=== PATIENT | female | born 1955 | race Caucasian/White ===

== ENCOUNTER → 2016-10-29 | Outpatient (CLI) | payer MEDICARE, MEDICAID ==
[~2016-10-29] MED LIST: /CELE20CA PO; /DULO30CA OR; /MAGN64TA PO; /SUCR1TA OR; ADVIL PO; ALBU20IN INH; ALEV1TAB PO; ALEV220C2 PO; AMBI10TA OR; ARGININE PO; BISA5TAB7 PO; BUTR5DIS2 TD; CELE100C OR; CLON-412 PO; CO Q30CA4 PO; COLA100C3 PO; DEPA250T2 PO; DOCU10CA PO; DOCU10ELUD PO; EMLA2.5C EX; FISH500C PO; GABA-283 PO; GARC500T PO; IRON325T3 PO; LEVO25TA4 PO; LIDO1OIN2 TOP; MAGN250T PO; MORP-39 PO; MULTTAB4 PO; NATU400T PO; NEUR400C OR; PANT40TA2 PO; PENI50TA PO; PERC5TAB8 PO; PRED5TAB OR; PRED5TAB PO; PRIL40CA OR; PROBCAP4 PO; SKINNY FIBER PO; SUCR1SUS PO; TRAM50TA2 OR; TRAM50TA2 PO; TRAZ100T2 PO; VENTAER INH; VITA400C35 PO; VITA500T53 PO; VITAMIN D50000 UNT OR; [UNRECOGNIZED DRUG - CODE] PO; [UNRECOGNIZED DRUG - OTHER] PO; [UNRECOGNIZED DRUG - OTHER] PO
--- NOTE | 2016-11-12 01:14 | ECWPNPC ---
PATIENT NAME: DARLENE HICKEY : 1955 GENDER: FEMALE VISIT DATE: 10/29/2016 DISCHARGE DATE: 10/29/16 1212 VISIT LOCKED DATE TIME: PHYSICIAN: AMY SHAH RESOURCE: AMY SHAH REASON FOR APPOINTMENT 1. NECK HISTORY OF PRESENT ILLNESS HISTORY OF PRESENT ILLNESS: HERE FOR F/U AND MANAGEMENT OF CHRONIC NECK PAIN.PATIENT HAS RHEUMATOID ARTHRITIS ACCORDING TO NEUROLOGY BUT FOLLOWS WITH RHEUMATOLOGY AND SAYS THEY DONT FEEL IT IS BAD ENOUGH TO BE ON ANTIRHEUMATOID MEDICATION. RATING PAIN VAS 4/10.PAIN IS DESCRIBED INTERMITTENT SORENESS.CURRENTLY USING MS CONTIN 30MG BID,OXYCODONE 10/325 Q6H PRN AND TRAMADOL 50MG TID.C/O OF INCREASE IN MAINLY LEFT NECK AND RIGHT KNEE PAIN LATELY.DISCUSSED PLAN TO SLOWLY REDUCE AND DISCONTINUE HIGH DOSE DAILY NARCOTIC EXPOSURE AND PATIENT IS RECEPTIVE.SHE FORGOT HER MEDICATION TODAY. PAIN THE PATIENT DESCRIBES THE PAIN... THE PATIENT DESCRIBES THE PAIN... THE PATIENT DESCRIBES THE PAIN... THE PATIENT DESCRIBES THE PAIN... FALL RISK SCREENING: SCREENING :NO FALLS IN THE PAST YEAR CURRENT MEDICATIONS TAKING VENTOLIN HFA 108 (90 BASE) MCG/ACT AEROSOL SOLUTION 2 PUFFS INHALATION QID PRN TAKING CARAFATE 1 GM TABLET 1 TABLET ORALLY THREE X DAILY TAKING COLACE 100 MG CAPSULE 1 CAPSULE NEEDED ORALLY TWICE A DAY TAKING CYMBALTA 60 MG CAPSULE DELAYED RELEASE PARTICLES 1 CAPSULE ORALLY ONCE A DAY TAKING MULTIVITAMINS TABLET 1 TABLET ORALLY ONCE A DAY TAKING PROTONIX 40 MG TABLET DELAYED RELEASE 1 TABLET ORALLY ONCE A DAY TAKING AMBIEN 10 MG TABLET 1 TABLET AT BEDTIME NEEDED ORALLY ONCE A DAY- MDD=1 TAKING GARCINIA CAMBOGIA-CHROMIUM 500-200 MG-MCG TABLET ORALLY DAILY TAKING LIDOCAINE 5 % OINTMENT 1 APPLICATION TO AFFECTED AREA NEEDED EXTERNALLY DAILY NEEDED TO LOW BACK TAKING GABAPENTIN 400 MG TABLET 1 CAPSULE ORALLY TID TAKING ROPINIROLE HCL 0.25 MG TABLET DIRECTED ORALLY 1 TAB 2HR PRE HS TAKING LEVOTHYROXINE SODIUM 25 MCG TABLET 1 TABLET ON AN EMPTY STOMACH IN THE MORNING ORALLY ONCE A DAY TAKING TRAMADOL HCL 50 MG TABLET 1 TABLET NEEDED ORALLY EVERY 6 -8 PRN PAIN MDD3 TAKING MORPHINE SULFATE ER 30 MG TABLET EXTENDED RELEASE 1 TABLET ORALLY EVERY 12 HRS MDD2 TAKING OXYCODONE-ACETAMINOPHEN 10-325 MG TABLET 1 TABLET NEEDED ORALLY EVERY 6 HRS PRN MDD-4 TAKING VITAMIN D (ERGOCALCIFEROL) 96115 UNIT CAPSULE 1 CAPSULE ORALLY 2X/WEEK NOT-TAKING FISH OIL 1200 MG CAPSULE 1 CAPSULE ORALLY ONCE A DAY NOT-TAKING MILK THISTLE 500 MG CAPSULE ORALLY DAILY NOT-TAKING SLOW-MAG 71.5-119 MG TABLET DELAYED RELEASE 2 TABLETS ORALLY ONCE A DAY NOT-TAKING VITAMIN D3 14484 UNIT CAPSULE 1 TABLET ORALLY TWICE A WEEK NOT-TAKING VITAMIN E 100 UNIT CAPSULE 1 CAPSULE ORALLY ONCE A DAY DISCONTINUED VITAMIN D 2000 UNIT TABLET 1 TABLET ORALLY ONCE A DAY MEDICATION LIST REVIEWED AND RECONCILED WITH THE PATIENT PAST MEDICAL HISTORY HX NECK FUSION HX ULCERS FIBROMYALGIA GERD HYPOTHYROID KNEE PAIN - ARTHRITIS OSTEOARTHRITIS INSOMNIA LOW VITAMIN D DEGENERATIVE DISC DISEASE OBESITY HIGH - 310 DIVERTICULITIS SLEEP APNEA 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 POS COPD HISTORY OF PULMONARY EMBOLISM VERTIGO GASTRIC ULCER ANEURESYM BRAIN STEM ALLERGIES CIPRO: THROAT SWELLING: ALLERGY LYRICA: MEMORY LOSS: SIDE EFFECTS ROBAXIN: RASH: ALLERGY SURGICAL HISTORY EYE OPERATION - LEFT "LAZY EYE" 1964 C - SECTION 1979 C- SECTION 1988 BREAST REDUCTION 1998 GASTRIC BYPASS 2005 GALLBALDDER 2008 CYST REMOVAL (BENIGN) ARM AND BACK 2009 LEFT KNEE SURGERY 2009 RIGHT KNEE SURGERY 2010 HERNIA SURGERY 2009 APPENDECTOMY WITH COMPLICATIONS (COLOSTOMY BAG - REMOVED 10/07) 2010 REMOVED SEVERAL CYSTS FROM COLON AND BREASTS (ABSCESSES) 2010 HERNIAS REPAIRED X 2 09/2011 NECK FUSION C5-6-7-8 2010 UPPER ENDOSCOPY 10/2011 COLONOSCOPY 09/06 EPIDURAL 02/04/15 INCISIONAL HERNIA REPAIR 09/2016 HOSPITALIZATION/MAJOR DIAGNOSTIC PROCEDURE COPD FLARE UP X2 05/11 SURGERY SURGERY 10/12 REVIEW OF SYSTEMS CONSTITUTIONAL: ANY CHANGE IN YOUR MEDICAL CONDITION? YES, IN SEPTEMBER WAS IN HOSPITAL FOR ABD. PAIN. HAD INCISIONAL HERNIA REPAIR AND FOUND INFECTED MESH FROM CHOLECYSTECTOMY SURGERY. ALSO HAD EGD AND ULCER WAS DIAGNOSED . CHILLS NO . FEVER NO . INFECTION: DO YOU HAVE NEW INFECTIONS? NO . DO YOU HAVE HISTORY OF MRSA? NO . MUSCULOSKELETAL: ANY NEW PATTERNS OF PAIN OR NUMBNESS? NO . GASTROENTEROLOGY: ANY NEW CHANGE IN BOWEL CONTROL? NO . GENITOURINARY: ANY NEW CHANGE IN BLADDER CONTROL? NO . IS THERE A CHANCE YOU COULD BE ? NO . HEMATOLOGY/LYMPH: DO YOU TAKE ANY BLOOD THINNERS? (FOR EXAMPLE- COUMADIN, PLAVIX, AGGRENOX, PLATEL, PRADAXA, OR XARELTO) NO . WHEN WAS YOUR LAST DOSE? DATE: TIME: . NEUROLOGY: HAVE YOU FALLEN IN THE PAST 6 MONTHS? NO . ANY NEW EXTREMITY NUMBNESS OR WEAKNESS? NO . CARDIOLOGY: DO YOU HAVE A PACEMAKER OR DEFIBRILLATOR? NO . RESPIRATORY: HAVE YOU BEEN SICK IN THE PAST WEEK? NO . FEVER NO . FLU LIKE SYMPTOMS? NO . COUGH NO . INTEGUMENTARY: DO YOU HAVE ANY RASHES OR OPEN SORES? NO . ALLERGIC/IMMUNO: ARE YOU ALLERGIC TO SHELLFISH OR IV DYE? NO . ANY NEW ALLERGIES? NO . PSYCHIATRIC: DO YOU HAVE THOUGHTS OF HURTING YOURSELF OR SOMEONE ELSE? NO . ARE YOU ABUSED, NEGLECTED, OR IN AN UNSAFE ENVIRONMENT? NO . ENDOCRINOLOGY: ARE YOU DIABETIC? NO . OTHER: DO YOU NEED ANY PRESCRIPTIONS? NO . IF YES, PLEASE LIST: ____ . ANY NEW PROBLEMS WITH YOUR MEDICATIONS? NO . WHEN DID YOU LAST EAT? ____ . WHEN DID YOU LAST DRINK? ____ . WHAT DID YOU LAST DRINK? ____ . NAME OF PERSON DRIVING YOU HOME? ____ . DO YOU HAVE ANY OTHER QUESTIONS OR CONCERNS NO . REVIEWED BY: PROVIDER: AMY BENTON . VITAL SIGNS WT 193.4 LBS, HT 62.5 IN, BMI 34.81 INDEX, BP 146/67 MM HG, HR 74 /MIN, RR 18 /MIN, TEMP 97.6 F, OXYGEN SAT % 96%, NA INITIALS TL 1114, REVIEWED BY: AD. EXAMINATION GENERAL EXAMINATION: LUNGS:LUNG SOUNDS ARE CLEAR. HEART:HEART RATE REGULAR. MUSCULOSKELETAL:*, MUSCLE STRENGTH TESTING 5/5 BILATERAL UPPER EXTREMITIES , PALPATION: POSITIVE FOR PAIN OVER CERVICAL SPINE. POSITIVE FOR PAIN OVER CERVICAL PARASPINALS. DIAGNOSTIC: . ASSESSMENTS POST LAMINECTOMY SYNDROME - M96.1 (PRIMARY) CHRONIC PRESCRIPTION OPIATE USE - Z79.891 INFLAMMATORY ARTHROPATHY - M19.90 TREATMENT POST LAMINECTOMY SYNDROME CONTINUE COLACE CAPSULE, 100 MG, 1 CAPSULE NEEDED, ORALLY, TWICE A DAY CONTINUE CYMBALTA CAPSULE DELAYED RELEASE PARTICLES, 60 MG, 1 CAPSULE, ORALLY, ONCE A DAY CONTINUE ROPINIROLE HCL TABLET, 0.25 MG, DIRECTED, ORALLY, 1 TAB 2HR PRE HS REFILL TRAMADOL HCL TABLET, 50 MG, 1 TABLET NEEDED, ORALLY, EVERY 6 -8 PRN PAIN MDD3, 30 DAY(S), 90, REFILLS 1 DECREASE MORPHINE SULFATE ER TABLET EXTENDED RELEASE, 30 MG, 1 TABLET, ORALLY, DAILY MDD1, 30 DAY(S), 30, REFILLS 0 START MORPHINE SULFATE ER TABLET EXTENDED RELEASE, 15 MG, 1 TABLET, ORALLY, BEFORE BEDTIME, 30 DAY(S), 30, REFILLS 0 NOTES: ISTOP REGISTRY REVIEWED AND DEMNOSTRATES COMPLLIANCE. BRINGS IN MEDICATIONS WHICH IS APPROPRIATE FOR WHAT WAS DISPENSED. RECENT URINE TOXICOLOGY REVIEWED. NO UNAUTHORIZED MEDICATIONS. NO ILLICIT SUBSTANCES AND PRESCRIBED MEDICATIONS WERE PRESENT. , RISKS AND BENEFITS OF NARCOTIC/OPIOD MEDICATIONS WERE REVIEWED WITH PATIENT - THIS INCLUDES BUT IS NOT LIMITED TO RISK OF DEPENDANCE/DEVELOPMENT OF ADDICTION, MOOD DISTURBANCE AND DEPRESSION, OSTEOPOROSIS, HORMONAL AND LABIDAL CHANGES, RESPIRATORY DEPRESSION AND . PATIENT IS ADVISED NOT TO DRIVE WHILE ON THESE MEDICATIONS.URINE TOX TODAY. REFERRAL TO:PHYSICAL THERAPIST REASON:CERVICALGIA-MYOFASCIAL [id number] MYOFASCIAL RELEASE PROCEDURE CODES FA211 ESTABILISHED PATIENT [facility] CHARGE G8730 PAIN ASSESS POS TOOL F/U PLAN DOC G8427 DOC MEDS VERIFIED W/PT OR RE DISPOSITION & COMMUNICATION FOLLOW UP 6 WEEKS ELECTRONICALLY SIGNED BY CHETAN RENEE ON 11/11/2016 AT 04:53 PM EDT DISCLAIMER : THIS IS A VISIT SUMMARY EXTRACTED FROM THE [facility]. IT IS NOT A COPY OF THE [employer] PROGRESS NOTE. [facility]
== END ==
LOC: M PAIN 10:20
PROVIDERS: ATTEND Nurse Practitioner Family
DX: G89.29 Other chronic pain (principal); M54.2 Cervicalgia; M96.1 Postlaminectomy syndrome, not elsewhere classified; M79.7 Fibromyalgia; K21.9 Gastro-esophageal reflux disease without esophagitis; E03.9 Hypothyroidism, unspecified; M17.10 Unilateral primary osteoarthritis, unspecified knee; G47.30 Sleep apnea, unspecified; E55.9 Vitamin D deficiency, unspecified; J44.9 Chronic obstructive pulmonary disease, unspecified; E66.9 Obesity, unspecified; Z68.34 Body mass index [BMI] 34.0-34.9, adult; Z79.891 Long term (current) use of opiate analgesic; Z79.899 Other long term (current) drug therapy; Z88.8 Allergy status to other drugs, medicaments and biological substances

== ENCOUNTER → 2016-11-24 | Outpatient (CLI) | payer MEDICARE, MEDICAID ==
--- NOTE | 2016-11-24 16:21 | REP ---
BILATERAL KNEE, 11 VIEWS: HISTORY: Pain. RIGHT KNEE: COMPARISON: 01/18/2014 There is no acute fracture or dislocation. There is narrowing of the joint spaces with associated osteophyte formation. A small suprapatellar joint effusion is present. IMPRESSION: Degenerative change as described above. LEFT KNEE: There is no acute fracture or dislocation. There is narrowing of the joint spaces with associated osteophyte formation. A small suprapatellar joint effusion is present.
== END ==
LOC: M CLY 12:03
PROVIDERS: ATTEND Internal Medicine Rheumatology
DX: M25.462 Effusion, left knee (principal); M17.0 Bilateral primary osteoarthritis of knee; R73.01 Impaired fasting glucose; E78.5 Hyperlipidemia, unspecified; E03.9 Hypothyroidism, unspecified; Z98.890 Other specified postprocedural states

== ENCOUNTER → 2016-11-24 | Outpatient (REF) | payer MEDICARE, MEDICAID ==
[2016-11-24 17:32] LABS: VITAMIN B12 LEVEL 453 PG/ML (247-911)
[2016-11-24 17:33] LABS: FOLATE 17.4 NG/ML (>5.4)
[2016-11-24 18:15] LABS: BASO % 0.4 % (0.0-1.0); EOS # 0.2 K/mm3 (0.0-0.50); EOS % 1.9 % (0.0-3.0); LARGE UNSTAINED CELL # 0.1 K/mm3 (0.0-0.4); LARGE UNSTAINED CELL % 1.3 % (0.0-4.0); LYMPH # 2.7 K/mm3 (1.5-4.5); LYMPH % 29.3 % (24.0-44.0); MEAN CORPUSCULAR HEMOGLOBIN 27.2 pg (27.0-33.0); MEAN CORPUSCULAR HGB CONC 31.4 g/dl (32.0-36.5); MEAN CORPUSCULAR VOLUME 86.5 fl (80.0-96.0); MONO # 0.4 K/mm3 (0.0-0.8); MONO % 4.5 % (0.0-5.0); NEUTROPHILS # 5.7 K/mm3 (1.8-7.7); NEUTROPHILS % 62.6 % (36.0-66.0); PLATELET COUNT, AUTOMATED 310 k/mm3 (150-450); RED CELL DISTRIBUTION WIDTH 14.4 % (11.5-14.5); WHITE BLOOD COUNT 9.2 K/mm3 (4.0-10.0)
[2016-11-24 18:31] LABS: ALBUMIN 3.5 GM/DL (3.2-5.2); ALBUMIN/GLOBULIN RATIO 1.25 (1.00-1.93); ALKALINE PHOSPHATASE 114 U/L (45-117); ALT/SGPT 17 U/L (12-78); ANION GAP 7 MEQ/L (8-16); AST/SGOT 11 U/L (15-37); BILIRUBIN,TOTAL 0.4 MG/DL (0.2-1.0); BLOOD UREA NITROGEN 14 MG/DL (7-18); CALCIUM LEVEL 8.2 MG/DL (8.8-10.2); CARBON DIOXIDE LEVEL 29 MEQ/L (21-32); CHLORIDE LEVEL 105 MEQ/L (98-107); CHOLESTEROL LEVEL 176 MG/DL (<200); FERRITIN 27 NG/ML (8-252); GLOMERULAR FILTRATION RATE > 60.0 (>45); GLUCOSE, FASTING 81 MG/DL (80-110); MAGNESIUM LEVEL 1.8 MG/DL (1.8-2.4); PERCENT SATURATION 9.3 % (13.2-37.4); SODIUM LEVEL 141 MEQ/L (136-145); TOTAL IRON BINDING CAPACITY 375 UG/DL (250-450); TOTAL PROTEIN 6.3 GM/DL (6.4-8.2); TRIGLYCERIDES LEVEL 87 MG/DL (<150)
== END ==
LOC: M SFHCCLAY 11:46
PROVIDERS: ATTEND Nurse Practitioner Family
DX: R73.01 Impaired fasting glucose (principal); E78.5 Hyperlipidemia, unspecified; E03.9 Hypothyroidism, unspecified; Z98.890 Other specified postprocedural states

== ENCOUNTER → 2017-01-06 | Outpatient (CLI) | payer MEDICARE, MEDICAID ==
[~2017-01-06] MED LIST changes: -COLA100C3 PO; +COLA100C5 PO
--- NOTE | 2017-01-28 01:00 | ECWPNPC ---
PATIENT NAME: DARLENE HICKEY : 1955 GENDER: FEMALE VISIT DATE: 01/06/2017 DISCHARGE DATE: 01/06/17 1235 VISIT LOCKED DATE TIME: PHYSICIAN: AMY SHAH RESOURCE: AMY SHAH REASON FOR APPOINTMENT 1. NECK HISTORY OF PRESENT ILLNESS HISTORY OF PRESENT ILLNESS: HERE FOR F/U AND MANAGEMENT OF CHRONIC NECK PAIN.PATIENT HAS RHEUMATOID ARTHRITIS ACCORDING TO NEUROLOGY BUT FOLLOWS WITH RHEUMATOLOGY AND SAYS THEY DONT FEEL IT IS BAD ENOUGH TO BE ON ANTIRHEUMATOID MEDICATION. RATING PAIN VAS 4/10.PAIN IS DESCRIBED INTERMITTENT SORENESS.CURRENTLY USING MS CONTIN 15MG TWO IN AM AND ONE AT NIGHT,OXYCODONE 10/325 Q6H PRN AND TRAMADOL 50MG TID.C/O OF INCREASE IN MAINLY LEFT NECK AND RIGHT KNEE PAIN LATELY.DISCUSSED PLAN TO SLOWLY REDUCE AND DISCONTINUE HIGH DOSE DAILY NARCOTIC EXPOSURE AND PATIENT IS RECEPTIVE.SHE FORGOT HER MEDICATION TODAY. PAIN THE PATIENT DESCRIBES THE PAIN... THE PATIENT DESCRIBES THE PAIN... THE PATIENT DESCRIBES THE PAIN... THE PATIENT DESCRIBES THE PAIN... THE PATIENT DESCRIBES THE PAIN... FALL RISK SCREENING: SCREENING :NO FALLS IN THE PAST YEAR CURRENT MEDICATIONS TAKING VENTOLIN HFA 108 (90 BASE) MCG/ACT AEROSOL SOLUTION 2 PUFFS INHALATION QID PRN TAKING CARAFATE 1 GM TABLET 1 TABLET ORALLY THREE X DAILY TAKING MULTIVITAMINS TABLET 1 TABLET ORALLY ONCE A DAY TAKING GABAPENTIN 400 MG TABLET 1 CAPSULE ORALLY TID TAKING LEVOTHYROXINE SODIUM 25 MCG TABLET 1 TABLET ON AN EMPTY STOMACH IN THE MORNING ORALLY ONCE A DAY TAKING VITAMIN D (ERGOCALCIFEROL) 52016 UNIT CAPSULE 1 CAPSULE ORALLY 2X/WEEK TAKING COLACE 100 MG CAPSULE 1 CAPSULE NEEDED ORALLY TWICE A DAY TAKING TRAMADOL HCL 50 MG TABLET 1 TABLET NEEDED ORALLY EVERY 6 -8 PRN PAIN MDD3 TAKING MORPHINE SULFATE ER 30 MG TABLET EXTENDED RELEASE 1 TABLET ORALLY DAILY MDD1 TAKING FERROUS SULFATE 325 (65 FE) MG TABLET DELAYED RELEASE 1 TABLET ORALLY TWICE A DAY TAKING MORPHINE SULFATE ER 15 MG TABLET EXTENDED RELEASE 1 TABLET ORALLY Q8H TID MDD3 TAKING OXYCODONE-ACETAMINOPHEN 10-325 MG TABLET 1 TABLET NEEDED ORALLY EVERY 6 HRS PRN MDD-4 TAKING PROTONIX 40 MG TABLET DELAYED RELEASE 1 TABLET ORALLY ONCE A DAY TAKING AMBIEN 10 MG TABLET 1 TABLET AT BEDTIME NEEDED ORALLY ONCE A DAY- MDD=1 TAKING CYMBALTA 60 MG CAPSULE DELAYED RELEASE PARTICLES 1 CAPSULE ORALLY ONCE A DAY TAKING ROPINIROLE HCL 0.25 MG TABLET DIRECTED ORALLY 1 TAB 2HR PRE HS NOT-TAKING LIDOCAINE 5 % OINTMENT 1 APPLICATION TO AFFECTED AREA NEEDED EXTERNALLY DAILY NEEDED TO LOW BACK MEDICATION LIST REVIEWED AND RECONCILED WITH THE PATIENT PAST MEDICAL HISTORY HX NECK FUSION HX ULCERS FIBROMYALGIA GERD HYPOTHYROID KNEE PAIN - ARTHRITIS OSTEOARTHRITIS INSOMNIA LOW VITAMIN D DEGENERATIVE DISC DISEASE OBESITY HIGH - 310 DIVERTICULITIS SLEEP APNEA 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 POS COPD HISTORY OF PULMONARY EMBOLISM VERTIGO GASTRIC ULCER ANEURESYM BRAIN STEM ALLERGIES CIPRO: THROAT SWELLING: ALLERGY LYRICA: MEMORY LOSS: SIDE EFFECTS ROBAXIN: RASH: ALLERGY SURGICAL HISTORY EYE OPERATION - LEFT "LAZY EYE" 1964 C - SECTION 1979 C- SECTION 1988 BREAST REDUCTION 1998 GASTRIC BYPASS 2005 GALLBALDDER 2007 CYST REMOVAL (BENIGN) ARM AND BACK 2009 LEFT KNEE SURGERY 2008 RIGHT KNEE SURGERY 2009 HERNIA SURGERY 2009 APPENDECTOMY WITH COMPLICATIONS (COLOSTOMY BAG - REMOVED 10/07) 2010 REMOVED SEVERAL CYSTS FROM COLON AND BREASTS (ABSCESSES) 2010 HERNIAS REPAIRED X 2 09/2011 NECK FUSION C5-6-7-8 2010 UPPER ENDOSCOPY 10/2011 COLONOSCOPY 09/06 EPIDURAL 02/04/15 INCISIONAL HERNIA REPAIR 09/2016 HOSPITALIZATION/MAJOR DIAGNOSTIC PROCEDURE COPD FLARE UP X2 05/11 SURGERY SURGERY 10/12 REVIEW OF SYSTEMS REVIEWED BY: PROVIDER: AMY BENTON . CONSTITUTIONAL: ANY CHANGE IN YOUR MEDICAL CONDITION? NO . CHILLS NO . FEVER NO . INFECTION: DO YOU HAVE NEW INFECTIONS? NO . DO YOU HAVE HISTORY OF MRSA? NO . MUSCULOSKELETAL: ANY NEW PATTERNS OF PAIN OR NUMBNESS? NO . GASTROENTEROLOGY: ANY NEW CHANGE IN BOWEL CONTROL? NO . GENITOURINARY: ANY NEW CHANGE IN BLADDER CONTROL? NO . IS THERE A CHANCE YOU COULD BE ? NO . HEMATOLOGY/LYMPH: DO YOU TAKE ANY BLOOD THINNERS? (FOR EXAMPLE- COUMADIN, PLAVIX, AGGRENOX, PLATEL, PRADAXA, OR XARELTO) NO . WHEN WAS YOUR LAST DOSE? DATE: TIME: . NEUROLOGY: HAVE YOU FALLEN IN THE PAST 6 MONTHS? YES, PT STATES HER KNEES GIVE OUT AND SHE FALLS ON OCCASION. . ANY NEW EXTREMITY NUMBNESS OR WEAKNESS? NO . CARDIOLOGY: DO YOU HAVE A PACEMAKER OR DEFIBRILLATOR? NO . RESPIRATORY: HAVE YOU BEEN SICK IN THE PAST WEEK? NO . FEVER NO . FLU LIKE SYMPTOMS? NO . COUGH NO . INTEGUMENTARY: DO YOU HAVE ANY RASHES OR OPEN SORES? NO . ALLERGIC/IMMUNO: ARE YOU ALLERGIC TO SHELLFISH OR IV DYE? NO . ANY NEW ALLERGIES? NO . PSYCHIATRIC: DO YOU HAVE THOUGHTS OF HURTING YOURSELF OR SOMEONE ELSE? NO . ARE YOU ABUSED, NEGLECTED, OR IN AN UNSAFE ENVIRONMENT? NO . ENDOCRINOLOGY: ARE YOU DIABETIC? NO . OTHER: DO YOU NEED ANY PRESCRIPTIONS? YES, MORPHINE, OXYCODONE, TRAMADOL, GABAPENTIN . IF YES, PLEASE LIST: ____ . ANY NEW PROBLEMS WITH YOUR MEDICATIONS? NO . WHEN DID YOU LAST EAT? ____ . WHEN DID YOU LAST DRINK? ____ . WHAT DID YOU LAST DRINK? ____ . NAME OF PERSON DRIVING YOU HOME? ____ . DO YOU HAVE ANY OTHER QUESTIONS OR CONCERNS NO . VITAL SIGNS WT 196 LBS, HT 62.5 IN, BMI 35.27 INDEX, BP 144/83 MM HG, HR 72 /MIN, RR 16 /MIN, TEMP 97.3 F, OXYGEN SAT % 94, SAFE IN ENV? (Y/N) Y, REVIEWED BY: EM. EXAMINATION GENERAL EXAMINATION: LUNGS:LUNG SOUNDS ARE CLEAR. HEART:HEART RATE REGULAR. MUSCULOSKELETAL:*, MUSCLE STRENGTH TESTING 5/5 BILATERAL UPPER EXTREMITIES , PALPATION: POSITIVE FOR PAIN OVER CERVICAL SPINE. POSITIVE FOR PAIN OVER CERVICAL PARASPINALS. DIAGNOSTIC: . ASSESSMENTS POST LAMINECTOMY SYNDROME - M96.1 (PRIMARY) CHRONIC PRESCRIPTION OPIATE USE - Z79.891 INFLAMMATORY ARTHROPATHY - M19.90 TREATMENT POST LAMINECTOMY SYNDROME REFILL GABAPENTIN TABLET, 400 MG, 1 CAPSULE, ORALLY, TID, 30 DAY(S), 90 CAPSULE, REFILLS 5 DECREASE TRAMADOL HCL TABLET, 50 MG, 1 TABLET NEEDED, ORALLY, Q6-8H MDD2, 30 DAY(S), 60, REFILLS 1 DECREASE MORPHINE SULFATE ER TABLET EXTENDED RELEASE, 15 MG, 1 TABLET, ORALLY, BID MDD2, 30 DAY(S), 60, REFILLS 0 REFILL OXYCODONE-ACETAMINOPHEN TABLET, 10-325 MG, 1 TABLET NEEDED, ORALLY, EVERY 6 HRS PRN MDD-4, 30 DAY(S), 120, REFILLS 0 NOTES: REDUCE MS CONTIN 15MG TO ONE AM AND ONE PM REDUCE TRAMADOL TO 50MG TWICE A DAY IF NEEDED, ISTOP REGISTRY REVIEWED AND DEMNOSTRATES COMPLLIANCE. BRINGS IN MEDICATIONS WHICH IS APPROPRIATE FOR WHAT WAS DISPENSED. RECENT URINE TOXICOLOGY REVIEWED. NO UNAUTHORIZED MEDICATIONS. NO ILLICIT SUBSTANCES AND PRESCRIBED MEDICATIONS WERE PRESENT. , RISKS AND BENEFITS OF NARCOTIC/OPIOD MEDICATIONS WERE REVIEWED WITH PATIENT - THIS INCLUDES BUT IS NOT LIMITED TO RISK OF DEPENDANCE/DEVELOPMENT OF ADDICTION, MOOD DISTURBANCE AND DEPRESSION, OSTEOPOROSIS, HORMONAL AND LABIDAL CHANGES, RESPIRATORY DEPRESSION AND . PATIENT IS ADVISED NOT TO DRIVE WHILE ON THESE MEDICATIONS. PROCEDURE CODES FA211 ESTABILISHED PATIENT [facility] CHARGE G8730 PAIN ASSESS POS TOOL F/U PLAN DOC G8427 DOC MEDS VERIFIED W/PT OR RE DISPOSITION & COMMUNICATION FOLLOW UP 2 MONTHS ELECTRONICALLY SIGNED BY CHETAN RENEE ON 01/27/2017 AT 07:38 PM EDT DISCLAIMER : THIS IS A VISIT SUMMARY EXTRACTED FROM THE [employer] CHART. IT IS NOT A COPY OF THE [employer] PROGRESS NOTE. YURIY
== END ==
LOC: M PAIN 11:00
PROVIDERS: ATTEND Nurse Practitioner Family
DX: M96.1 Postlaminectomy syndrome, not elsewhere classified (principal); M54.2 Cervicalgia; M19.90 Unspecified osteoarthritis, unspecified site; K21.9 Gastro-esophageal reflux disease without esophagitis; E03.9 Hypothyroidism, unspecified; G47.30 Sleep apnea, unspecified; E55.9 Vitamin D deficiency, unspecified; E66.9 Obesity, unspecified; J44.9 Chronic obstructive pulmonary disease, unspecified; Z88.8 Allergy status to other drugs, medicaments and biological substances; Z79.891 Long term (current) use of opiate analgesic; Z79.899 Other long term (current) drug therapy

== ENCOUNTER → 2017-01-27 | Outpatient (REF) | payer MEDICARE, MEDICAID ==
[2017-01-27 17:51] LABS: CALCIUM LEVEL 8.8 MG/DL (8.8-10.2)
== END ==
LOC: M SFHCCLAY 12:29
PROVIDERS: ATTEND Nurse Practitioner Family
DX: Z98.890 Other specified postprocedural states (principal)

== ENCOUNTER → 2017-03-31 | Outpatient (CLI) | payer MEDICARE, MEDICAID ==
--- NOTE | 2017-04-20 01:03 | ECWPNPC ---
PATIENT NAME: DARLENE HICKEY : 1955 GENDER: FEMALE VISIT DATE: 03/31/2017 DISCHARGE DATE: 03/31/172 VISIT LOCKED DATE TIME: PHYSICIAN: AMY SHAH RESOURCE: AMY SHAH REASON FOR APPOINTMENT 1. MEDS HISTORY OF PRESENT ILLNESS HISTORY OF PRESENT ILLNESS: PAIN THE PATIENT DESCRIBES THE PAIN... FALL RISK SCREENING: SCREENING :NO FALLS IN THE PAST YEAR CURRENT MEDICATIONS TAKING VENTOLIN HFA 108 (90 BASE) MCG/ACT AEROSOL SOLUTION 2 PUFFS INHALATION QID PRN TAKING CARAFATE 1 GM TABLET 1 TABLET ORALLY THREE X DAILY TAKING MULTIVITAMINS TABLET 1 TABLET ORALLY ONCE A DAY TAKING VITAMIN D (ERGOCALCIFEROL) 02403 UNIT CAPSULE 1 CAPSULE ORALLY 2X/WEEK TAKING COLACE 100 MG CAPSULE 1 CAPSULE NEEDED ORALLY TWICE A DAY TAKING PROTONIX 40 MG TABLET DELAYED RELEASE 1 TABLET ORALLY ONCE A DAY TAKING CYMBALTA 60 MG CAPSULE DELAYED RELEASE PARTICLES 1 CAPSULE ORALLY ONCE A DAY TAKING ROPINIROLE HCL 0.25 MG TABLET DIRECTED ORALLY 1 TAB 2HR PRE HS TAKING GABAPENTIN 400 MG TABLET 1 CAPSULE ORALLY TID TAKING LEVOTHYROXINE SODIUM 25 MCG TABLET 1 TABLET ON AN EMPTY STOMACH IN THE MORNING ORALLY ONCE A DAY TAKING SLOW-MAG 71.5-119 MG TABLET DELAYED RELEASE 2 TABLETS ORALLY ONCE A DAY TAKING TRAMADOL HCL 50 MG TABLET 1 TABLET NEEDED ORALLY Q6-8H PRN PAIN MDD2 TAKING MORPHINE SULFATE ER 15 MG TABLET EXTENDED RELEASE 1 TABLET ORALLY BID MDD2 TAKING OXYCODONE-ACETAMINOPHEN 10-325 MG TABLET 1 TABLET NEEDED ORALLY EVERY 6 HRS PRN MDD-4 TAKING AMBIEN 10 MG TABLET 1 TABLET AT BEDTIME NEEDED ORALLY ONCE A DAY- MDD=1 NOT-TAKING MORPHINE SULFATE ER 30 MG TABLET EXTENDED RELEASE 1 TABLET ORALLY DAILY MDD1 NOT-TAKING LIDOCAINE 5 % OINTMENT 1 APPLICATION TO AFFECTED AREA NEEDED EXTERNALLY DAILY NEEDED TO LOW BACK MEDICATION LIST REVIEWED AND RECONCILED WITH THE PATIENT PAST MEDICAL HISTORY HX NECK FUSION HX ULCERS FIBROMYALGIA GERD HYPOTHYROID KNEE PAIN - ARTHRITIS OSTEOARTHRITIS INSOMNIA LOW VITAMIN D DEGENERATIVE DISC DISEASE OBESITY HIGH - 310 DIVERTICULITIS SLEEP APNEA 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 POS COPD HISTORY OF PULMONARY EMBOLISM VERTIGO GASTRIC ULCER ANEURESYM BRAIN STEM ALLERGIES CIPRO: THROAT SWELLING: ALLERGY LYRICA: MEMORY LOSS: SIDE EFFECTS ROBAXIN: RASH: ALLERGY SOCIAL HISTORY GENERAL: TOBACCO USE ARE YOU A:NONSMOKER ALCOHOL SCREENING DID YOU HAVE A DRINK CONTAINING ALCOHOL IN THE PAST YEAR?NO POINTS0 INTERPRETATIONNEGATIVE RECREATIONAL DRUG USE DRUG USE?NO HIV / HEP-C SCREENING HIV TEST OFFERED TO PATIENT:YES DATE OFFERED:11/25/2016 TEST ACCEPTED:NO REASON:PATIENT DECLINED HEP-C TEST OFFERED TO PATIENT:YES DATE OFFERED:11/25/2016 TEST ACCEPTED:NO REASON:PATIENT DECLINED ORTHODOXY ORTHODOXY NO CONFUCIANISM BELIEFS THAT WOULD IMPACT HEALTH CARE. LANGUAGE LANGUAGES SPOKEN:NIUEAN LEARNING BARRIERS / SPECIAL NEEDS BARRIERS TO LEARNING?NO HEARING IMPAIRED?NO VISION IMPAIRED?YES :CORRECTIVE LENSES COGNITIVELY IMPAIRED?NO READINESS TO LEARN?YES LEARNING PREFERENCES?NO LEARNING CAPABILITIES PRESENT?YES EMOTIONAL BARRIERS?NO SPECIAL DEVICES?NO DIRECTOR OF PUBLIC WORKS NEEDED?NO NEW PATIENT PAIN DIARY TODAY'S VISITNOTES FROM 0-10, WHAT LEVEL IS YOUR PAIN TODAY?0 PAIN CLINIC PFS, CLERGY, PUBLIC HEALTH REFERRALS PFS REFERRAL NEEDED?NO CLERGY REFERRAL NEEDED?NO PUBLIC HEALTH REFERRAL NEEDED?NO WAS THE PROVIDER NOTIFIED OF ANY PERTINENT INFO?NO HAS THE PATIENT BEEN EDUCATED REGARDING HIS/HER PLAN OF CARE?YES HAS THE PATIENT BEEN EDUCATED REGARDING PAIN, THE RISK FOR PAIN, THE IMPORTANCE OF EFFECTIVE PAIN MANAGEMENT, AND THE PAIN ASSESSMENT PROCESS?YES DOMESTIC VIOLENCE DO YOU FEEL SAFE IN YOUR ENVIRONMENT?YES REVIEW OF SYSTEMS REVIEWED BY: PROVIDER: AMY BENTON . CONSTITUTIONAL: ANY CHANGE IN YOUR MEDICAL CONDITION? NO . CHILLS NO . FEVER NO . INFECTION: DO YOU HAVE NEW INFECTIONS? NO . DO YOU HAVE HISTORY OF MRSA? NO . MUSCULOSKELETAL: ANY NEW PATTERNS OF PAIN OR NUMBNESS? NO . GASTROENTEROLOGY: ANY NEW CHANGE IN BOWEL CONTROL? NO . GENITOURINARY: ANY NEW CHANGE IN BLADDER CONTROL? NO . IS THERE A CHANCE YOU COULD BE ? NO . HEMATOLOGY/LYMPH: DO YOU TAKE ANY BLOOD THINNERS? (FOR EXAMPLE- COUMADIN, PLAVIX, AGGRENOX, PLATEL, PRADAXA, OR XARELTO) NO . WHEN WAS YOUR LAST DOSE? DATE: TIME: . NEUROLOGY: HAVE YOU FALLEN IN THE PAST 6 MONTHS? NO . ANY NEW EXTREMITY NUMBNESS OR WEAKNESS? NO . CARDIOLOGY: DO YOU HAVE A PACEMAKER OR DEFIBRILLATOR? NO . RESPIRATORY: HAVE YOU BEEN SICK IN THE PAST WEEK? NO . FEVER NO . FLU LIKE SYMPTOMS? NO . COUGH NO . INTEGUMENTARY: DO YOU HAVE ANY RASHES OR OPEN SORES? NO . ALLERGIC/IMMUNO: ARE YOU ALLERGIC TO SHELLFISH OR IV DYE? NO . ANY NEW ALLERGIES? NO . PSYCHIATRIC: DO YOU HAVE THOUGHTS OF HURTING YOURSELF OR SOMEONE ELSE? NO . ARE YOU ABUSED, NEGLECTED, OR IN AN UNSAFE ENVIRONMENT? NO . ENDOCRINOLOGY: ARE YOU DIABETIC? NO . OTHER: DO YOU NEED ANY PRESCRIPTIONS? NO . IF YES, PLEASE LIST: ____ . ANY NEW PROBLEMS WITH YOUR MEDICATIONS? NO . WHEN DID YOU LAST EAT? ____ . WHEN DID YOU LAST DRINK? ____ . WHAT DID YOU LAST DRINK? ____ . NAME OF PERSON DRIVING YOU HOME? ____ . DO YOU HAVE ANY OTHER QUESTIONS OR CONCERNS NO . VITAL SIGNS WT 198 LBS, HT 62.5 IN, BMI 35.63 INDEX, BP 142/79 MM HG, HR 75 /MIN, RR 18 /MIN, TEMP 97.5 F, OXYGEN SAT % 98%, NA INITIALS SC 15:32, REVIEWED BY: CS. ASSESSMENTS POST LAMINECTOMY SYNDROME - M96.1 (PRIMARY) CHRONIC PRESCRIPTION OPIATE USE - Z79.891 INFLAMMATORY ARTHROPATHY - M19.90 TREATMENT POST LAMINECTOMY SYNDROME CONTINUE ROPINIROLE HCL TABLET, 0.25 MG, DIRECTED, ORALLY, 1 TAB 2HR PRE HS, 30 DAY(S), 30, REFILLS 2 CONTINUE GABAPENTIN TABLET, 400 MG, 1 CAPSULE, ORALLY, TID, 30 DAY(S), 90 CAPSULE, REFILLS 2 CONTINUE TRAMADOL HCL TABLET, 50 MG, 1 TABLET NEEDED, ORALLY, Q6-8H PRN PAIN MDD2, 30 DAY(S), 60, REFILLS 2 STOP MORPHINE SULFATE ER TABLET EXTENDED RELEASE, 15 MG, 1 TABLET, ORALLY, DAILY X 15 DAYS THEN STOP MDD1, 30 DAYS, 15 CONTINUE OXYCODONE-ACETAMINOPHEN TABLET, 10-325 MG, 1 TABLET NEEDED, ORALLY, EVERY 6 HRS PRN MDD-4, 30 DAY(S), 120, REFILLS 0 NOTES: [employer] REGISTRY REVIEWED [id number] RISKS AND BENEFITS OF NARCOTIC/OPIOD MEDICATIONS WERE REVIEWED WITH PATIENT - THIS INCLUDES BUT IS NOT LIMITED TO RISK OF DEPENDANCE/DEVELOPMENT OF ADDICTION, MOOD DISTURBANCE AND DEPRESSION, OSTEOPOROSIS, HORMONAL AND LABIDAL CHANGES, RESPIRATORY DEPRESSION AND . PATIENT IS ADVISED NOT TO DRIVE WHILE ON THESE MEDICATIONS, AND DEMNOSTRATES COMPLLIANCE. BRINGS IN MEDICATIONS WHICH IS APPROPRIATE FOR WHAT WAS DISPENSED. RECENT URINE TOXICOLOGY REVIEWED. NO UNAUTHORIZED MEDICATIONS. NO ILLICIT SUBSTANCES AND PRESCRIBED MEDICATIONS WERE PRESENT. PROCEDURE CODES FA211 ESTABILISHED PATIENT [facility] FACILITY CHARGE [id number] PAIN ASSESS POS TOOL F/U PLAN DOC G8427 DOC MEDS VERIFIED W/PT OR RE DISPOSITION & COMMUNICATION FOLLOW UP 3 MONTHS ELECTRONICALLY SIGNED BY CHETAN RENEE ON 04/19/2017 AT 07:59 AM EDT DISCLAIMER : THIS IS A VISIT SUMMARY EXTRACTED FROM THE [employer] CHART. IT IS NOT A COPY OF THE [employer] PROGRESS NOTE. YURIY
== END ==
LOC: M PAIN 14:45
PROVIDERS: ATTEND Nurse Practitioner Family
DX: M96.1 Postlaminectomy syndrome, not elsewhere classified (principal); M19.90 Unspecified osteoarthritis, unspecified site; E03.9 Hypothyroidism, unspecified; K21.9 Gastro-esophageal reflux disease without esophagitis; G47.00 Insomnia, unspecified; E55.9 Vitamin D deficiency, unspecified; E78.5 Hyperlipidemia, unspecified; Z88.8 Allergy status to other drugs, medicaments and biological substances; Z79.891 Long term (current) use of opiate analgesic; Z79.899 Other long term (current) drug therapy

== ENCOUNTER → 2017-10-29 | Outpatient (CLI) | payer MEDICARE, MEDICAID | LOC: M PAIN 10:00 | DX: M96.1 Postlaminectomy syndrome, not elsewhere classified (principal); M54.2 Cervicalgia; G89.29 Other chronic pain; M79.7 Fibromyalgia; K21.9 Gastro-esophageal reflux disease without esophagitis; E03.9 Hypothyroidism, unspecified; M17.10 Unilateral primary osteoarthritis, unspecified knee; G47.00 Insomnia, unspecified; E55.9 Vitamin D deficiency, unspecified; G47.30 Sleep apnea, unspecified; J44.9 Chronic obstructive pulmonary disease, unspecified; E66.01 Morbid (severe) obesity due to excess calories; Z68.38 Body mass index [BMI] 38.0-38.9, adult; Z79.899 Other long term (current) drug therapy; Z88.2 Allergy status to sulfonamides; Z88.8 Allergy status to other drugs, medicaments and biological substances; Z98.84 Bariatric surgery status; Z86.711 Personal history of pulmonary embolism; Z86.69 Personal history of other diseases of the nervous system and sense organs; Z86.79 Personal history of other diseases of the circulatory system | CPT/HCPCS: G0463 ==

== ENCOUNTER → 2017-11-10 | Outpatient (CLI) | payer MEDICARE, MEDICAID | LOC: M RAD 10:24 | DX: M96.1 Postlaminectomy syndrome, not elsewhere classified (principal) | CPT/HCPCS: 72141 ==

== ENCOUNTER → 2017-11-12 | Outpatient (REF) | payer MEDICARE, MEDICAID ==
[2017-11-12 17:22] LABS: ESTIMATED AVERAGE GLUCOSE 123 MG/DL (60-110); HEMOGLOBIN A1c 5.9 %
[2017-11-12 17:24] LABS: ALBUMIN 4.1 GM/DL (3.2-5.2); ALBUMIN/GLOBULIN RATIO 1.28 (1.00-1.93); ALKALINE PHOSPHATASE 114 U/L (45-117); ALT/SGPT 26 U/L (12-78); ANION GAP 9 MEQ/L (8-16); AST/SGOT 19 U/L (7-37); BILIRUBIN,TOTAL 0.7 MG/DL (0.2-1.0); BLOOD UREA NITROGEN 18 MG/DL (7-18); CALCIUM LEVEL 9.4 MG/DL (8.8-10.2); CARBON DIOXIDE LEVEL 26 MEQ/L (21-32); CHLORIDE LEVEL 105 MEQ/L (98-107); CHOLESTEROL LEVEL 207 MG/DL (<200); CHOLESTEROL RISK RATIO 3.184 (<5); CREATININE FOR GFR 1.24 MG/DL (0.55-1.30); FERRITIN 43 NG/ML (8-252); GLOMERULAR FILTRATION RATE 46.7 (>45); GLUCOSE, FASTING 107 MG/DL (70-100); HDL CHOLESTEROL 65 MG/DL (>40); IRON (FE) 56 UG/DL (50-170); LDL CHOLESTEROL 111.8 MG/DL (<100); MAGNESIUM LEVEL 1.6 MG/DL (1.8-2.4); NON-HDL-C 142 MG/DL; PERCENT SATURATION 13.5 % (13.2-45.0); POTASSIUM SERUM 4.3 MEQ/L (3.5-5.1); SODIUM LEVEL 140 MEQ/L (136-145); TOTAL IRON BINDING CAPACITY 416 UG/DL (250-450); TOTAL PROTEIN 7.3 GM/DL (6.4-8.2); TRIGLYCERIDES LEVEL 151 MG/DL (<150)
[2017-11-12 17:28] LABS: TOTAL 25(OH) VITAMIN D 31.5 NG/ML (30.0-100.0); VITAMIN B12 LEVEL 380 PG/ML (247-911)
[2017-11-12 17:29] LABS: FOLATE > 24.0 NG/ML (>5.4)
[2017-11-12 17:39] LABS: BASO # 0.1 10^3/uL (0.0-0.2); BASO % 0.8 % (0.0-1.0); EOS # 0.2 10^3/uL (0.0-0.50); EOS % 1.8 % (0.0-3.0); HEMATOCRIT 36.6 % (36.0-47.0); HEMOGLOBIN 11.8 g/dl (12.0-15.5); IMMATURE GRANULOCYTE % 0.5 % (0-3.0); LYMPH # 2.2 10^3/uL (1.5-4.5); LYMPH % 25.7 % (24.0-44.0); MEAN CORPUSCULAR HEMOGLOBIN 28.2 pg (27.0-33.0); MEAN CORPUSCULAR HGB CONC 32.2 g/dl (32.0-36.5); MEAN CORPUSCULAR VOLUME 87.4 fl (80.0-96.0); MONO # 0.5 10^3/uL (0.0-0.8); MONO % 5.2 % (0.0-5.0); NEUTROPHILS # 5.8 10^3/uL (1.8-7.7); PLATELET COUNT, AUTOMATED 324 10^3/uL (150-450); RED BLOOD COUNT 4.19 10^6/uL (4.00-5.40); RED CELL DISTRIBUTION WIDTH 15.1 % (11.5-14.5); WHITE BLOOD COUNT 8.7 10^3/uL (4.0-10.0)
== END ==
LOC: M SFHCCLAY 11:15
DX: R73.01 Impaired fasting glucose (principal); E78.5 Hyperlipidemia, unspecified; E03.9 Hypothyroidism, unspecified; B39.0 Acute pulmonary histoplasmosis capsulati; N39.0 Urinary tract infection, site not specified; Z98.890 Other specified postprocedural states
CPT/HCPCS: 82746

== ENCOUNTER → 2017-11-30 | Outpatient (CLI) | payer MEDICARE, MEDICAID | LOC: M PAIN 10:00 | DX: M96.1 Postlaminectomy syndrome, not elsewhere classified (principal); M54.2 Cervicalgia; M47.22 Other spondylosis with radiculopathy, cervical region; G89.29 Other chronic pain; M79.7 Fibromyalgia; K21.9 Gastro-esophageal reflux disease without esophagitis; E03.9 Hypothyroidism, unspecified; M19.90 Unspecified osteoarthritis, unspecified site; G47.00 Insomnia, unspecified; E55.9 Vitamin D deficiency, unspecified; E66.01 Morbid (severe) obesity due to excess calories; Z68.39 Body mass index [BMI] 39.0-39.9, adult; G47.33 Obstructive sleep apnea (adult) (pediatric); J44.9 Chronic obstructive pulmonary disease, unspecified; Z79.899 Other long term (current) drug therapy; Z88.2 Allergy status to sulfonamides; Z88.8 Allergy status to other drugs, medicaments and biological substances; Z86.711 Personal history of pulmonary embolism; Z86.69 Personal history of other diseases of the nervous system and sense organs | CPT/HCPCS: G0463 ==

== ENCOUNTER → 2018-01-06 | Outpatient (CLI) | payer MEDICARE, MEDICAID ==
[~2018-01-06] MED LIST changes: -/CELE20CA PO; -/DULO30CA OR; -/MAGN64TA PO; -/SUCR1TA OR; -ADVIL PO; -ALBU20IN INH; -ALEV1TAB PO; -ALEV220C2 PO; -AMBI10TA OR; -ARGININE PO; -BISA5TAB7 PO; +BUPIVACAINE HCL 0.25% 30 ML VIAL As Ordered; -BUTR5DIS2 TD; -CELE100C OR; -CLON-412 PO; -CO Q30CA4 PO; -COLA100C5 PO; -DEPA250T2 PO; -DOCU10CA PO; -DOCU10ELUD PO; -EMLA2.5C EX; -FISH500C PO; -GABA-283 PO; -GARC500T PO; -IRON325T3 PO; +ISOVUE-M 300 61% 15ML VIAL (Q9967) As Ordered; -LEVO25TA4 PO; -LIDO1OIN2 TOP; +LIDOCAINE 1% SDV INJ 30 ML VIAL As Ordered; -MAGN250T PO; +MIDAZOLAM INJ 2 MG/2 ML VIAL (J2250) As Ordered; -MORP-39 PO; -MULTTAB4 PO; -NATU400T PO; -NEUR400C OR; -PANT40TA2 PO; -PENI50TA PO; -PERC5TAB8 PO; -PRED5TAB OR; -PRED5TAB PO; -PRIL40CA OR; -PROBCAP4 PO; -SKINNY FIBER PO; -SUCR1SUS PO; -TRAM50TA2 OR; -TRAM50TA2 PO; -TRAZ100T2 PO; -VENTAER INH; -VITA400C35 PO; -VITA500T53 PO; -VITAMIN D50000 UNT OR; -[UNRECOGNIZED DRUG - CODE] PO; -[UNRECOGNIZED DRUG - OTHER] PO; -[UNRECOGNIZED DRUG - OTHER] PO; +fentaNYL 100 MCG/2 ML INJECTION (J3010) As Ordered; +methylPREDNISolone SUSP 40 MG/ML (DEPO-medrol) VIAL (J1030) As Ordered
== END ==
LOC: M PAIN 14:00
DX: G89.29 Other chronic pain (principal); M47.812 Spondylosis without myelopathy or radiculopathy, cervical region; M79.7 Fibromyalgia; G47.30 Sleep apnea, unspecified; E55.9 Vitamin D deficiency, unspecified; E66.9 Obesity, unspecified; J44.9 Chronic obstructive pulmonary disease, unspecified; R42 Dizziness and giddiness; K25.9 Gastric ulcer, unspecified as acute or chronic, without hemorrhage or perforation; Z98.84 Bariatric surgery status; Z88.2 Allergy status to sulfonamides; Z88.1 Allergy status to other antibiotic agents; Z88.8 Allergy status to other drugs, medicaments and biological substances; Z79.891 Long term (current) use of opiate analgesic; Z79.899 Other long term (current) drug therapy; Z98.1 Arthrodesis status
CPT/HCPCS: J1030

== ENCOUNTER → 2018-01-11 | Outpatient (REF) | payer MEDICARE, MEDICAID ==
[2018-01-11 11:36] LABS: BASO # 0.1 10^3/uL (0.0-0.2); BASO % 0.7 % (0.0-1.0); EOS # 0.1 10^3/uL (0.0-0.50); EOS % 0.9 % (0.0-3.0); HEMATOCRIT 38.1 % (36.0-47.0); HEMOGLOBIN 12.4 g/dl (12.0-15.5); IMMATURE GRANULOCYTE % 0.5 % (0-3.0); LYMPH # 2.1 10^3/uL (1.5-4.5); LYMPH % 24.9 % (24.0-44.0); MEAN CORPUSCULAR HEMOGLOBIN 29.7 pg (27.0-33.0); MEAN CORPUSCULAR HGB CONC 32.5 g/dl (32.0-36.5); MEAN CORPUSCULAR VOLUME 91.4 fl (80.0-96.0); MONO # 0.6 10^3/uL (0.0-0.8); MONO % 7.1 % (0.0-5.0); NEUTROPHILS # 5.7 10^3/uL (1.8-7.7); NEUTROPHILS % 65.9 % (36.0-66.0); PLATELET COUNT, AUTOMATED 282 10^3/uL (150-450); RED BLOOD COUNT 4.17 10^6/uL (4.00-5.40); RED CELL DISTRIBUTION WIDTH 14.5 % (11.5-14.5); WHITE BLOOD COUNT 8.6 10^3/uL (4.0-10.0)
[2018-01-11 11:59] LABS: AST/SGOT 14 U/L (7-37)
[2018-01-11 11:59] LABS: ALT/SGPT 22 U/L (12-78)
== END ==
LOC: M LABDRAWC 11:23
DX: Z79.899 Other long term (current) drug therapy (principal)
CPT/HCPCS: 84460

== ENCOUNTER → 2018-02-09 | Outpatient (REF) | payer MEDICARE, MEDICAID | LOC: M SFHCCLAY 15:45 | DX: L30.9 Dermatitis, unspecified (principal); Z53.8 Procedure and treatment not carried out for other reasons ==

== ENCOUNTER → 2018-02-09 | Outpatient (REF) | payer MEDICARE, MEDICAID | LOC: M SFHCCLAY 02-10 11:53 | DX: L30.9 Dermatitis, unspecified (principal) | CPT/HCPCS: 87186 ==

== ENCOUNTER → 2018-03-07 | Outpatient (CLI) | payer MEDICARE, MEDICAID | LOC: M PAIN 13:30 | DX: M96.1 Postlaminectomy syndrome, not elsewhere classified (principal); M54.2 Cervicalgia; M47.22 Other spondylosis with radiculopathy, cervical region; M79.7 Fibromyalgia; K21.9 Gastro-esophageal reflux disease without esophagitis; E03.9 Hypothyroidism, unspecified; G47.00 Insomnia, unspecified; E55.9 Vitamin D deficiency, unspecified; E66.9 Obesity, unspecified; G47.30 Sleep apnea, unspecified; J44.9 Chronic obstructive pulmonary disease, unspecified; R42 Dizziness and giddiness; K25.9 Gastric ulcer, unspecified as acute or chronic, without hemorrhage or perforation; Z86.711 Personal history of pulmonary embolism; Z68.36 Body mass index [BMI] 36.0-36.9, adult; Z88.2 Allergy status to sulfonamides; Z88.1 Allergy status to other antibiotic agents; Z88.8 Allergy status to other drugs, medicaments and biological substances; Z79.891 Long term (current) use of opiate analgesic; Z79.899 Other long term (current) drug therapy | CPT/HCPCS: G0463 ==

== ENCOUNTER → 2018-04-05 | Outpatient (CLI) | payer MEDICARE, MEDICAID | LOC: M PAIN 15:00 | DX: M96.1 Postlaminectomy syndrome, not elsewhere classified (principal); M54.2 Cervicalgia; M47.22 Other spondylosis with radiculopathy, cervical region; G89.29 Other chronic pain; M06.9 Rheumatoid arthritis, unspecified; M79.7 Fibromyalgia; K21.9 Gastro-esophageal reflux disease without esophagitis; E03.9 Hypothyroidism, unspecified; M17.10 Unilateral primary osteoarthritis, unspecified knee; E55.9 Vitamin D deficiency, unspecified; G47.30 Sleep apnea, unspecified; J44.9 Chronic obstructive pulmonary disease, unspecified; E66.01 Morbid (severe) obesity due to excess calories; Z68.37 Body mass index [BMI] 37.0-37.9, adult; Z79.899 Other long term (current) drug therapy; Z88.2 Allergy status to sulfonamides; Z88.8 Allergy status to other drugs, medicaments and biological substances; Z98.84 Bariatric surgery status; Z86.79 Personal history of other diseases of the circulatory system; Z87.11 Personal history of peptic ulcer disease; Z86.711 Personal history of pulmonary embolism; Z86.69 Personal history of other diseases of the nervous system and sense organs | CPT/HCPCS: G0463 ==

== ENCOUNTER → 2018-11-09 | Outpatient (REF) | payer MEDICARE, MEDICAID ==
[~2018-11-09] MED LIST changes: +ADVIL PO; +ALBU20IN INH; +ALEV1TAB PO; +ALEV220C2 PO; +AMBI10TA OR; +ARGININE PO; +BISA5TAB7 PO; -BUPIVACAINE HCL 0.25% 30 ML VIAL As Ordered; +BUTR5DIS2 TD; +CELE100C OR; +CELE1CAP4 PO; +CLON-412 PO; +CO Q30CA4 PO; +COLA100C5 PO; +CYMB1CAP5 OR; +DEPA250T2 PO; +DOCU10CA PO; +DOCU5LIQ PO; +EMLA2.5C EX; +FISH500C PO; +GABA-845 PO; +GARC500T PO; +IRON325T3 PO; -ISOVUE-M 300 61% 15ML VIAL (Q9967) As Ordered; +LEVO25TA4 PO; +LIDO1OIN2 TOP; -LIDOCAINE 1% SDV INJ 30 ML VIAL As Ordered; +MAG-TAB PO; +MAGN250T PO; -MIDAZOLAM INJ 2 MG/2 ML VIAL (J2250) As Ordered; +MORP-39 PO; +MULTTAB4 PO; +NATU400T PO; +NEUR400C OR; +PANT40TA3 PO; +PENI500T PO; +PERC5TAB8 PO; +PRED5TAB OR; +PRED5TAB PO; +PRIL40CA OR; +PROBCAP4 PO; +SKINNY FIBER PO; +SUCR1SUS PO; +SUCR1TAB56 OR; +TRAM50TA2 OR; +TRAM50TA2 PO; +TRAZ100T2 PO; +VENTAER INH; +VITA400C35 PO; +VITA500T53 PO; +VITAMIN D50000 UNT OR; +[UNRECOGNIZED DRUG - CODE] PO; +[UNRECOGNIZED DRUG - OTHER] PO; +[UNRECOGNIZED DRUG - OTHER] PO; -fentaNYL 100 MCG/2 ML INJECTION (J3010) As Ordered; -methylPREDNISolone SUSP 40 MG/ML (DEPO-medrol) VIAL (J1030) As Ordered
[2018-11-09 16:43] LABS: BASO # 0.1 10^3/uL (0.0-0.2); BASO % 0.9 % (0.0-1.0); EOS # 0.1 10^3/uL (0.0-0.50); EOS % 1.3 % (0.0-3.0); HEMATOCRIT 39.5 % (36.0-47.0); HEMOGLOBIN 12.6 g/dl (12.0-15.5); LYMPH # 2.1 10^3/uL (1.5-4.5); LYMPH % 23.9 % (24.0-44.0); MEAN CORPUSCULAR HEMOGLOBIN 28.8 pg (27.0-33.0); MEAN CORPUSCULAR HGB CONC 31.9 g/dl (32.0-36.5); MEAN CORPUSCULAR VOLUME 90.2 fl (80.0-96.0); MONO # 0.8 10^3/uL (0.0-0.8); MONO % 9.4 % (0.0-5.0); NEUTROPHILS # 5.6 10^3/uL (1.8-7.7); NEUTROPHILS % 64.3 % (36.0-66.0); PLATELET COUNT, AUTOMATED 289 10^3/uL (150-450); RED BLOOD COUNT 4.38 10^6/uL (4.00-5.40); WHITE BLOOD COUNT 8.7 10^3/uL (4.0-10.0)
[2018-11-09 17:10] LABS: ALT/SGPT 22 U/L (12-78); BILIRUBIN,TOTAL 0.8 MG/DL (0.2-1.0); BLOOD UREA NITROGEN 30 MG/DL (7-18); CALCIUM LEVEL 9.1 MG/DL (8.8-10.2); CARBON DIOXIDE LEVEL 28 MEQ/L (21-32); CHLORIDE LEVEL 102 MEQ/L (98-107); CHOLESTEROL LEVEL 236 MG/DL (<200); CHOLESTEROL RISK RATIO 3.371 (<5); CREATININE FOR GFR 1.17 MG/DL (0.55-1.30); FERRITIN 69 NG/ML (8-252); FOLATE > 24.0 NG/ML (>5.4); GLOMERULAR FILTRATION RATE 49.7 (>45); GLUCOSE, FASTING 103 MG/DL (70-100); HDL CHOLESTEROL 70 MG/DL (>40); IRON (FE) 46 UG/DL (50-170); LDL CHOLESTEROL 143 MG/DL (<100); NON-HDL-C 166 MG/DL; PERCENT SATURATION 11.1 % (13.2-45.0); POTASSIUM SERUM 4.7 MEQ/L (3.5-5.1); SODIUM LEVEL 138 MEQ/L (136-145); TOTAL 25(OH) VITAMIN D 27.2 NG/ML (30.0-100.0); TOTAL IRON BINDING CAPACITY 414 UG/DL (250-450); TOTAL PROTEIN 7.5 GM/DL (6.4-8.2); TRIGLYCERIDES LEVEL 114 MG/DL (<150); VITAMIN B12 LEVEL 343 PG/ML (247-911)
== END ==
LOC: M SFHCCLAY 11:02
PROVIDERS: ATTEND Nurse Practitioner Family
DX: Z98.890 Other specified postprocedural states (principal); E78.5 Hyperlipidemia, unspecified; E03.9 Hypothyroidism, unspecified; Z79.51 Long term (current) use of inhaled steroids

== ENCOUNTER → 2018-12-15 | Outpatient (CLI) | payer MEDICARE, MEDICAID ==
--- NOTE | 2019-01-03 02:10 | ECWPNPC ---
PATIENT NAME: DARLENE HICKEY : 1955 GENDER: FEMALE VISIT DATE: 12/15/2018 DISCHARGE DATE: 12/15/18 1151 VISIT LOCKED DATE TIME: PHYSICIAN: AMY SHAH RESOURCE: AMY SHAH REASON FOR APPOINTMENT 1. NECK PAIN HISTORY OF PRESENT ILLNESS HISTORY OF PRESENT ILLNESS: HERE FOR F/U AND MANAGEMENT OF CHRONIC NECK PAIN.PATIENT HAS RHEUMATOID ARTHRITIS.FOLLOWS [facility] NEUROLOGY FOR HEADACHES.FINDS CURRENT MEDICATION HELPFUL AT REDUCING PAIN AND KEEPING HER FUNCTIONAL.DENIES ADVERS EFFECTS WITH MEDICATION.REPORTING PAIN VAS 6/10.HAS HAD 37# WEIGHT LOSS OVER THE PAST 6 MONTHS.SHE HAS BEEN ACTIVELY BEEN DIETING AND COOL SCULPTING.RECENTLY STARTED ON NEW ANTI RHEUMATOID MEDICATION.FEELS SHE IS HAVING LESS KNEE PAIN. PAIN THE PATIENT DESCRIBES THE PAIN... THE PATIENT DESCRIBES THE PAIN... THE PATIENT DESCRIBES THE PAIN... THE PATIENT DESCRIBES THE PAIN... THE PATIENT DESCRIBES THE PAIN... THE PATIENT DESCRIBES THE PAIN... THE PATIENT DESCRIBES THE PAIN... THE PATIENT DESCRIBES THE PAIN... THE PATIENT DESCRIBES THE PAIN... FALL RISK SCREENING: SCREENING :NO FALLS REPORTED IN THE LAST YEAR CURRENT MEDICATIONS TAKING ZOLPIDEM TARTRATE 10 MG TABLET 1 TABLET AT BEDTIME NEEDED ORALLY ONCE A DAY TAKING GABAPENTIN 600 MG TABLET 1 CAPSULE ORALLY TID TAKING OXYCODONE-ACETAMINOPHEN 10-325 MG TABLET 1 TABLET NEEDED ORALLY FOR PAIN Q4-6H PRN MDD5 TAKING DICLO GEL 1 % KIT DIRECTED TRANSDERMAL TAKING LEVOTHYROXINE SODIUM 25 MCG TABLET 1 TABLET ON AN EMPTY STOMACH IN THE MORNING ORALLY ONCE A DAY TAKING SLOW-MAG 71.5-119 MG TABLET DELAYED RELEASE TAKE 3 TABLETS BY MOUTH ONCE DAILY. TAKING PROTONIX 40 MG TABLET DELAYED RELEASE 1 TABLET ORALLY ONCE A DAY TAKING HYDROCHLOROTHIAZIDE 25 MG TABLET 1 TABLET IN THE MORNING ORALLY ONCE A DAY, NOTES: NEEDED TAKING HYDROXYCHLOROQUINE SULFATE 200 MG TABLET 1 TABLET WITH FOOD OR MILK ORALLY ONCE A DAY TAKING DERMOPLAST 20-0.5 % AEROSOL 1 APPLICATION TO AFFECTED AREA NEEDED EXTERNALLY THREE TIMES A DAY TAKING NYSTATIN [id number] UNIT/GM POWDER 1 APPLICATION TO AFFECTED AREA EXTERNALLY TWICE A DAY TAKING VENTOLIN HFA 108 (90 BASE) MCG/ACT AEROSOL SOLUTION 2 PUFFS INHALATION QID PRN TAKING CARAFATE 1 GM TABLET 1 TABLET ORALLY THREE X DAILY TAKING MULTIVITAMINS TABLET 1 TABLET ORALLY ONCE A DAY TAKING FOLIC ACID 1 MG TABLET 1 TABLET ORALLY ONCE A DAY TAKING ROPINIROLE HCL 0.25 MG TABLET DIRECTED ORALLY 1 TAB 2HR PRE HS TAKING CYMBALTA 60 MG CAPSULE DELAYED RELEASE PARTICLES 1 CAPSULE ORALLY ONCE A DAY TAKING COLACE 100 MG CAPSULE 1 CAPSULE NEEDED ORALLY TWICE A DAY TAKING DRISDOL 95605 UNIT CAPSULE 1 CAPSULE ORALLY TWICE A WEEK TAKING DICLOFENAC SODIUM 75 MG TABLET DELAYED RELEASE 1 TABLET WITH FOOD OR MILK ORALLY TWICE A DAY TAKING TRAMADOL HCL 50 MG TABLET 1 TABLET NEEDED ORALLY Q6-8H PRN PAIN MDD2 TAKING LEFLUNOMIDE 20 MG TABLET 1 TABLET ORALLY ONCE A DAY, NOTES: DR. 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 POS COPD HISTORY OF PULMONARY EMBOLISM VERTIGO GASTRIC ULCER ANEURESYM BRAIN STEM RHEUMATOID ARTHRITIS ALLERGIES CIPRO: THROAT SWELLING - ALLERGY LYRICA: MEMORY LOSS - SIDE EFFECTS ROBAXIN: RASH - ALLERGY SULFASALAZINE: HIVES - ALLERGY SULFA (FOR ALLERGY USE ONLY): HIVES - SIDE EFFECTS SURGICAL HISTORY EYE OPERATION - LEFT "LAZY EYE" 1964 C - SECTION 1979 C- SECTION 1988 BREAST REDUCTION 1998 GASTRIC BYPASS 2005 GALLBALDDER 2008 CYST REMOVAL (BENIGN) ARM AND BACK 2009 LEFT KNEE SURGERY 2009 RIGHT KNEE SURGERY 2010 HERNIA SURGERY 2009 APPENDECTOMY WITH COMPLICATIONS (COLOSTOMY BAG - REMOVED 10/07) 2010 REMOVED SEVERAL CYSTS FROM COLON AND BREASTS (ABSCESSES) 2010 HERNIAS REPAIRED X 2 09/2011 NECK FUSION C5-6-7-8 2010 UPPER ENDOSCOPY 10/2011 COLONOSCOPY 09/06 EPIDURAL 02/04/15 INCISIONAL HERNIA REPAIR 09/2016 CHANDU BLOCK AT [facility] 2018 FAMILY HISTORY FATHER: , DIAGNOSED WITH DIABETES, CANCER MOTHER: , DIABETES, OTHER 3 BROTHER(S) . 1 SON(S) , 2 DAUGHTER(S) - HEALTHY. DAUGHTER (HAYDE) WITH RA OR MS. SOCIAL HISTORY GENERAL: TOBACCO USE ARE YOU A:NONSMOKER NEVER A SMOKER HIV / HEP-C SCREENING HIV TEST OFFERED TO PATIENT:YES DATE OFFERED:02/02/2018 TEST ACCEPTED:NO HEP-C TEST OFFERED TO PATIENT:YES DATE OFFERED:02/02/2018 REASON:PATIENT DECLINED TEST ACCEPTED:NO REASON:PATIENT DECLINED BROCHURE PROVIDED TO PATIENTNO LANGUAGE LANGUAGES SPOKEN:HUNGARIAN DOMESTIC VIOLENCE DO YOU FEEL SAFE IN YOUR ENVIRONMENT?YES NEW PATIENT PAIN DIARY TODAY'S VISIT NOTES, FROM 0-10, WHAT LEVEL IS YOUR PAIN TODAY? 0. RECREATIONAL DRUG USE DRUG USE?NO LEARNING BARRIERS / SPECIAL NEEDS BARRIERS TO LEARNING?NO HEARING IMPAIRED?NO VISION IMPAIRED?YES COGNITIVELY IMPAIRED?NO :CORRECTIVE LENSES READINESS TO LEARN?YES LEARNING PREFERENCES?NO LEARNING CAPABILITIES PRESENT?YES EMOTIONAL BARRIERS?NO SPECIAL DEVICES?NO CERTIFIED RESPIRATORY THERAPIST NEEDED?NO PAIN CLINIC PFS, CLERGY, PUBLIC HEALTH REFERRALS PFS REFERRAL NEEDED?NO CLERGY REFERRAL NEEDED?NO PUBLIC HEALTH REFERRAL NEEDED?NO WAS THE PROVIDER NOTIFIED OF ANY PERTINENT INFO?NO HAS THE PATIENT BEEN EDUCATED REGARDING HIS/HER PLAN OF CARE?YES HAS THE PATIENT BEEN EDUCATED REGARDING PAIN, THE RISK FOR PAIN, THE IMPORTANCE OF EFFECTIVE PAIN MANAGEMENT, AND THE PAIN ASSESSMENT PROCESS?YES LATEX QUESTIONNAIRE LATEX ALLERGY : HAVE YOU EVER DEVELOPED ANY TYPE OF REACTION AFTER HANDLING LATEX PRODUCTS SUCH RUBBER GLOVES, CONDOMS, DIAPHRAGMS, BALLOONS, SOCKS, OR UNDERWEAR?NO LATEX ALLERGY : HAVE YOU EVER DEVELOPED ANY TYPE OF REACTION DURING OR AFTER DENTAL APPOINTMENT, VAGINAL/RECTAL EXAMINATION, SURGICAL PROCEDURE, OR ANY OTHER EXPOSURE?NO DATE ASKED : 11/17/2018 LATEX RISK : HAVE YOU EVER HAD ANY DIFFICULTY BREATHING OR HIVES AFTER EATING OR HANDLING ANY FRUITS, OR VEGETABLES; SUCH KIWI, BANANAS, STONE FRUITS, OR CHESTNUTSNO LATEX RISK : DO YOU HAVE A PREVIOUS PERSONAL HISTORY OF MORE THAN NINE SURGERIES, SPINA BIFIDA, OR REPEATED CATHERTIZATIONS? NO LATEX RISK : ARE YOU FREQUENTLY EXPOSED TO LATEX PRODUCTS IN YOUR OCCUPATION?NO CAFFEINE CAFFEINE USE?YES HOW OFTEN AND HOW MUCH? DAILY ADVANCE DIRECTIVE ADVANCE DIRECTIVE DISCUSSED WITH PATIENT:YES HCP - HAYDE HICKEY (DAUGHTER) [place] TEM[place] NO CHURCH BELIEFS THAT WOULD IMPACT HEALTH CARE. ALCOHOL SCREENING DID YOU HAVE A DRINK CONTAINING ALCOHOL IN THE PAST YEAR?NO POINTS0 INTERPRETATIONNEGATIVE SEXUAL HX HAD SEX IN THE LAST 12 MONTHS (VAGINAL, ORAL, OR ANAL)?NO HAVE YOU EVER HAD AN STD?NO REVIEWED WITH PATIENT 04/05/18 1525 JSREVIEWED WITH PATIENT 12/15/18 1125 LAS. HOSPITALIZATION/MAJOR DIAGNOSTIC PROCEDURE COPD FLARE UP X2 05/11 SURGERY SURGERY 10/12 PNEUMONIA/BRONCHITIS CHEST PAIN ([facility]) SEPTEMBER 2017 PNEUMONIA APRIL 2018 DOUBLE PNEUMONIA MAY 2018 REVIEW OF SYSTEMS REVIEWED BY: PROVIDER: AMY BENTON . CONSTITUTIONAL: ANY CHANGE IN YOUR MEDICAL CONDITION? NO . CHILLS NO . FEVER NO . INFECTION: DO YOU HAVE NEW INFECTIONS? YES- BRONCHOTIS NOVEMBER 2018- NO MEDS . DO YOU HAVE HISTORY OF MRSA? NO . MUSCULOSKELETAL: ANY NEW PATTERNS OF PAIN OR NUMBNESS? NO . GASTROENTEROLOGY: ANY NEW CHANGE IN BOWEL CONTROL? NO . GENITOURINARY: ANY NEW CHANGE IN BLADDER CONTROL? NO . IS THERE A CHANCE YOU COULD BE ? NO . HEMATOLOGY/LYMPH: DO YOU TAKE ANY BLOOD THINNERS? (FOR EXAMPLE- COUMADIN, PLAVIX, AGGRENOX, PLATEL, PRADAXA, OR XARELTO) NO . WHEN WAS YOUR LAST DOSE? DATE: TIME: . NEUROLOGY: HAVE YOU FALLEN IN THE PAST 12 MONTHS? NO . ANY NEW EXTREMITY NUMBNESS OR WEAKNESS? NO . CARDIOLOGY: DO YOU HAVE A PACEMAKER OR DEFIBRILLATOR? NO . RESPIRATORY: HAVE YOU BEEN SICK IN THE PAST WEEK? NO . FEVER NO . FLU LIKE SYMPTOMS? NO . COUGH NO . INTEGUMENTARY: DO YOU HAVE ANY RASHES OR OPEN SORES? NO . ALLERGIC/IMMUNO: ARE YOU ALLERGIC TO IV DYE? NO . ANY NEW ALLERGIES? NO . PSYCHIATRIC: DO YOU HAVE THOUGHTS OF HURTING YOURSELF OR SOMEONE ELSE? NO . ARE YOU ABUSED, NEGLECTED, OR IN AN UNSAFE ENVIRONMENT? NO . ENDOCRINOLOGY: ARE YOU DIABETIC? NO . OTHER: DO YOU NEED ANY PRESCRIPTIONS? NO . IF YES, PLEASE LIST: ____ . ANY NEW PROBLEMS WITH YOUR MEDICATIONS? NO . WHEN DID YOU LAST EAT? ____ . WHEN DID YOU LAST DRINK? ____ . WHAT DID YOU LAST DRINK? ____ . NAME OF PERSON DRIVING YOU HOME? ____ . DO YOU HAVE ANY OTHER QUESTIONS OR CONCERNS NO . VITAL SIGNS WT 187.8 LBS, HT 62.5 IN, BMI 33.80 INDEX, BP 143/75 MM HG, HR 78 /MIN, RR 18 /MIN, TEMP 97.3 F, OXYGEN SAT % 96%, NA INITIALS AW 1054, REVIEWED BY: SIRENA. EXAMINATION GENERAL EXAMINATION: LUNGS: LUNG SOUNDS ARE CLEAR. HEART: HEART RATE REGULAR. MUSCULOSKELETAL:*, MUSCLE STRENGTH TESTING 5/5 BILATERAL UPPER EXTREMITIES , PALPATION: POSITIVE FOR PAIN OVER CERVICAL SPINE. POSITIVE FOR PAIN OVER CERVICAL PARASPINALS.SPECIFIC TRIGGER POINTS ELICITED L>R.PAIN IN THIS AREA AGGREVATED BY ROJM NECK.. EXTREMITIES: 1 " LEG LENGTH DISCREPANCY W RIGHT LEG SHORTER THAN LEFT. DIAGNOSTIC: . ASSESSMENTS POST LAMINECTOMY SYNDROME - M96.1 (PRIMARY) LEG LENGTH DISCREPANCY - M21.70 TREATMENT POST LAMINECTOMY SYNDROME REFILL OXYCODONE-ACETAMINOPHEN TABLET, 10-325 MG, 1 TABLET NEEDED, ORALLY FOR PAIN, Q4-6H PRN MDD5, 30 DAYS, 150, REFILLS 0 NOTES: ISTOP REGISTRY REVIEWED AND DEMONSTRATES COMPLLIANCE. BRINGS IN MEDICATIONS WHICH IS APPROPRIATE FOR WHAT WAS DISPENSED. RECENT URINE TOXICOLOGY REVIEWED. NO UNAUTHORIZED MEDICATIONS. NO ILLICIT SUBSTANCES AND PRESCRIBED MEDICATIONS WERE PRESENT. URINE TOX TODAY URINE TOX TODAY, RISKS AND BENEFITS OF NARCOTIC/OPIOD MEDICATIONS WERE REVIEWED WITH PATIENT - THIS INCLUDES BUT IS NOT LIMITED TO RISK OF DEPENDANCE/DEVELOPMENT OF ADDICTION, MOOD DISTURBANCE AND DEPRESSION, OSTEOPOROSIS, HORMONAL AND LABIDAL CHANGES, RESPIRATORY DEPRESSION AND . PATIENT IS ADVISED NOT TO DRIVE OR DRINK ALCOHOL WHILE ON THESE MEDICATIONS. PROCEDURE CODES FA211 ESTABILISHED PATIENT [facility] CHARGE DISPOSITION & COMMUNICATION FOLLOW UP 2 MONTHS ELECTRONICALLY SIGNED BY CHETAN HOWELL ON 01/02/2019 AT 03:12 PM EDT DISCLAIMER : THIS IS A VISIT SUMMARY EXTRACTED FROM THE [employer] CHART. IT IS NOT A COPY OF THE [employer] PROGRESS NOTE. MTDD
== END ==
LOC: M PAIN 10:30
PROVIDERS: ATTEND Nurse Practitioner Family
DX: M96.1 Postlaminectomy syndrome, not elsewhere classified (principal); M21.70 Unequal limb length (acquired), unspecified site; M54.2 Cervicalgia; M06.9 Rheumatoid arthritis, unspecified; M79.7 Fibromyalgia; K21.9 Gastro-esophageal reflux disease without esophagitis; E03.9 Hypothyroidism, unspecified; G47.00 Insomnia, unspecified; E55.9 Vitamin D deficiency, unspecified; E66.9 Obesity, unspecified; G47.30 Sleep apnea, unspecified; J44.9 Chronic obstructive pulmonary disease, unspecified; Z86.711 Personal history of pulmonary embolism; R42 Dizziness and giddiness; Z98.84 Bariatric surgery status; Z98.1 Arthrodesis status; Z79.891 Long term (current) use of opiate analgesic; Z90.49 Acquired absence of other specified parts of digestive tract; Z88.1 Allergy status to other antibiotic agents; Z88.2 Allergy status to sulfonamides; Z88.8 Allergy status to other drugs, medicaments and biological substances

== ENCOUNTER → 2019-01-03 | Outpatient (REF) | payer MEDICARE, MEDICAID ==
[2019-01-03 19:03] LABS: ALT/SGPT 19 U/L (12-78); CREATININE FOR GFR 0.89 MG/DL (0.55-1.30); GLOMERULAR FILTRATION RATE > 60.0 (>45)
[2019-01-03 19:22] LABS: BASO % 0.7 % (0.0-1.0); EOS # 0.2 10^3/uL (0.0-0.50); EOS % 2.5 % (0.0-3.0); HEMATOCRIT 36.8 % (36.0-47.0); HEMOGLOBIN 11.2 g/dl (12.0-15.5); LYMPH # 1.7 10^3/uL (1.5-4.5); LYMPH % 27.9 % (24.0-44.0); MEAN CORPUSCULAR HEMOGLOBIN 28.9 pg (27.0-33.0); MEAN CORPUSCULAR HGB CONC 30.4 g/dl (32.0-36.5); MEAN CORPUSCULAR VOLUME 94.8 fl (80.0-96.0); MONO # 0.5 10^3/uL (0.0-0.8); MONO % 8.1 % (0.0-5.0); NEUTROPHILS # 3.7 10^3/uL (1.8-7.7); NEUTROPHILS % 60.5 % (36.0-66.0); PLATELET COUNT, AUTOMATED 236 10^3/uL (150-450); RED BLOOD COUNT 3.88 10^6/uL (4.00-5.40)
== END ==
LOC: M LABDRAWC 17:32
PROVIDERS: ATTEND Internal Medicine Rheumatology
DX: Z79.1 Long term (current) use of non-steroidal anti-inflammatories (NSAID) (principal); Z79.899 Other long term (current) drug therapy

== ENCOUNTER → 2019-02-01 | Outpatient (REF) | payer MEDICARE, MEDICAID ==
[2019-02-02 13:33] LABS: BASO # 0.1 10^3/uL (0.0-0.2); BASO % 0.9 % (0.0-1.0); EOS # 0.1 10^3/uL (0.0-0.50); EOS % 1.7 % (0.0-3.0); HEMATOCRIT 36.5 % (36.0-47.0); HEMOGLOBIN 11.4 g/dl (12.0-15.5); LYMPH # 1.6 10^3/uL (1.5-4.5); LYMPH % 28.9 % (24.0-44.0); MEAN CORPUSCULAR HEMOGLOBIN 28.1 pg (27.0-33.0); MEAN CORPUSCULAR HGB CONC 31.2 g/dl (32.0-36.5); MEAN CORPUSCULAR VOLUME 89.9 fl (80.0-96.0); MONO # 0.4 10^3/uL (0.0-0.8); MONO % 7.6 % (0.0-5.0); NEUTROPHILS # 3.2 10^3/uL (1.8-7.7); NEUTROPHILS % 60.5 % (36.0-66.0); PLATELET COUNT, AUTOMATED 208 10^3/uL (150-450); RED BLOOD COUNT 4.06 10^6/uL (4.00-5.40); WHITE BLOOD COUNT 5.4 10^3/uL (4.0-10.0)
[2019-02-02 13:38] LABS: ALT/SGPT 21 U/L (12-78); CREATININE FOR GFR 0.88 MG/DL (0.55-1.30); GLOMERULAR FILTRATION RATE > 60.0 (>45)
== END ==
LOC: M LABDRAWC 11:51
PROVIDERS: ATTEND Internal Medicine Rheumatology
DX: Z79.899 Other long term (current) drug therapy (principal)

== ENCOUNTER → 2019-03-06 | Outpatient (CLI) | payer MEDICARE, MEDICAID ==
--- NOTE | 2019-03-21 02:12 | ECWPNPC ---
PATIENT NAME: DARLENE HICKEY : 1955 GENDER: FEMALE VISIT DATE: 03/06/2019 DISCHARGE DATE: 03/06/19 1413 VISIT LOCKED DATE TIME: PHYSICIAN: AMY SHAH RESOURCE: AMY SHAH REASON FOR APPOINTMENT 1. NECK PAIN HISTORY OF PRESENT ILLNESS HISTORY OF PRESENT ILLNESS: HERE FOR F/U AND MANAGEMENT OF CHRONIC NECK PAIN.PATIENT HAS RHEUMATOID ARTHRITIS.FOLLOWS [facility] NEUROLOGY FOR HEADACHES.FINDS CURRENT MEDICATION HELPFUL AT REDUCING PAIN AND KEEPING HER FUNCTIONAL.DENIES ADVERS EFFECTS WITH MEDICATION.REPORTING PAIN VAS 2-8/10.CHIEF AREA OF PAIN IS LEFT NECK.PAIN IS AGGREVATED IN THIS AREA WITH LIFTING OR CERTAIN POSITIONS. PAIN THE PATIENT DESCRIBES THE PAIN... THE PATIENT DESCRIBES THE PAIN... THE PATIENT DESCRIBES THE PAIN... THE PATIENT DESCRIBES THE PAIN... THE PATIENT DESCRIBES THE PAIN... THE PATIENT DESCRIBES THE PAIN... THE PATIENT DESCRIBES THE PAIN... THE PATIENT DESCRIBES THE PAIN... THE PATIENT DESCRIBES THE PAIN... THE PATIENT DESCRIBES THE PAIN... THE PATIENT DESCRIBES THE PAIN... FALL RISK SCREENING: SCREENING :NO FALLS REPORTED IN THE LAST YEAR :NO FALLS REPORTED IN THE LAST YEAR SCREENING :NO FALLS REPORTED IN THE LAST YEAR :NO FALLS REPORTED IN THE LAST YEAR CURRENT MEDICATIONS TAKING TRAMADOL HCL 50 MG TABLET 1 TABLET NEEDED ORALLY Q6-8H PRN PAIN MDD2 TAKING OXYCODONE-ACETAMINOPHEN 10-325 MG TABLET 1 TABLET NEEDED ORALLY FOR PAIN Q4-6H PRN MDD5 TAKING LEVOTHYROXINE SODIUM 25 MCG TABLET 1 TABLET ON AN EMPTY STOMACH IN THE MORNING ORALLY ONCE A DAY TAKING DRISDOL 37309 UNIT CAPSULE 1 CAPSULE ORALLY TWICE A WEEK TAKING DICLO GEL 1 % KIT DIRECTED TRANSDERMAL TAKING PROTONIX 40 MG TABLET DELAYED RELEASE 1 TABLET ORALLY ONCE A DAY TAKING HYDROCHLOROTHIAZIDE 25 MG TABLET 1 TABLET IN THE MORNING ORALLY ONCE A DAY, NOTES: NEEDED TAKING HYDROXYCHLOROQUINE SULFATE 200 MG TABLET 1 TABLET WITH FOOD OR MILK ORALLY ONCE A DAY TAKING DERMOPLAST 20-0.5 % AEROSOL 1 APPLICATION TO AFFECTED AREA NEEDED EXTERNALLY THREE TIMES A DAY TAKING NYSTATIN [id number] UNIT/GM POWDER 1 APPLICATION TO AFFECTED AREA EXTERNALLY TWICE A DAY TAKING VENTOLIN HFA 108 (90 BASE) MCG/ACT AEROSOL SOLUTION 2 PUFFS INHALATION QID PRN TAKING CARAFATE 1 GM TABLET 1 TABLET ORALLY THREE X DAILY TAKING MULTIVITAMINS TABLET 1 TABLET ORALLY ONCE A DAY TAKING FOLIC ACID 1 MG TABLET 1 TABLET ORALLY ONCE A DAY TAKING CYMBALTA 60 MG CAPSULE DELAYED RELEASE PARTICLES 1 CAPSULE ORALLY ONCE A DAY TAKING COLACE 100 MG CAPSULE 1 CAPSULE NEEDED ORALLY TWICE A DAY TAKING DRISDOL 22389 UNIT CAPSULE 1 CAPSULE ORALLY TWICE A WEEK TAKING DICLOFENAC SODIUM 75 MG TABLET DELAYED RELEASE 1 TABLET WITH FOOD OR MILK ORALLY TWICE A DAY TAKING LEFLUNOMIDE 20 MG TABLET 1 TABLET ORALLY ONCE A DAY, NOTES: DR. RIVERO/RHEUMATOLOGY TAKING GABAPENTIN 600 MG TABLET 1 CAPSULE ORALLY TID TAKING ROPINIROLE HCL 0.5 MG TABLET 1 TABLET 1 TO 3 HOURS BEFORE BEDTIME ORALLY ONCE A DAY TAKING TRAZODONE HCL 100 MG TABLET 2 TABLET AT BEDTIME ORALLY ONCE A DAY TAKING SLOW-MAG 71.5-119 MG TABLET DELAYED RELEASE TAKE 3 TABLETS BY MOUTH ONCE DAILY. 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 POS COPD HISTORY OF PULMONARY EMBOLISM VERTIGO GASTRIC ULCER ANEURESYM BRAIN STEM RHEUMATOID ARTHRITIS ALLERGIES CIPRO: THROAT SWELLING - ALLERGY LYRICA: MEMORY LOSS - SIDE EFFECTS ROBAXIN: RASH - ALLERGY SULFASALAZINE: HIVES - ALLERGY SULFA (FOR ALLERGY USE ONLY): HIVES - SIDE EFFECTS SURGICAL HISTORY EYE OPERATION - LEFT "LAZY EYE" 1964 C - SECTION 1979 C- SECTION 1988 BREAST REDUCTION 1999 GASTRIC BYPASS 2005 GALLBALDDER 2007 CYST REMOVAL (BENIGN) ARM AND BACK 2008 LEFT KNEE SURGERY 2008 RIGHT KNEE SURGERY 2010 HERNIA SURGERY 2009 APPENDECTOMY WITH COMPLICATIONS (COLOSTOMY BAG - REMOVED 10/07) 2010 REMOVED SEVERAL CYSTS FROM COLON AND BREASTS (ABSCESSES) 2010 HERNIAS REPAIRED X 2 09/2011 NECK FUSION C5-6-7-8 2010 UPPER ENDOSCOPY 10/2011 COLONOSCOPY 09/06 EPIDURAL 02/04/15 INCISIONAL HERNIA REPAIR 09/2016 CHANDU BLOCK AT [facility] 2018 FAMILY HISTORY FATHER: , DIAGNOSED WITH DIABETES, OTHER MALIGNANT NEOPLASM OF UNSPECIFIED SITE MOTHER: , DIABETES, OTHER SPECIFIED CONDITIONS INFLUENCING HEALTH STATUS 3 BROTHER(S) . 1 SON(S) , 2 DAUGHTER(S) - HEALTHY. DAUGHTER (HAYDE) WITH RA OR MS. SOCIAL HISTORY GENERAL: TOBACCO USE ARE YOU A:NONSMOKER NEVER A SMOKER HIV / HEP-C SCREENING HIV TEST OFFERED TO PATIENT:YES DATE OFFERED:02/02/2018 TEST ACCEPTED:NO HEP-C TEST OFFERED TO PATIENT:YES DATE OFFERED:02/02/2018 REASON:PATIENT DECLINED TEST ACCEPTED:NO REASON:PATIENT DECLINED BROCHURE PROVIDED TO PATIENTNO LANGUAGE LANGUAGES SPOKEN:[place]ONG [place]ER DOMESTIC VIOLENCE DO YOU FEEL SAFE IN YOUR ENVIRONMENT?YES NEW PATIENT PAIN DIARY TODAY'S VISIT NOTES, FROM 0-10, WHAT LEVEL IS YOUR PAIN TODAY? 0. RECREATIONAL DRUG USE DRUG USE?NO LEARNING BARRIERS / SPECIAL NEEDS BARRIERS TO LEARNING?NO HEARING IMPAIRED?NO VISION IMPAIRED?YES COGNITIVELY IMPAIRED?NO :CORRECTIVE LENSES READINESS TO LEARN?YES LEARNING PREFERENCES?NO LEARNING CAPABILITIES PRESENT?YES EMOTIONAL BARRIERS?NO SPECIAL DEVICES?NO ASSISTANT CHILD CARE TEACHER NEEDED?NO PAIN CLINIC PFS, CLERGY, PUBLIC HEALTH REFERRALS PFS REFERRAL NEEDED?NO CLERGY REFERRAL NEEDED?NO PUBLIC HEALTH REFERRAL NEEDED?NO WAS THE PROVIDER NOTIFIED OF ANY PERTINENT INFO?NO HAS THE PATIENT BEEN EDUCATED REGARDING HIS/HER PLAN OF CARE?YES HAS THE PATIENT BEEN EDUCATED REGARDING PAIN, THE RISK FOR PAIN, THE IMPORTANCE OF EFFECTIVE PAIN MANAGEMENT, AND THE PAIN ASSESSMENT PROCESS?YES LATEX QUESTIONNAIRE LATEX ALLERGY : HAVE YOU EVER DEVELOPED ANY TYPE OF REACTION AFTER HANDLING LATEX PRODUCTS SUCH RUBBER GLOVES, CONDOMS, DIAPHRAGMS, BALLOONS, SOCKS, OR UNDERWEAR?NO LATEX ALLERGY : HAVE YOU EVER DEVELOPED ANY TYPE OF REACTION DURING OR AFTER DENTAL APPOINTMENT, VAGINAL/RECTAL EXAMINATION, SURGICAL PROCEDURE, OR ANY OTHER EXPOSURE?NO DATE ASKED : 11/17/2018 LATEX RISK : HAVE YOU EVER HAD ANY DIFFICULTY BREATHING OR HIVES AFTER EATING OR HANDLING ANY FRUITS, OR VEGETABLES; SUCH KIWI, BANANAS, STONE FRUITS, OR CHESTNUTSNO LATEX RISK : DO YOU HAVE A PREVIOUS PERSONAL HISTORY OF MORE THAN NINE SURGERIES, SPINA BIFIDA, OR REPEATED CATHERIZATIONS? NO LATEX RISK : ARE YOU FREQUENTLY EXPOSED TO LATEX PRODUCTS IN YOUR OCCUPATION?NO CAFFEINE CAFFEINE USE?YES HOW OFTEN AND HOW MUCH? DAILY ADVANCE DIRECTIVE ADVANCE DIRECTIVE DISCUSSED WITH PATIENT:YES HCP - HAYDE HICKEY (DAUGHTER) JAIN JAIN NO EVANGELICAL BELIEFS THAT WOULD IMPACT HEALTH CARE. ALCOHOL SCREENING DID YOU HAVE A DRINK CONTAINING ALCOHOL IN THE PAST YEAR?NO POINTS0 INTERPRETATIONNEGATIVE SEXUAL HX HAD SEX IN THE LAST 12 MONTHS (VAGINAL, ORAL, OR ANAL)?NO HAVE YOU EVER HAD AN STD?NO REVIEWED WITH PATIENT 04/05/18 1525 JSREVIEWED WITH PATIENT 12/15/18 1125 LAS. HOSPITALIZATION/MAJOR DIAGNOSTIC PROCEDURE COPD FLARE UP X2 05/11 SURGERY SURGERY 10/12 PNEUMONIA/BRONCHITIS CHEST PAIN ([facility]) SEPTEMBER 2017 PNEUMONIA APRIL 2018 DOUBLE PNEUMONIA MAY 2018 REVIEW OF SYSTEMS REVIEWED BY: PROVIDER: , AMY BENTON . CONSTITUTIONAL: ANY CHANGE IN YOUR MEDICAL CONDITION? NO, NO . CHILLS NO, NO . FEVER NO, NO . INFECTION: DO YOU HAVE NEW INFECTIONS? NO, NO . DO YOU HAVE HISTORY OF MRSA? YES FROM PAST HOSPITALIZATIONS . MUSCULOSKELETAL: ANY NEW PATTERNS OF PAIN OR NUMBNESS? YES EXPERIENCING ARM NUMBNESS AND INVOLUTARY ARM MOVEMENT PT STATES SHE NEEDS TO SEE NEUROLOGIST . GASTROENTEROLOGY: ANY NEW CHANGE IN BOWEL CONTROL? NO, NO . GENITOURINARY: ANY NEW CHANGE IN BLADDER CONTROL? NO, NO . IS THERE A CHANCE YOU COULD BE ? NO, NO . HEMATOLOGY/LYMPH: DO YOU TAKE ANY BLOOD THINNERS? (FOR EXAMPLE- COUMADIN, PLAVIX, AGGRENOX, PLATEL, PRADAXA, OR XARELTO) NO, NO . WHEN WAS YOUR LAST DOSE? DATE: TIME: , DATE: TIME: . NEUROLOGY: HAVE YOU FALLEN IN THE PAST 12 MONTHS? NO, NO . ANY NEW EXTREMITY NUMBNESS OR WEAKNESS? NO, NO . CARDIOLOGY: DO YOU HAVE A PACEMAKER OR DEFIBRILLATOR? NO, NO . RESPIRATORY: HAVE YOU BEEN SICK IN THE PAST WEEK? NO, NO . FEVER NO, NO . FLU LIKE SYMPTOMS? NO, NO . COUGH NO, NO . INTEGUMENTARY: DO YOU HAVE ANY RASHES OR OPEN SORES? NO, NO . ALLERGIC/IMMUNO: ARE YOU ALLERGIC TO IV DYE? NO, NO . ANY NEW ALLERGIES? NO, NO . PSYCHIATRIC: DO YOU HAVE THOUGHTS OF HURTING YOURSELF OR SOMEONE ELSE? NO, NO . ARE YOU ABUSED, NEGLECTED, OR IN AN UNSAFE ENVIRONMENT? NO, NO . ENDOCRINOLOGY: ARE YOU DIABETIC? NO, NO . OTHER: DO YOU NEED ANY PRESCRIPTIONS? YES NEED OXYCODONE AND TRAMADOL . IF YES, PLEASE LIST: ____, ____ . ANY NEW PROBLEMS WITH YOUR MEDICATIONS? NO, NO . WHEN DID YOU LAST EAT? ____, ____ . WHEN DID YOU LAST DRINK? ____, ____ . WHAT DID YOU LAST DRINK? ____, ____ . NAME OF PERSON DRIVING YOU HOME? ____, ____ . DO YOU HAVE ANY OTHER QUESTIONS OR CONCERNS NO, NO . VITAL SIGNS WT 177.6 LBS, HT 62.5 IN, BMI 31.96 INDEX, BP 156/70 MM HG, HR 79 /MIN, RR 18 /MIN, TEMP 97.6 F, OXYGEN SAT % 95%, SAFE IN ENV? (Y/N) YES, NA INITIALS AW 1334, REVIEWED BY: KG. EXAMINATION GENERAL EXAMINATION: LUNGS: LUNG SOUNDS ARE CLEAR. HEART: HEART RATE REGULAR. MUSCULOSKELETAL:*, MUSCLE STRENGTH TESTING 5/5 BILATERAL UPPER EXTREMITIES , PALPATION: POSITIVE FOR PAIN OVER CERVICAL SPINE. POSITIVE FOR PAIN OVER CERVICAL PARASPINALS.SPECIFIC TRIGGER POINTS ELICITED L>R.PAIN IN THIS AREA AGGREVATED BY ROJM NECK.. DIAGNOSTIC: . ASSESSMENTS MYALGIA OF MUSCLE OF NECK - M79.18 (PRIMARY) TREATMENT MYALGIA OF MUSCLE OF NECK CONTINUE TRAMADOL HCL TABLET, 50 MG, 1 TABLET NEEDED, ORALLY, Q6-8H PRN PAIN MDD2, 30 DAYS, 60, REFILLS 2 CONTINUE OXYCODONE-ACETAMINOPHEN TABLET, 10-325 MG, 1 TABLET NEEDED, ORALLY FOR PAIN, Q4-6H PRN MDD5, 30 DAYS, 150, REFILLS 0 NOTES: TPI LEFT NECK, ISTOP REGISTRY REVIEWED AND DEMONSTRATES COMPLLIANCE. (REF # ) BRINGS IN MEDICATIONS WHICH IS APPROPRIATE FOR WHAT WAS DISPENSED. RECENT URINE TOXICOLOGY REVIEWED. NO UNAUTHORIZED MEDICATIONS. NO ILLICIT SUBSTANCES AND PRESCRIBED MEDICATIONS WERE PRESENT. , RISKS AND BENEFITS OF NARCOTIC/OPIOD MEDICATIONS WERE REVIEWED WITH PATIENT - THIS INCLUDES BUT IS NOT LIMITED TO RISK OF DEPENDANCE/DEVELOPMENT OF ADDICTION, MOOD DISTURBANCE AND DEPRESSION, OSTEOPOROSIS, HORMONAL AND LABIDAL CHANGES, RESPIRATORY DEPRESSION AND . PATIENT IS ADVISED NOT TO DRIVE OR DRINK ALCOHOL WHILE ON THESE MEDICATIONS. PROCEDURE CODES FA211 ESTABILISHED PATIENT [facility] FACILITY CHARGE DISPOSITION & COMMUNICATION FOLLOW UP POST (REASON: TPI LEFT NECK) ELECTRONICALLY SIGNED BY CHETAN HOWELL ON 03/20/2019 AT 02:11 PM EDT DISCLAIMER : THIS IS A VISIT SUMMARY EXTRACTED FROM THE [employer] CHART. IT IS NOT A COPY OF THE [employer] PROGRESS NOTE. YURIY
== END ==
LOC: M PAIN 13:15
PROVIDERS: ATTEND Nurse Practitioner Family
DX: M79.18 Myalgia, other site (principal); K21.9 Gastro-esophageal reflux disease without esophagitis; E03.9 Hypothyroidism, unspecified; M19.90 Unspecified osteoarthritis, unspecified site; G47.00 Insomnia, unspecified; G47.30 Sleep apnea, unspecified; J44.9 Chronic obstructive pulmonary disease, unspecified; Z98.84 Bariatric surgery status; Z88.1 Allergy status to other antibiotic agents; Z88.2 Allergy status to sulfonamides; Z88.8 Allergy status to other drugs, medicaments and biological substances; Z79.899 Other long term (current) drug therapy

== ENCOUNTER → 2019-03-10 | Outpatient (CLI) | payer MEDICARE, MEDICAID ==
[~2019-03-10] MED LIST changes: +BUPIVACAINE HCL 0.25% 10 ML VIAL As Ordered ONE; +BUPIVACAINE HCL 0.25% 30 ML VIAL As Ordered ONE; +TRIAMCINOLONE ACETONIDE SUSP 40 MG/ML VIAL (J3301) As Ordered ONE
--- NOTE | 2019-03-24 00:03 | ECWPNPC ---
PATIENT NAME: DARLENE HICKEY : 1955 GENDER: FEMALE VISIT DATE: 03/10/2019 DISCHARGE DATE: 03/10/19 1055 VISIT LOCKED DATE TIME: PHYSICIAN: KOURTNEY EATON MD RESOURCE: KOURTNEY EATON MD REASON FOR APPOINTMENT 1. TPI BILAT SHOULDER HISTORY OF PRESENT ILLNESS HISTORY OF PRESENT ILLNESS: PAIN THE PATIENT DESCRIBES THE PAIN... FALL RISK SCREENING: SCREENING :NO FALLS REPORTED IN THE LAST YEAR CURRENT MEDICATIONS TAKING LEVOTHYROXINE SODIUM 25 MCG TABLET 1 TABLET ON AN EMPTY STOMACH IN THE MORNING ORALLY ONCE A DAY TAKING DRISDOL 97779 UNIT CAPSULE 1 CAPSULE ORALLY TWICE A WEEK TAKING DICLO GEL 1 % KIT DIRECTED TRANSDERMAL TAKING PROTONIX 40 MG TABLET DELAYED RELEASE 1 TABLET ORALLY ONCE A DAY TAKING HYDROCHLOROTHIAZIDE 25 MG TABLET 1 TABLET IN THE MORNING ORALLY ONCE A DAY, NOTES: NEEDED TAKING HYDROXYCHLOROQUINE SULFATE 200 MG TABLET 1 TABLET WITH FOOD OR MILK ORALLY ONCE A DAY TAKING DERMOPLAST 20-0.5 % AEROSOL 1 APPLICATION TO AFFECTED AREA NEEDED EXTERNALLY THREE TIMES A DAY TAKING NYSTATIN 188031 UNIT/GM POWDER 1 APPLICATION TO AFFECTED AREA EXTERNALLY TWICE A DAY TAKING VENTOLIN HFA 108 (90 BASE) MCG/ACT AEROSOL SOLUTION 2 PUFFS INHALATION QID PRN TAKING CARAFATE 1 GM TABLET 1 TABLET ORALLY THREE X DAILY TAKING MULTIVITAMINS TABLET 1 TABLET ORALLY ONCE A DAY TAKING FOLIC ACID 1 MG TABLET 1 TABLET ORALLY ONCE A DAY TAKING CYMBALTA 60 MG CAPSULE DELAYED RELEASE PARTICLES 1 CAPSULE ORALLY ONCE A DAY TAKING COLACE 100 MG CAPSULE 1 CAPSULE NEEDED ORALLY TWICE A DAY TAKING DICLOFENAC SODIUM 75 MG TABLET DELAYED RELEASE 1 TABLET WITH FOOD OR MILK ORALLY TWICE A DAY TAKING LEFLUNOMIDE 20 MG TABLET 1 TABLET ORALLY ONCE A DAY, NOTES: DR. RIVERO/RHEUMATOLOGY TAKING GABAPENTIN 600 MG TABLET 1 CAPSULE ORALLY TID TAKING ROPINIROLE HCL 0.5 MG TABLET 1 TABLET 1 TO 3 HOURS BEFORE BEDTIME ORALLY ONCE A DAY TAKING SLOW-MAG 71.5-119 MG TABLET DELAYED RELEASE TAKE 3 TABLETS BY MOUTH ONCE DAILY. ORALLY DAILY TAKING TRAMADOL HCL 50 MG TABLET 1 TABLET NEEDED ORALLY Q6-8H PRN PAIN MDD2 TAKING OXYCODONE-ACETAMINOPHEN 10-325 MG TABLET 1 TABLET NEEDED ORALLY FOR PAIN Q4-6H PRN MDD5 TAKING AMBIEN 10 MG TABLET 1 TABLET AT BEDTIME NEEDED ORALLY ONCE A DAY TAKING TRAZODONE HCL 100 MG TABLET 1/2 TABLET AT BEDTIME ORALLY ONCE A DAY DISCONTINUED DRISDOL 88123 UNIT CAPSULE 1 CAPSULE ORALLY TWICE A WEEK, NOTES: DUPLICATE MEDICATION LIST REVIEWED AND RECONCILED WITH THE PATIENT PAST MEDICAL HISTORY HX NECK FUSION HX ULCERS FIBROMYALGIA GERD HYPOTHYROID KNEE PAIN - ARTHRITIS OSTEOARTHRITIS INSOMNIA LOW VITAMIN D DEGENERATIVE DISC DISEASE OBESITY HIGH - 310 DIVERTICULITIS SLEEP APNEA 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 POS COPD HISTORY OF PULMONARY EMBOLISM VERTIGO GASTRIC ULCER ANEURESYM BRAIN STEM RHEUMATOID ARTHRITIS ALLERGIES CIPRO: THROAT SWELLING - ALLERGY LYRICA: MEMORY LOSS - SIDE EFFECTS ROBAXIN: RASH - ALLERGY SULFASALAZINE: HIVES - ALLERGY SULFA (FOR ALLERGY USE ONLY): HIVES - SIDE EFFECTS SURGICAL HISTORY EYE OPERATION - LEFT "LAZY EYE" 1964 C - SECTION 1979 C- SECTION 1988 BREAST REDUCTION 1998 GASTRIC BYPASS 2004 GALLBALDDER 2007 CYST REMOVAL (BENIGN) ARM AND BACK 2009 LEFT KNEE SURGERY 2008 RIGHT KNEE SURGERY 2009 HERNIA SURGERY 2009 APPENDECTOMY WITH COMPLICATIONS (COLOSTOMY BAG - REMOVED 10/07) 2010 REMOVED SEVERAL CYSTS FROM COLON AND BREASTS (ABSCESSES) 2010 HERNIAS REPAIRED X 2 09/2011 NECK FUSION C5-6-7-8 2010 UPPER ENDOSCOPY 10/2011 COLONOSCOPY 09/06 EPIDURAL 02/04/15 INCISIONAL HERNIA REPAIR 09/2016 CHANDU BLOCK AT [facility] 2017 FAMILY HISTORY FATHER: , DIAGNOSED WITH DIABETES, OTHER MALIGNANT NEOPLASM OF UNSPECIFIED SITE MOTHER: , DIABETES, OTHER SPECIFIED CONDITIONS INFLUENCING HEALTH STATUS 3 BROTHER(S) . 1 SON(S) , 2 DAUGHTER(S) - HEALTHY. DAUGHTER (HAYDE) WITH RA OR MS. SOCIAL HISTORY GENERAL: TOBACCO USE ARE YOU A:NONSMOKER NEVER A SMOKER HIV / HEP-C SCREENING HIV TEST OFFERED TO PATIENT:YES DATE OFFERED:02/02/2018 TEST ACCEPTED:NO HEP-C TEST OFFERED TO PATIENT:YES DATE OFFERED:02/02/2018 REASON:PATIENT DECLINED TEST ACCEPTED:NO REASON:PATIENT DECLINED BROCHURE PROVIDED TO PATIENTNO LANGUAGE LANGUAGES SPOKEN:FRENCH DOMESTIC VIOLENCE DO YOU FEEL SAFE IN YOUR ENVIRONMENT?YES NEW PATIENT PAIN DIARY TODAY'S VISIT NOTES, FROM 0-10, WHAT LEVEL IS YOUR PAIN TODAY? 0. RECREATIONAL DRUG USE DRUG USE?NO LEARNING BARRIERS / SPECIAL NEEDS BARRIERS TO LEARNING?NO HEARING IMPAIRED?NO VISION IMPAIRED?YES COGNITIVELY IMPAIRED?NO :CORRECTIVE LENSES READINESS TO LEARN?YES LEARNING PREFERENCES?NO LEARNING CAPABILITIES PRESENT?YES EMOTIONAL BARRIERS?NO SPECIAL DEVICES?NO CELL ATTENDANT HELPER NEEDED?NO PAIN CLINIC PFS, CLERGY, PUBLIC HEALTH REFERRALS PFS REFERRAL NEEDED?NO CLERGY REFERRAL NEEDED?NO PUBLIC HEALTH REFERRAL NEEDED?NO WAS THE PROVIDER NOTIFIED OF ANY PERTINENT INFO?NO HAS THE PATIENT BEEN EDUCATED REGARDING HIS/HER PLAN OF CARE?YES HAS THE PATIENT BEEN EDUCATED REGARDING PAIN, THE RISK FOR PAIN, THE IMPORTANCE OF EFFECTIVE PAIN MANAGEMENT, AND THE PAIN ASSESSMENT PROCESS?YES LATEX QUESTIONNAIRE LATEX ALLERGY : HAVE YOU EVER DEVELOPED ANY TYPE OF REACTION AFTER HANDLING LATEX PRODUCTS SUCH RUBBER GLOVES, CONDOMS, DIAPHRAGMS, BALLOONS, SOCKS, OR UNDERWEAR?NO LATEX ALLERGY : HAVE YOU EVER DEVELOPED ANY TYPE OF REACTION DURING OR AFTER DENTAL APPOINTMENT, VAGINAL/RECTAL EXAMINATION, SURGICAL PROCEDURE, OR ANY OTHER EXPOSURE?NO DATE ASKED : 11/17/2018 LATEX RISK : HAVE YOU EVER HAD ANY DIFFICULTY BREATHING OR HIVES AFTER EATING OR HANDLING ANY FRUITS, OR VEGETABLES; SUCH KIWI, BANANAS, STONE FRUITS, OR CHESTNUTSNO LATEX RISK : DO YOU HAVE A PREVIOUS PERSONAL HISTORY OF MORE THAN NINE SURGERIES, SPINA BIFIDA, OR REPEATED CATHERIZATIONS? NO LATEX RISK : ARE YOU FREQUENTLY EXPOSED TO LATEX PRODUCTS IN YOUR OCCUPATION?NO CAFFEINE CAFFEINE USE?YES HOW OFTEN AND HOW MUCH? DAILY ADVANCE DIRECTIVE ADVANCE DIRECTIVE DISCUSSED WITH PATIENT:YES HCP - HAYDE HICKEY (DAUGHTER) EPISCOPAL EPISCOPAL NO MORMONISM BELIEFS THAT WOULD IMPACT HEALTH CARE. ALCOHOL SCREENING DID YOU HAVE A DRINK CONTAINING ALCOHOL IN THE PAST YEAR?NO POINTS0 INTERPRETATIONNEGATIVE SEXUAL HX HAD SEX IN THE LAST 12 MONTHS (VAGINAL, ORAL, OR ANAL)?NO HAVE YOU EVER HAD AN STD?NO REVIEWED WITH PATIENT 04/05/18 1525 JSREVIEWED WITH PATIENT 12/15/18 1125 LASREVIEWED WITH PATIENT 03/10/19 0931 BV. HOSPITALIZATION/MAJOR DIAGNOSTIC PROCEDURE COPD FLARE UP X2 05/11 SURGERY SURGERY 10/12 PNEUMONIA/BRONCHITIS -2017 CHEST PAIN ([facility] SEPTEMBER 2017 PNEUMONIA APRIL 2018 DOUBLE PNEUMONIA MAY 2018 REVIEW OF SYSTEMS REVIEWED BY: PROVIDER: . CONSTITUTIONAL: ANY CHANGE IN YOUR MEDICAL CONDITION? NO . CHILLS NO . FEVER NO . INFECTION: DO YOU HAVE NEW INFECTIONS? NO . DO YOU HAVE HISTORY OF MRSA? NO . MUSCULOSKELETAL: ANY NEW PATTERNS OF PAIN OR NUMBNESS? YES, PT REPORTS INCREASING SEVERE "BURNING SENSATION" ON RIGHT LATERAL THIGH FOR THE PAST 3 WEEKS . GASTROENTEROLOGY: ANY NEW CHANGE IN BOWEL CONTROL? NO . GENITOURINARY: ANY NEW CHANGE IN BLADDER CONTROL? NO . IS THERE A CHANCE YOU COULD BE ? NO . HEMATOLOGY/LYMPH: DO YOU TAKE ANY BLOOD THINNERS? (FOR EXAMPLE- COUMADIN, PLAVIX, AGGRENOX, PLATEL, PRADAXA, OR XARELTO) NO . WHEN WAS YOUR LAST DOSE? DATE: TIME: . NEUROLOGY: HAVE YOU FALLEN IN THE PAST 12 MONTHS? NO . ANY NEW EXTREMITY NUMBNESS OR WEAKNESS? YES, PT COMPLAINS OF INCREASING NUMBNESS IN BILATERAL HANDS OVER THE PAST 2 WEEKS . CARDIOLOGY: DO YOU HAVE A PACEMAKER OR DEFIBRILLATOR? NO . RESPIRATORY: HAVE YOU BEEN SICK IN THE PAST WEEK? NO . FEVER NO . FLU LIKE SYMPTOMS? NO . COUGH NO . INTEGUMENTARY: DO YOU HAVE ANY RASHES OR OPEN SORES? NO . ALLERGIC/IMMUNO: ARE YOU ALLERGIC TO IV DYE? NO . ANY NEW ALLERGIES? NO . PSYCHIATRIC: DO YOU HAVE THOUGHTS OF HURTING YOURSELF OR SOMEONE ELSE? NO . ARE YOU ABUSED, NEGLECTED, OR IN AN UNSAFE ENVIRONMENT? NO . ENDOCRINOLOGY: ARE YOU DIABETIC? NO . OTHER: DO YOU NEED ANY PRESCRIPTIONS? NO . IF YES, PLEASE LIST: ____ . ANY NEW PROBLEMS WITH YOUR MEDICATIONS? NO . WHEN DID YOU LAST EAT? 03/09/19 1900 . WHEN DID YOU LAST DRINK? 03/10/19 0730 . WHAT DID YOU LAST DRINK? WATER . NAME OF PERSON DRIVING YOU HOME? ANNIE HICKEY . DO YOU HAVE ANY OTHER QUESTIONS OR CONCERNS NO . VITAL SIGNS WT 178.6 LBS, HT 62.5 IN, BMI 32.14 INDEX, BP 130/64 MM HG, HR 70 /MIN, RR 18 /MIN, TEMP 96.6 F, OXYGEN SAT % 97%, NA INITIALS AW 0922, REVIEWED BY: BV. ASSESSMENTS MYALGIA, OTHER SITE - M79.18 (PRIMARY) PROCEDURES PN TRIGGER POINT INJECTION WITH STEROIDS PRE PROCEDURE DIAGNOSIS 1. MYALGIA 2. PAIN AT BILATERAL SHOULDER AREA POST PROCEDURE DIAGNOSIS 1. MYALGIA 2. PAIN AT BILATERAL SHOULDER AREA PROCEDURE TRIGGER POINT INJECTION AT RIGHT AND LEFT SHOULDER AREA SURGEON DR. KOURTNEY EATON MANUFACTURING ANALYST NONE ANESTHESIA LOCAL PRE PROCEDURE NOTE THE PATIENT HAS A HISTORY OF CHRONIC PAIN AT THE RIGHT AND LEFT SHOULDER AREA. I EVALUATED THE PATIENT AND REVIEWED THE CHART. THERE IS EVIDENCE OF BANDS OF TISSUE WITH RESTRICTION OF MOVEMENT AND PRESENCE OF TRIGGER POINT AT THE AFFECTED AREA. I WENT OVER THE RISKS, ALTERNATIVES, AND BENEFITS ASSOCIATED WITH THIS PROCEDURE. THE PATIENT WOULD LIKE TO PROCEED AND GIVES CONSENT TO PERFORM THE PROCEDURE. THE PATIENT DENIES UNEXPLAINABLE WEIGHT LOSS, FEVER, CHILLS, OR NEW CHANGES IN URINARY OR BOWEL CONTROL DESCRIPTION OF PROCEDURE THE PATIENT WAS BROUGHT TO THE PROCEDURE ROOM AND PLACED IN THE SITTING POSITION. THE AREA WAS CLEANED WITH ALCOHOL. THE PROCEDURE WAS DONE USING ASEPTIC STERILE TECHNIQUE. I CHECKED LATERALITY AND THE LEVEL WHERE THE PROCEDURE WAS GOING TO BE PERFORMED WITH THE PATIENT AND THE SUPPORTING STAFF AT THE MOMENT OF THE TIME OUT IN THE PROCEDURE ROOM. USING A 25-GAUGE NEEDLE, TRIGGER POINTS WERE INJECTED AT THE RIGHT AND LEFT SHOULDER AREA WITH A TOTAL OF 40 ML OF BUPIVACAINE 0.25% AND KENALOG 40 MG. THERE WAS NO EVIDENCE OF BLOOD, PARESTHESIA OR CEREBROSPINAL FLUID DURING THE PROCEDURE. THE PATIENT WAS SENT TO THE RECOVERY ROOM. THE PATIENT WAS MOVING THE EXTREMITIES AND DOING WELL. THERE WAS NO COMPLICATION DURING THE PROCEDURE POST PROCEDURE NOTE THE PATIENT WILL BE SEEN IN A FOLLOW UP IN THE NEXT FEW WEEKS. INSTRUCTIONS WERE GIVEN, QUESTIONS WERE ANSWERED, AND THE PATIENT EXPRESSED UNDERSTANDING AND AGREES WITH THE PLAN. I, VALERIE ORTEGA, DOCUMENTED THE ABOVE INFORMATION ACTING A SCRIBE FOR DR. EATON. I HAVE REVIEWED THE ABOVE DOCUMENT, WRITTEN BY VALERIE ALCARAZ AND I VERIFY THAT IT IS ACCURATE. PROCEDURE CODES 84197 INJ TRIGGER POINT / [facility] DISPOSITION & COMMUNICATION FOLLOW UP 3 WEEKS ELECTRONICALLY SIGNED BY KOURTNEY EATON MD, MD ON 03/23/2019 AT 05:45 PM EDT DISCLAIMER : THIS IS A VISIT SUMMARY EXTRACTED FROM THE [employer] CHART. IT IS NOT A COPY OF THE [employer] PROGRESS NOTE. MTDRebekah
== END ==
LOC: M PAIN 09:30
PROVIDERS: ATTEND Anesthesiology
DX: M79.18 Myalgia, other site (principal); M79.7 Fibromyalgia; K21.9 Gastro-esophageal reflux disease without esophagitis; E03.9 Hypothyroidism, unspecified; G47.00 Insomnia, unspecified; E55.9 Vitamin D deficiency, unspecified; E66.9 Obesity, unspecified; Z68.32 Body mass index [BMI] 32.0-32.9, adult; G47.30 Sleep apnea, unspecified; J44.9 Chronic obstructive pulmonary disease, unspecified; R42 Dizziness and giddiness; M06.9 Rheumatoid arthritis, unspecified; Z86.711 Personal history of pulmonary embolism; Z98.1 Arthrodesis status; Z98.84 Bariatric surgery status; Z90.49 Acquired absence of other specified parts of digestive tract; M15.9 Polyosteoarthritis, unspecified; Z79.891 Long term (current) use of opiate analgesic; Z79.899 Other long term (current) drug therapy; Z88.1 Allergy status to other antibiotic agents; Z88.2 Allergy status to sulfonamides; Z88.8 Allergy status to other drugs, medicaments and biological substances
CPT/HCPCS: 20552; J3301

== ENCOUNTER → 2019-03-23 | Outpatient (REF) | payer OTHER ==
[~2019-03-23] MED LIST changes: -BUPIVACAINE HCL 0.25% 10 ML VIAL As Ordered ONE; -BUPIVACAINE HCL 0.25% 30 ML VIAL As Ordered ONE; -TRIAMCINOLONE ACETONIDE SUSP 40 MG/ML VIAL (J3301) As Ordered ONE
[2019-03-23 18:11] LABS: ALT/SGPT 19 U/L (12-78); CREATININE FOR GFR 0.98 MG/DL (0.55-1.30); GLOMERULAR FILTRATION RATE > 60.0 (>45)
[2019-03-23 18:13] LABS: BASO # 0.1 10^3/uL (0.0-0.2); BASO % 0.4 % (0.0-1.0); EOS # 0.1 10^3/uL (0.0-0.5); EOS % 0.7 % (0.0-3.0); HEMATOCRIT 36.3 % (36.0-47.0); HEMOGLOBIN 11.3 g/dl (12.0-15.5); LYMPH # 1.7 10^3/uL (1.5-5.0); LYMPH % 12.8 % (24.0-44.0); MEAN CORPUSCULAR HEMOGLOBIN 28.5 pg (27.0-33.0); MEAN CORPUSCULAR HGB CONC 31.1 g/dl (32.0-36.5); MEAN CORPUSCULAR VOLUME 91.7 fl (80.0-96.0); MONO # 1.2 10^3/uL (0.0-0.8); NEUTROPHILS # 9.9 10^3/uL (1.5-8.5); NEUTROPHILS % 76.7 % (36.0-66.0); PLATELET COUNT, AUTOMATED 280 10^3/uL (150-450); RED BLOOD COUNT 3.96 10^6/uL (4.00-5.40); WHITE BLOOD COUNT 12.9 10^3/uL (4.0-10.0)
== END ==
LOC: M LABDRAWC 17:33
PROVIDERS: ATTEND Internal Medicine Rheumatology
DX: Z79.1 Long term (current) use of non-steroidal anti-inflammatories (NSAID) (principal); Z79.899 Other long term (current) drug therapy

== ENCOUNTER → 2019-03-23 | Outpatient (REF) | payer MEDICARE, MEDICAID ==
[2019-03-23 18:17] LABS: ALBUMIN 3.4 GM/DL (3.2-5.2); ALT/SGPT 17 U/L (12-78); BILIRUBIN,TOTAL 0.4 MG/DL (0.2-1.0); BLOOD UREA NITROGEN 23 MG/DL (7-18); CALCIUM LEVEL 9.1 MG/DL (8.8-10.2); CARBON DIOXIDE LEVEL 30 MEQ/L (21-32); CHLORIDE LEVEL 104 MEQ/L (98-107); CHOLESTEROL LEVEL 179 MG/DL (<200); CHOLESTEROL RISK RATIO 3.033 (<5); CREATININE FOR GFR 0.99 MG/DL (0.55-1.30); GLOMERULAR FILTRATION RATE > 60.0 (>45); GLUCOSE, FASTING 94 MG/DL (70-100); HDL CHOLESTEROL 59 MG/DL (>40); IRON (FE) 21 UG/DL (50-170); LDL CHOLESTEROL 99 MG/DL (<100); NON-HDL-C 120 MG/DL; PERCENT SATURATION 6.6 % (13.2-45.0); POTASSIUM SERUM 4.5 MEQ/L (3.5-5.1); SODIUM LEVEL 141 MEQ/L (136-145); TOTAL IRON BINDING CAPACITY 320 UG/DL (250-450); TOTAL PROTEIN 6.5 GM/DL (6.4-8.2); TRIGLYCERIDES LEVEL 104 MG/DL (<150)
[2019-03-23 18:25] LABS: TOTAL 25(OH) VITAMIN D 115.9 NG/ML (30.0-100.0)
== END ==
LOC: M SFHCCLAY 10:12
PROVIDERS: ATTEND Nurse Practitioner Family
DX: G47.00 Insomnia, unspecified (principal); E78.5 Hyperlipidemia, unspecified; Z98.890 Other specified postprocedural states; E55.9 Vitamin D deficiency, unspecified; Z79.1 Long term (current) use of non-steroidal anti-inflammatories (NSAID); Z79.899 Other long term (current) drug therapy

== ENCOUNTER → 2019-03-27 | Outpatient (CLI) | payer MEDICARE, MEDICAID | LOC: M PAIN 13:00 | PROVIDERS: ATTEND Nurse Practitioner Family | DX: M79.18 Myalgia, other site (principal); M96.1 Postlaminectomy syndrome, not elsewhere classified; Z79.891 Long term (current) use of opiate analgesic; Z79.899 Other long term (current) drug therapy; Z88.1 Allergy status to other antibiotic agents; Z88.2 Allergy status to sulfonamides; Z88.8 Allergy status to other drugs, medicaments and biological substances; Z86.14 Personal history of Methicillin resistant Staphylococcus aureus infection ==

== ENCOUNTER → 2019-07-13 | Outpatient (CLI) | payer MEDICARE, MEDICAID ==
--- NOTE | 2019-08-01 02:48 | ECWPNPC ---
PATIENT NAME: DARLENE HICKEY : 1955 GENDER: FEMALE VISIT DATE: 07/13/2019 DISCHARGE DATE: 07/13/19 1410 VISIT LOCKED DATE TIME: PHYSICIAN: AMY SHAH RESOURCE: AMY SHAH REASON FOR APPOINTMENT 1. BACK/NECK HISTORY OF PRESENT ILLNESS HISTORY OF PRESENT ILLNESS: HERE FOR F/U AND MANAGEMENT OF CHRONIC NECK PAIN.PATIENT HAS RHEUMATOID ARTHRITIS.FOLLOWS [facility] FOR HEADACHES.FINDS CURRENT MEDICATION HELPFUL AT REDUCING PAIN AND KEEPING HER FUNCTIONAL.DENIES ADVERS EFFECTS WITH MEDICATION.REPORTING PAIN VAS 4-8/10.CHIEF AREA OF PAIN IS LEFT NECK.PAIN IS AGGREVATED IN THIS AREA WITH LIFTING OR CERTAIN POSITIONS. PAIN THE PATIENT DESCRIBES THE PAIN... FALL RISK SCREENING: SCREENING :NO FALLS REPORTED IN THE LAST YEAR CURRENT MEDICATIONS TAKING DICLO GEL 1 % KIT DIRECTED TRANSDERMAL TAKING PROTONIX 40 MG TABLET DELAYED RELEASE 1 TABLET ORALLY ONCE A DAY TAKING HYDROXYCHLOROQUINE SULFATE 200 MG TABLET 1 TABLET WITH FOOD OR MILK ORALLY ONCE A DAY TAKING DERMOPLAST 20-0.5 % AEROSOL 1 APPLICATION TO AFFECTED AREA NEEDED EXTERNALLY THREE TIMES A DAY TAKING NYSTATIN [id number] UNIT/GM POWDER 1 APPLICATION TO AFFECTED AREA EXTERNALLY TWICE A DAY TAKING VENTOLIN HFA 108 (90 BASE) MCG/ACT AEROSOL SOLUTION 2 PUFFS INHALATION QID PRN TAKING CARAFATE 1 GM TABLET 1 TABLET ORALLY THREE X DAILY TAKING MULTIVITAMINS TABLET 1 TABLET ORALLY ONCE A DAY TAKING FOLIC ACID 1 MG TABLET 1 TABLET ORALLY ONCE A DAY TAKING CYMBALTA 60 MG CAPSULE DELAYED RELEASE PARTICLES 1 CAPSULE ORALLY ONCE A DAY TAKING COLACE 100 MG CAPSULE 1 CAPSULE NEEDED ORALLY TWICE A DAY TAKING DICLOFENAC SODIUM 75 MG TABLET DELAYED RELEASE 1 TABLET WITH FOOD OR MILK ORALLY TWICE A DAY TAKING LEFLUNOMIDE 20 MG TABLET 1 TABLET ORALLY ONCE A DAY, NOTES: DR. RIVERO/RHEUMATOLOGY TAKING SLOW-MAG 71.5-119 MG TABLET DELAYED RELEASE TAKE 3 TABLETS BY MOUTH ONCE DAILY. ORALLY DAILY TAKING HYDROCHLOROTHIAZIDE 25 MG TABLET 1 TABLET IN THE MORNING ORALLY ONCE A DAY, NOTES: NEEDED TAKING AMBIEN 10 MG TABLET 1 TABLET AT BEDTIME NEEDED ORALLY ONCE A DAY TAKING LEVOTHYROXINE SODIUM 25 MCG TABLET TAKE 1 TABLET BY MOUTH EVERY MORNING ON AN EMPTY STOMACH TAKING GABAPENTIN 600 MG TABLET 1 CAPSULE ORALLY TID TAKING ROPINIROLE HCL 0.5 MG TABLET TAKE 1 TABLET BY MOUTH 1 TO 3 HOURS BEFORE BEDTIME TAKING TRAMADOL HCL 50 MG TABLET 1 TABLET NEEDED ORALLY Q6-8H PRN PAIN MDD2 TAKING OXYCODONE-ACETAMINOPHEN 10-325 MG TABLET 1 TABLET NEEDED ORALLY FOR PAIN Q4-6H PRN MDD5 TAKING TRAZODONE HCL 100 MG TABLET 1-2 TABLET AT BEDTIME ORALLY ONCE A DAY MEDICATION LIST REVIEWED AND RECONCILED WITH THE PATIENT PAST MEDICAL HISTORY HX NECK FUSION HX ULCERS FIBROMYALGIA GERD HYPOTHYROID KNEE PAIN - ARTHRITIS OSTEOARTHRITIS INSOMNIA LOW VITAMIN D DEGENERATIVE DISC DISEASE OBESITY HIGH - 310 DIVERTICULITIS SLEEP APNEA 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 POS COPD HISTORY OF PULMONARY EMBOLISM VERTIGO GASTRIC ULCER ANEURESYM BRAIN STEM RHEUMATOID ARTHRITIS ALLERGIES CIPRO: THROAT SWELLING - ALLERGY LYRICA: MEMORY LOSS - SIDE EFFECTS ROBAXIN: RASH - ALLERGY SULFASALAZINE: HIVES - ALLERGY SULFA (FOR ALLERGY USE ONLY): HIVES - SIDE EFFECTS SURGICAL HISTORY EYE OPERATION - LEFT "LAZY EYE" 1964 C - SECTION 1979 C- SECTION 1988 BREAST REDUCTION 1998 GASTRIC BYPASS 2004 GALLBALDDER 2007 CYST REMOVAL (BENIGN) ARM AND BACK 2008 LEFT KNEE SURGERY 2008 RIGHT KNEE SURGERY 2010 HERNIA SURGERY 2009 APPENDECTOMY WITH COMPLICATIONS (COLOSTOMY BAG - REMOVED 10/07) 2010 REMOVED SEVERAL CYSTS FROM COLON AND BREASTS (ABSCESSES) 2010 HERNIAS REPAIRED X 2 09/2011 NECK FUSION C5-6-7-8 2010 UPPER ENDOSCOPY 10/2011 COLONOSCOPY 09/06 EPIDURAL 02/04/15 INCISIONAL HERNIA REPAIR 09/2016 CHANDU BLOCK AT [facility] 2018 FAMILY HISTORY FATHER: , DIAGNOSED WITH DIABETES, OTHER MALIGNANT NEOPLASM OF UNSPECIFIED SITE MOTHER: , OTHER SPECIFIED CONDITIONS INFLUENCING HEALTH STATUS, DIABETES 3 BROTHER(S) . 1 SON(S) , 2 DAUGHTER(S) - HEALTHY. DAUGHTER (HAYDE) WITH RA OR MS. SOCIAL HISTORY GENERAL: TOBACCO USE ARE YOU A:NONSMOKER NEVER A SMOKER HIV / HEP-C SCREENING HIV TEST OFFERED TO PATIENT:YES DATE OFFERED:03/28/2019 TEST ACCEPTED:NO HEP-C TEST OFFERED TO PATIENT:YES DATE OFFERED:03/28/2019 REASON:PATIENT DECLINED TEST ACCEPTED:NO REASON:PATIENT DECLINED BROCHURE PROVIDED TO PATIENTNO LANGUAGE LANGUAGES SPOKEN:[place] DOMESTIC VIOLENCE DO YOU FEEL SAFE IN YOUR ENVIRONMENT?YES NEW PATIENT PAIN DIARY FROM 0-10, WHAT LEVEL IS YOUR PAIN TODAY?4 RECREATIONAL DRUG USE DRUG USE?NO LEARNING BARRIERS / SPECIAL NEEDS BARRIERS TO LEARNING?NO HEARING IMPAIRED?NO VISION IMPAIRED?YES COGNITIVELY IMPAIRED?NO :CORRECTIVE LENSES READINESS TO LEARN?YES LEARNING PREFERENCES?NO LEARNING CAPABILITIES PRESENT?YES EMOTIONAL BARRIERS?NO SPECIAL DEVICES?NO CLINICAL EDUCATION ACADEMIC COORDINATOR NEEDED?NO PAIN CLINIC PFS, CLERGY, PUBLIC HEALTH REFERRALS PFS REFERRAL NEEDED?NO CLERGY REFERRAL NEEDED?NO PUBLIC HEALTH REFERRAL NEEDED?NO WAS THE PROVIDER NOTIFIED OF ANY PERTINENT INFO?NO HAS THE PATIENT BEEN EDUCATED REGARDING HIS/HER PLAN OF CARE?YES HAS THE PATIENT BEEN EDUCATED REGARDING PAIN, THE RISK FOR PAIN, THE IMPORTANCE OF EFFECTIVE PAIN MANAGEMENT, AND THE PAIN ASSESSMENT PROCESS?YES LATEX QUESTIONNAIRE LATEX ALLERGY : HAVE YOU EVER DEVELOPED ANY TYPE OF REACTION AFTER HANDLING LATEX PRODUCTS SUCH RUBBER GLOVES, CONDOMS, DIAPHRAGMS, BALLOONS, SOCKS, OR UNDERWEAR?NO LATEX ALLERGY : HAVE YOU EVER DEVELOPED ANY TYPE OF REACTION DURING OR AFTER DENTAL APPOINTMENT, VAGINAL/RECTAL EXAMINATION, SURGICAL PROCEDURE, OR ANY OTHER EXPOSURE?NO DATE ASKED : 11/17/2018 LATEX RISK : HAVE YOU EVER HAD ANY DIFFICULTY BREATHING OR HIVES AFTER EATING OR HANDLING ANY FRUITS, OR VEGETABLES; SUCH KIWI, BANANAS, STONE FRUITS, OR CHESTNUTSNO LATEX RISK : DO YOU HAVE A PREVIOUS PERSONAL HISTORY OF MORE THAN NINE SURGERIES, SPINA BIFIDA, OR REPEATED CATHERIZATIONS? NO LATEX RISK : ARE YOU FREQUENTLY EXPOSED TO LATEX PRODUCTS IN YOUR OCCUPATION?NO CAFFEINE CAFFEINE USE?YES HOW OFTEN AND HOW MUCH? DAILY ADVANCE DIRECTIVE ADVANCE DIRECTIVE DISCUSSED WITH PATIENT:YES HCP - HAYDE HICKEY (DAUGHTER) ADVENTISM ADVENTISM NO TENRIISM BELIEFS THAT WOULD IMPACT HEALTH CARE. ALCOHOL SCREENING DID YOU HAVE A DRINK CONTAINING ALCOHOL IN THE PAST YEAR?NO POINTS0 INTERPRETATIONNEGATIVE SEXUAL HX HAD SEX IN THE LAST 12 MONTHS (VAGINAL, ORAL, OR ANAL)?NO HAVE YOU EVER HAD AN STD?NO REVIEWED WITH PATIENT 04/05/18 1525 JSREVIEWED WITH PATIENT 12/15/18 1125 LASREVIEWED WITH PATIENT 03/10/19 0931 BVREVIEWED WITH PATIENT 07/13/19 1335 BV. HOSPITALIZATION/MAJOR DIAGNOSTIC PROCEDURE COPD FLARE UP X2 05/11 SURGERY SURGERY 10/12 PNEUMONIA/BRONCHITIS -2017 CHEST PAIN ([facility]) SEPTEMBER 2017 PNEUMONIA APRIL 2018 DOUBLE PNEUMONIA MAY 2018 REVIEW OF SYSTEMS REVIEWED BY: PROVIDER: AMY BENTON . CONSTITUTIONAL: ANY CHANGE IN YOUR MEDICAL CONDITION? NO . CHILLS NO . FEVER NO . INFECTION: DO YOU HAVE NEW INFECTIONS? NO . DO YOU HAVE HISTORY OF MRSA? NO . MUSCULOSKELETAL: ANY NEW PATTERNS OF PAIN OR NUMBNESS? NO . GASTROENTEROLOGY: ANY NEW CHANGE IN BOWEL CONTROL? PT STATES SHE HAS HAD SOME BOWEL INCONTINANCE, ESPECIALLY AT NIGHT. STATES SHE HAS ADDRESSED THIS WITH PRIMARY DOCTOR . GENITOURINARY: ANY NEW CHANGE IN BLADDER CONTROL? PT STATES SHE IS SEEING UROLOGY REGARDING BLADDER CHANGES, STATES SHE HAS HAD INCREASED URGENCY AND URINARY INCONTINENCE. . IS THERE A CHANCE YOU COULD BE ? NO . HEMATOLOGY/LYMPH: DO YOU TAKE ANY BLOOD THINNERS? (FOR EXAMPLE- COUMADIN, PLAVIX, AGGRENOX, PLATEL, PRADAXA, OR XARELTO) NO . WHEN WAS YOUR LAST DOSE? DATE: TIME: . NEUROLOGY: HAVE YOU FALLEN IN THE PAST 12 MONTHS? NO . ANY NEW EXTREMITY NUMBNESS OR WEAKNESS? PT HAS NOTICED IN INCREASE IN OVERALL PAIN, ESPECIALLY HER NECK PAIN. . CARDIOLOGY: DO YOU HAVE A PACEMAKER OR DEFIBRILLATOR? NO . RESPIRATORY: HAVE YOU BEEN SICK IN THE PAST WEEK? NO . FEVER NO . FLU LIKE SYMPTOMS? NO . COUGH NO . INTEGUMENTARY: DO YOU HAVE ANY RASHES OR OPEN SORES? NO . ALLERGIC/IMMUNO: ARE YOU ALLERGIC TO IV DYE? NO . ANY NEW ALLERGIES? NO . PSYCHIATRIC: DO YOU HAVE THOUGHTS OF HURTING YOURSELF OR SOMEONE ELSE? NO . ARE YOU ABUSED, NEGLECTED, OR IN AN UNSAFE ENVIRONMENT? NO . ENDOCRINOLOGY: ARE YOU DIABETIC? NO . OTHER: DO YOU NEED ANY PRESCRIPTIONS? NO . IF YES, PLEASE LIST: ____ . ANY NEW PROBLEMS WITH YOUR MEDICATIONS? NO . WHEN DID YOU LAST EAT? ____ . WHEN DID YOU LAST DRINK? ____ . WHAT DID YOU LAST DRINK? ____ . NAME OF PERSON DRIVING YOU HOME? ____ . DO YOU HAVE ANY OTHER QUESTIONS OR CONCERNS NO . VITAL SIGNS WT 180.6 LBS, HT 62.5 IN, BMI 32.50 INDEX, BP 131/62 MM HG, HR 72 /MIN, RR 18 /MIN, TEMP 98.7 F, OXYGEN SAT % 100%, NA INITIALS 1345, REVIEWED BY: BV. EXAMINATION GENERAL EXAMINATION: GENERALWELL DEVELOPED AND WELL NOURISHED, WELL GROOMED. PSYCHAPPROPRIATE MOOD AND AFFECT , NORMAL SPEECH, GOOD EYE CONTACT. CHEST:NORMAL, SYMMETRICAL. LUNGS:CLEAR TO AUSCULTATION, NO WHEEZES, NO RHONCHI. HEART:NORMAL SINUS RHYTHM. ASSESSMENTS MYALGIA OF MUSCLE OF NECK - M79.18 (PRIMARY) POST LAMINECTOMY SYNDROME - M96.1 TREATMENT MYALGIA OF MUSCLE OF NECK REFILL TRAMADOL HCL TABLET, 50 MG, 1 TABLET NEEDED, ORALLY, Q6-8H PRN PAIN MDD2, 30 DAYS, 60, REFILLS 2 REFILL OXYCODONE-ACETAMINOPHEN TABLET, 10-325 MG, 1 TABLET NEEDED, ORALLY FOR PAIN, Q4-6H PRN MDD5, 30 DAYS, 150, REFILLS 0 CONTINUE ROPINIROLE HCL TABLET, 0.5 MG, TAKE 1 TABLET BY MOUTH 1 TO 3 HOURS BEFORE BEDTIME CONTINUE GABAPENTIN TABLET, 600 MG, 1 CAPSULE, ORALLY, TID CONTINUE DICLOFENAC SODIUM TABLET DELAYED RELEASE, 75 MG, 1 TABLET WITH FOOD OR MILK, ORALLY, TWICE A DAY NOTES: ISTOP REGISTRY REVIEWED AND DEMONSTRATES COMPLLIANCE. BRINGS IN MEDICATIONS WHICH IS APPROPRIATE FOR WHAT WAS DISPENSED. RECENT URINE TOXICOLOGY REVIEWED. NO UNAUTHORIZED MEDICATIONS. NO ILLICIT SUBSTANCES AND PRESCRIBED MEDICATIONS WERE PRESENT. URINE TOX TODAYRISKS OF NARCOTIC/OPIOD MEDICATIONS INCLUDES BUT IS NOT LIMITED TO RISK OF DEPENDANCE/DEVELOPMENT OF ADDICTION, MOOD DISTURBANCE AND DEPRESSION, OSTEOPOROSIS, HORMONAL AND LABIDAL CHANGES, RESPIRATORY DEPRESSION AND . PATIENT IS ADVISED NOT TO DRIVE OR DRINK ALCOHOL WHILE ON THESE MEDICATIONS, . PROCEDURE CODES FA211 ESTABILISHED PATIENT [facility] FACILITY CHARGE DISPOSITION & COMMUNICATION FOLLOW UP 3 MONTHS (REASON: MED MGMNT) ELECTRONICALLY SIGNED BY CHETAN HOWELL ON 07/31/2019 AT 04:05 PM EST DISCLAIMER : THIS IS A VISIT SUMMARY EXTRACTED FROM THE [employer] CHART. IT IS NOT A COPY OF THE [facility] PROGRESS NOTE. MTDD
== END ==
LOC: M PAIN 13:15
PROVIDERS: ATTEND Nurse Practitioner Family
DX: M79.18 Myalgia, other site (principal); M96.1 Postlaminectomy syndrome, not elsewhere classified; K21.9 Gastro-esophageal reflux disease without esophagitis; E03.9 Hypothyroidism, unspecified; G47.00 Insomnia, unspecified; G47.30 Sleep apnea, unspecified; J44.9 Chronic obstructive pulmonary disease, unspecified; Z86.711 Personal history of pulmonary embolism; Z98.84 Bariatric surgery status; Z88.1 Allergy status to other antibiotic agents; Z88.2 Allergy status to sulfonamides; Z88.8 Allergy status to other drugs, medicaments and biological substances; Z79.899 Other long term (current) drug therapy

== ENCOUNTER → 2019-10-12 | Outpatient (CLI) | payer MEDICARE, MEDICAID ==
--- NOTE | 2019-10-16 08:28 | ECWPNPC ---
PATIENT NAME: DARLENE HICKEY : 1955 GENDER: FEMALE VISIT DATE: 10/12/2019 DISCHARGE DATE: 10/12/19 1047 VISIT LOCKED DATE TIME: PHYSICIAN: AMY SHAH RESOURCE: AMY SHAH REASON FOR APPOINTMENT 1. 3 [phone] HISTORY OF PRESENT ILLNESS HISTORY OF PRESENT ILLNESS: DARLENE HAS AGREED TO TELL TELEMED ZOOM VISIT TODAY. SUFFERS FROM CHRONIC NECK PAIN AND GENERALIZED JOINT PAIN WITH A HISTORY OF RHEUMATOID ARTHRITIS. HAS BEEN HAVING A FLAREUP OF NECK PAIN OVER THE PAST MONTH. FOLLOWS WITH NEUROLOGY FOR CHRONIC HEADACHES. FOLLOWS WITH RHEUMATOLOGY. RATING PAIN VAS 6/10. FINDS CURRENT CHRONIC PAIN MEDICATION HELPFUL AT REDUCING PAIN AND KEEPING HER FUNCTIONAL. DENIES ADVERSE SIDE EFFECTS. PAIN THE PATIENT DESCRIBES THE PAIN... FALL RISK SCREENING: SCREENING :NO FALLS REPORTED IN THE LAST YEAR CURRENT MEDICATIONS TAKING DICLO GEL 1 % KIT DIRECTED TRANSDERMAL TAKING PROTONIX 40 MG TABLET DELAYED RELEASE 1 TABLET ORALLY ONCE A DAY TAKING HYDROXYCHLOROQUINE SULFATE 200 MG TABLET 1 TABLET WITH FOOD OR MILK ORALLY ONCE A DAY TAKING DERMOPLAST 20-0.5 % AEROSOL 1 APPLICATION TO AFFECTED AREA NEEDED EXTERNALLY THREE TIMES A DAY TAKING NYSTATIN [id number] UNIT/GM POWDER 1 APPLICATION TO AFFECTED AREA EXTERNALLY TWICE A DAY TAKING VENTOLIN HFA 108 (90 BASE) MCG/ACT AEROSOL SOLUTION 2 PUFFS INHALATION QID PRN TAKING CARAFATE 1 GM TABLET 1 TABLET ORALLY THREE X DAILY TAKING MULTIVITAMINS TABLET 1 TABLET ORALLY ONCE A DAY TAKING FOLIC ACID 1 MG TABLET 1 TABLET ORALLY ONCE A DAY TAKING CYMBALTA 60 MG CAPSULE DELAYED RELEASE PARTICLES 1 CAPSULE ORALLY ONCE A DAY TAKING COLACE 100 MG CAPSULE 1 CAPSULE NEEDED ORALLY TWICE A DAY TAKING LEFLUNOMIDE 20 MG TABLET 1 TABLET ORALLY ONCE A DAY, NOTES: DR. RIVERO/RHEUMATOLOGY TAKING SLOW-MAG 71.5-119 MG TABLET DELAYED RELEASE TAKE 3 TABLETS BY MOUTH ONCE DAILY. ORALLY DAILY TAKING HYDROCHLOROTHIAZIDE 25 MG TABLET 1 TABLET IN THE MORNING ORALLY ONCE A DAY, NOTES: NEEDED TAKING AMBIEN 10 MG TABLET 1 TABLET AT BEDTIME NEEDED ORALLY ONCE A DAY TAKING TRAZODONE HCL 100 MG TABLET 1-2 TABLET AT BEDTIME ORALLY ONCE A DAY TAKING DICLOFENAC SODIUM 75 MG TABLET DELAYED RELEASE 1 TABLET WITH FOOD OR MILK ORALLY TWICE A DAY TAKING HYDROCHLOROTHIAZIDE 25 MG TABLET TAKE 1 TABLET BY MOUTH EVERY MORNING TAKING NU-MAG 71.5-119 MG TABLET DELAYED RELEASE TAKE 3 TABLETS BY MOUTH ONCE DAILY TAKING ROPINIROLE HCL 0.5 MG TABLET TAKE 1 TABLET BY MOUTH 1 TO 3 HOURS BEFORE BEDTIME TAKING GABAPENTIN 600 MG TABLET 1 CAPSULE ORALLY TID TAKING LEVOTHYROXINE SODIUM 25 MCG TABLET TAKE 1 TABLET BY MOUTH EVERY MORNING ON AN EMPTY STOMACH TAKING TRAMADOL HCL 50 MG TABLET 1 TABLET NEEDED ORALLY Q6-8H PRN PAIN MDD2 TAKING OXYCODONE-ACETAMINOPHEN 10-325 MG TABLET 1 TABLET NEEDED ORALLY FOR PAIN Q4-6H PRN MDD5 TAKING MIRTAZAPINE 7.5 MG TABLET 1 TABLET AT BEDTIME ORALLY ONCE A DAY MEDICATION LIST REVIEWED AND RECONCILED WITH THE PATIENT PAST MEDICAL HISTORY HX NECK FUSION HX ULCERS FIBROMYALGIA GERD HYPOTHYROID KNEE PAIN - ARTHRITIS OSTEOARTHRITIS INSOMNIA LOW VITAMIN D DEGENERATIVE DISC DISEASE OBESITY HIGH - 310 DIVERTICULITIS SLEEP APNEA 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 POS COPD HISTORY OF PULMONARY EMBOLISM VERTIGO GASTRIC ULCER ANEURESYM BRAIN STEM RHEUMATOID ARTHRITIS PNEUMONIA ALLERGIES CIPRO: THROAT SWELLING - ALLERGY LYRICA: MEMORY LOSS - SIDE EFFECTS ROBAXIN: RASH - ALLERGY SULFASALAZINE: HIVES - ALLERGY SULFA (FOR ALLERGY USE ONLY): HIVES - SIDE EFFECTS SURGICAL HISTORY EYE OPERATION - LEFT "LAZY EYE" 1964 C - SECTION 1979 C- SECTION 1988 BREAST REDUCTION 1998 GASTRIC BYPASS 2005 GALLBALDDER 2008 CYST REMOVAL (BENIGN) ARM AND BACK 2009 LEFT KNEE SURGERY 2009 RIGHT KNEE SURGERY 2010 HERNIA SURGERY 2010 APPENDECTOMY WITH COMPLICATIONS (COLOSTOMY BAG - REMOVED 10/07) 2010 REMOVED SEVERAL CYSTS FROM COLON AND BREASTS (ABSCESSES) 2010 HERNIAS REPAIRED X 2 09/2011 NECK FUSION C5-6-7-8 2010 UPPER ENDOSCOPY 10/2011 COLONOSCOPY 09/06 EPIDURAL 02/04/15 INCISIONAL HERNIA REPAIR 09/2016 CHANDU BLOCK AT [facility] 2018 FAMILY HISTORY FATHER: , DIAGNOSED WITH DIABETES, OTHER MALIGNANT NEOPLASM OF UNSPECIFIED SITE MOTHER: , DIABETES, OTHER SPECIFIED CONDITIONS INFLUENCING HEALTH STATUS 3 BROTHER(S) . 1 SON(S) , 2 DAUGHTER(S) - HEALTHY. DAUGHTER (HAYDE) WITH RA OR MS. SOCIAL HISTORY GENERAL: TOBACCO USE ARE YOU A:NONSMOKER NEVER A SMOKER HIV / HEP-C SCREENING HIV TEST OFFERED TO PATIENT:YES DATE OFFERED:03/28/2019 TEST ACCEPTED:NO HEP-C TEST OFFERED TO PATIENT:YES DATE OFFERED:03/28/2019 REASON:PATIENT DECLINED TEST ACCEPTED:NO REASON:PATIENT DECLINED BROCHURE PROVIDED TO PATIENTNO LANGUAGE LANGUAGES SPOKEN:MACANESE DOMESTIC VIOLENCE DO YOU FEEL SAFE IN YOUR ENVIRONMENT?YES NEW PATIENT PAIN DIARY TODAY'S VISITNOTES 10/12/2019 PATIENT DESCRIBES PAIN :HAVE IT ALL THE TIME, THROBBING HAVING TO WEAR HER NECK BRACE RECENTLY. FROM 0-10, WHAT LEVEL IS YOUR PAIN TODAY?6 RECREATIONAL DRUG USE DRUG USE?NO LEARNING BARRIERS / SPECIAL NEEDS BARRIERS TO LEARNING?NO HEARING IMPAIRED?NO VISION IMPAIRED?YES COGNITIVELY IMPAIRED?NO :CORRECTIVE LENSES READINESS TO LEARN?YES LEARNING PREFERENCES?NO LEARNING CAPABILITIES PRESENT?YES EMOTIONAL BARRIERS?NO SPECIAL DEVICES?NO WOODEN FURNITURE POLISHER NEEDED?NO PAIN CLINIC PFS, CLERGY, PUBLIC HEALTH REFERRALS PFS REFERRAL NEEDED?NO CLERGY REFERRAL NEEDED?NO PUBLIC HEALTH REFERRAL NEEDED?NO WAS THE PROVIDER NOTIFIED OF ANY PERTINENT INFO?NO HAS THE PATIENT BEEN EDUCATED REGARDING HIS/HER PLAN OF CARE?YES HAS THE PATIENT BEEN EDUCATED REGARDING PAIN, THE RISK FOR PAIN, THE IMPORTANCE OF EFFECTIVE PAIN MANAGEMENT, AND THE PAIN ASSESSMENT PROCESS?YES LATEX QUESTIONNAIRE LATEX ALLERGY : HAVE YOU EVER DEVELOPED ANY TYPE OF REACTION AFTER HANDLING LATEX PRODUCTS SUCH RUBBER GLOVES, CONDOMS, DIAPHRAGMS, BALLOONS, SOCKS, OR UNDERWEAR?NO LATEX ALLERGY : HAVE YOU EVER DEVELOPED ANY TYPE OF REACTION DURING OR AFTER DENTAL APPOINTMENT, VAGINAL/RECTAL EXAMINATION, SURGICAL PROCEDURE, OR ANY OTHER EXPOSURE?NO LATEX RISK : HAVE YOU EVER HAD ANY DIFFICULTY BREATHING OR HIVES AFTER EATING OR HANDLING ANY FRUITS, OR VEGETABLES; SUCH KIWI, BANANAS, STONE FRUITS, OR CHESTNUTSNO LATEX RISK : DO YOU HAVE A PREVIOUS PERSONAL HISTORY OF MORE THAN NINE SURGERIES, SPINA BIFIDA, OR REPEATED CATHERIZATIONS? NO LATEX RISK : ARE YOU FREQUENTLY EXPOSED TO LATEX PRODUCTS IN YOUR OCCUPATION?NO DATE ASKED : 10/12/2019 CAFFEINE CAFFEINE USE?YES HOW OFTEN AND HOW MUCH? DAILY ADVANCE DIRECTIVE ADVANCE DIRECTIVE DISCUSSED WITH PATIENT:YES HCP - REMBERTO LOMAX (GRAND-DAUGHTER) CONFUCIANIST CONFUCIANIST NO SYNAGOGUE BELIEFS THAT WOULD IMPACT HEALTH CARE. ALCOHOL SCREENING DID YOU HAVE A DRINK CONTAINING ALCOHOL IN THE PAST YEAR?NO POINTS0 INTERPRETATIONNEGATIVE SEXUAL HX HAD SEX IN THE LAST 12 MONTHS (VAGINAL, ORAL, OR ANAL)?NO HAVE YOU EVER HAD AN STD?NO HOSPITALIZATION/MAJOR DIAGNOSTIC PROCEDURE COPD FLARE UP X2 05/11 SURGERY SURGERY 10/12 PNEUMONIA/BRONCHITIS CHEST PAIN ([facility]) SEPTEMBER 2017 PNEUMONIA APRIL 2018 DOUBLE PNEUMONIA MAY 2018 PNEUMONIA & KIDNEY INFECTION 06/2019 REVIEW OF SYSTEMS REVIEWED BY: PROVIDER: AMY BENTON . CONSTITUTIONAL: ANY CHANGE IN YOUR MEDICAL CONDITION? NO . CHILLS NO . FEVER NO . INFECTION: DO YOU HAVE NEW INFECTIONS? NO . DO YOU HAVE HISTORY OF MRSA? NO . MUSCULOSKELETAL: ANY NEW PATTERNS OF PAIN OR NUMBNESS? NO . GASTROENTEROLOGY: ANY NEW CHANGE IN BOWEL CONTROL? NO . GENITOURINARY: ANY NEW CHANGE IN BLADDER CONTROL? YES, NO BLADDER CONTROL AT ALL FOR THE PAST 3 MONTHS - WEARING DEPENDS; SUPPOSED TO HAVE A SLING PUT IN SOON . IS THERE A CHANCE YOU COULD BE ? NO . HEMATOLOGY/LYMPH: DO YOU TAKE ANY BLOOD THINNERS? (FOR EXAMPLE- COUMADIN, PLAVIX, AGGRENOX, PLATEL, PRADAXA, OR XARELTO) NO . WHEN WAS YOUR LAST DOSE? DATE: TIME: . NEUROLOGY: HAVE YOU FALLEN IN THE PAST 12 MONTHS? NO . ANY NEW EXTREMITY NUMBNESS OR WEAKNESS? NO . CARDIOLOGY: DO YOU HAVE A PACEMAKER OR DEFIBRILLATOR? NO . RESPIRATORY: HAVE YOU BEEN SICK IN THE PAST WEEK? NO . FEVER NO . FLU LIKE SYMPTOMS? NO . COUGH NO . INTEGUMENTARY: DO YOU HAVE ANY RASHES OR OPEN SORES? NO . ALLERGIC/IMMUNO: ARE YOU ALLERGIC TO IV DYE? NO . ANY NEW ALLERGIES? NO . PSYCHIATRIC: DO YOU HAVE THOUGHTS OF HURTING YOURSELF OR SOMEONE ELSE? NO . ARE YOU ABUSED, NEGLECTED, OR IN AN UNSAFE ENVIRONMENT? NO . ENDOCRINOLOGY: ARE YOU DIABETIC? NO . OTHER: DO YOU NEED ANY PRESCRIPTIONS? NO . IF YES, PLEASE LIST: ____ . ANY NEW PROBLEMS WITH YOUR MEDICATIONS? NO . WHEN DID YOU LAST EAT? ____ . WHEN DID YOU LAST DRINK? ____ . WHAT DID YOU LAST DRINK? ____ . NAME OF PERSON DRIVING YOU HOME? ____ . DO YOU HAVE ANY OTHER QUESTIONS OR CONCERNS NO . EXAMINATION GENERAL EXAMINATION: GENERALNO ACUTE DISTRESS, WELL NOURISHED AND HYDRATED. WEARING NECK BRACE.. PSYCHAPPROPRIATE MOOD AND AFFECT . FACE:UNREMARKABLE. ASSESSMENTS MYALGIA OF MUSCLE OF NECK - M79.18 (PRIMARY) MULTIPLE CHRONIC DISEASES - R69 CHRONIC PRESCRIPTION OPIATE USE - Z79.891 TREATMENT MYALGIA OF MUSCLE OF NECK CONTINUE TRAZODONE HCL TABLET, 100 MG, 1-2 TABLET AT BEDTIME, ORALLY, ONCE A DAY CONTINUE GABAPENTIN TABLET, 600 MG, 1 CAPSULE, ORALLY, TID CONTINUE TRAMADOL HCL TABLET, 50 MG, 1 TABLET NEEDED, ORALLY, Q6-8H PRN PAIN MDD2 CONTINUE OXYCODONE-ACETAMINOPHEN TABLET, 10-325 MG, 1 TABLET NEEDED, ORALLY FOR PAIN, Q4-6H PRN MDD5 NOTES: ISTOP REGISTRY REVIEWED AND DEMONSTRATES COMPLLIANCE. RECENT URINE TOXICOLOGY REVIEWED. NO UNAUTHORIZED MEDICATIONS. NO ILLICIT SUBSTANCES AND PRESCRIBED MEDICATIONS WERE PRESENT. APPROXIMATE TIME SPENT DURING TELEMED VISIT WAS 11 MINUTES. OTHERS NOTES: NO VITALS OBTAINED DUE TO VIRTUAL VISIT. DISPOSITION & COMMUNICATION FOLLOW UP 3 MONTHS (REASON: MED MGMNT/NECK/RHEUMATOID) ELECTRONICALLY SIGNED BY CHETAN HOWELL ON 10/12/2019 AT 11:40 AM EDT DISCLAIMER : THIS IS A VISIT SUMMARY EXTRACTED FROM THE [employer] CHART. IT IS NOT A COPY OF THE [employer] PROGRESS NOTE. MTDD
== END ==
LOC: M PAIN 09:45 → M TMPAIN 09:45
PROVIDERS: ATTEND Nurse Practitioner Family
DX: M79.18 Myalgia, other site (principal); R69 Illness, unspecified; E03.9 Hypothyroidism, unspecified; J44.9 Chronic obstructive pulmonary disease, unspecified; Z79.891 Long term (current) use of opiate analgesic; Z79.899 Other long term (current) drug therapy; Z88.1 Allergy status to other antibiotic agents; Z88.2 Allergy status to sulfonamides; Z88.8 Allergy status to other drugs, medicaments and biological substances

== ENCOUNTER → 2020-01-02 | Outpatient (REF) | payer MEDICARE, MEDICAID ==
[~2020-01-02] MED LIST changes: +ARAV1TAB PO; +AUGM875T28 PO; +CARA1TAB6 PO; +DICL1GEL3; +DICL1GEL3 TOP; +DOCU100C16 PO; +DULO60CA35 PO; +ELIQ5TAB PO; +FOLI1TAB11; +FOLI1TAB11 PO; +GABA600T4; +GABA600T4 PO; +HYDR25TAB; +HYDR25TAB PO; +LEFL20TA10; +MIRT1TAB; +MIRT1TAB PO; +NABU-53 PO; +OXYC10TA3; +PANT40TA29 PO; -PANT40TA3 PO; +PERC10TA26 PO; +PROAAER10 INH; +SLOWTAB2 PO; +SYNT25TA PO; +TRAZ150T90 PO; +TRAZ1TAB14; +VITA50005; +VITA50005 PO; +VITMTA PO; +ZOLP10TA2; +ZOLP10TA2 PO
[2020-01-02 16:56] LABS: BASO # 0.1 10^3/uL (0.0-0.2); EOS # 0.2 10^3/uL (0.0-0.5); EOS % 3.5 % (0.0-3.0); HEMATOCRIT 33.2 % (36.0-47.0); HEMOGLOBIN 10.1 g/dl (12.0-15.5); LYMPH # 2.1 10^3/uL (1.5-5.0); LYMPH % 43.2 % (24.0-44.0); MEAN CORPUSCULAR HGB CONC 30.4 g/dl (32.0-36.5); MEAN CORPUSCULAR VOLUME 95.4 fl (80.0-96.0); MONO # 0.5 10^3/uL (0.0-0.8); MONO % 10.4 % (0.0-5.0); NEUTROPHILS # 2.1 10^3/uL (1.5-8.5); NEUTROPHILS % 41.9 % (36.0-66.0); PLATELET COUNT, AUTOMATED 204 10^3/uL (150-450); RED BLOOD COUNT 3.48 10^6/uL (4.00-5.40); WHITE BLOOD COUNT 4.9 10^3/uL (4.0-10.0)
[2020-01-02 17:20] LABS: ALBUMIN 3.5 GM/DL (3.2-5.2); ALT/SGPT 23 U/L (12-78); BILIRUBIN,TOTAL 0.7 MG/DL (0.2-1.0); BLOOD UREA NITROGEN 16 MG/DL (7-18); CALCIUM LEVEL 8.7 MG/DL (8.8-10.2); CARBON DIOXIDE LEVEL 29 MEQ/L (21-32); CHLORIDE LEVEL 105 MEQ/L (98-107); CHOLESTEROL LEVEL 204 MG/DL (<200); CHOLESTEROL RISK RATIO 4.163 (<5); CREATININE FOR GFR 1.04 MG/DL (0.55-1.30); FERRITIN 84 NG/ML (8-252); GLOMERULAR FILTRATION RATE 56.8 (>45); GLUCOSE, FASTING 127 MG/DL (70-100); HDL CHOLESTEROL 49 MG/DL (>40); IRON (FE) 56 UG/DL (50-170); LDL CHOLESTEROL 115 MG/DL (<100); MAGNESIUM LEVEL 1.6 MG/DL (1.8-2.4); NON-HDL-C 155 MG/DL; PERCENT SATURATION 18.1 % (13.2-45.0); SODIUM LEVEL 139 MEQ/L (136-145); TOTAL IRON BINDING CAPACITY 309 UG/DL (250-450); TOTAL PROTEIN 6.6 GM/DL (6.4-8.2); TRIGLYCERIDES LEVEL 198 MG/DL (<150)
[2020-01-02 17:21] LABS: FOLATE > 24.0 NG/ML (>5.4); TOTAL 25(OH) VITAMIN D 70.2 NG/ML (30.0-100.0); VITAMIN B12 LEVEL 330 PG/ML (247-911)
== END ==
LOC: M SFHCCLAY 10:56
PROVIDERS: ATTEND Nurse Practitioner Family
DX: E78.5 Hyperlipidemia, unspecified (principal); E03.9 Hypothyroidism, unspecified; E55.9 Vitamin D deficiency, unspecified; Z98.890 Other specified postprocedural states; Z79.899 Other long term (current) drug therapy

== ENCOUNTER → 2020-01-11 | Outpatient (CLI) | payer MEDICARE, MEDICAID ==
--- NOTE | 2020-01-16 09:48 | ECWPNPC ---
PATIENT NAME: DARLENE HICKEY : 1955 GENDER: FEMALE VISIT DATE: 01/11/2020 DISCHARGE DATE: 01/11/20 1206 VISIT LOCKED DATE TIME: PHYSICIAN: AMY SHAH RESOURCE: AMY SHAH REASON FOR APPOINTMENT 1. MED MGMNT/NECK/RHEUMATOID/POSSIBLE INJECTIONS HISTORY OF PRESENT ILLNESS GENERAL: HERE FOR FOLLOW-UP OF CHRONIC NECK PAIN. REPORTING INCREASE IN NECK PAIN OVER THE PAST FEW MONTHS. STATES IT'S NEVER BURNED LIKE THIS BEFORE. COMPLAINING OF BURNING PAIN IN THE LEFT NECK AND UPPER BACK. HAS TRIED TRIGGER POINT INJECTIONS IN THE PAST WITHOUT IMPROVEMENT. SHE IS ON HUMIRA. REVIEWED MRI AND DISCUSSED TREATMENT PLAN. -. FALL RISK SCREENING: SCREENING :NO FALLS REPORTED IN THE LAST YEAR PAIN SCREENING: PATIENT HAS A COMPLAINT OF ACUTE OR CHRONIC PAIN :YES LOCATION OF PAIN:NECK NECK AND LEFT SHOULDER, LEFT GILLETTE, LEFT FOOT AND LEFT CALF INTENSITY OF PAIN (SCALE OF 1 TO 10):7 WHAT DOES YOUR PAIN FEEL LIKE:ACHING, THROBBING DURATION:CONTINOUS, CONSTANT, AWAKENS FROM SLEEP PAIN IS INCREASED BY:ACTIVITIES, PROLONGED STANDING PAIN IS DECREASED BY:OTHERS ICE PACK, PILLOWS PAIN HAS INTERFERED WITH THE FOLLOWING:WALKING ABILITY, MOOD, BATHING/DRESSING, SLEEP, RELATIONSHIP WITH OTHERS, ENJOYMENT OF LIFE, FOOD PREPARATION PLAN/GOALS/TREATMENT/INTERVENTION/FOLLOW UP:SEE PLAN NURSING NOTE: -. PAIN CENTER INTAKE QUESTIONS: DO YOU HAVE A HISTORY OF MRSA? :YES DO YOU TAKE A BLOOD THINNERS? :NO DO YOU HAVE ANY BLEEDING DISORDERS? :YES VITAMIN K DEF., H/O DVT/PE ANY NEW NUMBNESS OR WEAKNESS IN YOUR LEGS OR ARMS? :YES LEFT LEG STARTS IN THIGHS RADIATES INTO FOOT AND TOES, DECREASED MOVEMENT IN TOES ANY PACEMAKER,DEFIBRILLATOR, OR DORSAL COLUMN STIMULATOR? :NO DO YOU HAVE ANY RASHES OR OPEN SORES? :NO ARE YOU ALLERGIC TO IV DYE? :NO ARE YOU DIABETIC? :NO ANY NEW PROBLEMS WITH YOUR MEDICATIONS? :NO HAVE YOU RECEIVED A VACCINE IN THE PAST 30 DAYS? :YES IF SO WHAT VACCINE AND WHEN? HUMIRA EVERY TWO WEEKS DO YOU PLAN TO RECEIVE A VACCINE IN THE NEXT 21 DAYS? :YES IF SO WHAT VACCINE AND WHEN? HUMIRA EVERY TWO WEEKS DO YOU NEED ANY PRESCRIPTION? :NO DO YOU TAKE ANY IMMUNOSUPPRESSIVE MEDICATIONS? :YES HUMIRA IS THERE A CHANCE YOU COULD BE ? :NO ARE YOU BREAST FEEDING? :NO CURRENT MEDICATIONS TAKING OXYCODONE-ACETAMINOPHEN 10-325 MG TABLET 1 TABLET NEEDED ORALLY FOR PAIN Q4-6H PRN MDD5 TAKING TRAZODONE HCL 100 MG TABLET 1-2 TABLET AT BEDTIME ORALLY ONCE A DAY TAKING GABAPENTIN 600 MG TABLET 1 CAPSULE ORALLY TID TAKING TRAMADOL HCL 50 MG TABLET 1 TABLET NEEDED ORALLY Q6-8H PRN PAIN MDD2 TAKING HYDROXYCHLOROQUINE SULFATE 200 MG TABLET 1 TABLET WITH FOOD OR MILK ORALLY ONCE A DAY FROM RA TAKING AMBIEN 10 MG TABLET 1 TABLET AT BEDTIME NEEDED ORALLY ONCE A DAY TAKING DICLO GEL 1 % KIT DIRECTED TRANSDERMAL TAKING PROTONIX 40 MG TABLET DELAYED RELEASE 1 TABLET ORALLY ONCE A DAY TAKING DERMOPLAST 20-0.5 % AEROSOL 1 APPLICATION TO AFFECTED AREA NEEDED EXTERNALLY THREE TIMES A DAY TAKING NYSTATIN [id number] UNIT/GM POWDER 1 APPLICATION TO AFFECTED AREA EXTERNALLY TWICE A DAY TAKING CARAFATE 1 GM TABLET 1 TABLET ORALLY THREE X DAILY TAKING MULTIVITAMINS TABLET 1 TABLET ORALLY ONCE A DAY TAKING CYMBALTA 60 MG CAPSULE DELAYED RELEASE PARTICLES 1 CAPSULE ORALLY ONCE A DAY TAKING COLACE 100 MG CAPSULE 1 CAPSULE NEEDED ORALLY TWICE A DAY TAKING LEFLUNOMIDE 20 MG TABLET 1 TABLET ORALLY ONCE A DAY, NOTES: DR. RIVERO/RHEUMATOLOGY TAKING HYDROCHLOROTHIAZIDE 25 MG TABLET TAKE 1 TABLET BY MOUTH EVERY MORNING TAKING LEVOTHYROXINE SODIUM 25 MCG TABLET TAKE 1 TABLET BY MOUTH EVERY MORNING ON AN EMPTY STOMACH TAKING MIRTAZAPINE 7.5 MG TABLET 1 TABLET AT BEDTIME ORALLY ONCE A DAY TAKING FOLIC ACID 1 MG TABLET 1 TABLET ORALLY ONCE A DAY TAKING VENTOLIN HFA 108 (90 BASE) MCG/ACT AEROSOL SOLUTION 2 PUFFS INHALATION QID PRN TAKING VITAMIN D (ERGOCALCIFEROL) 1.25 MG (97370 UT) CAPSULE 1 CAPSULE ORALLY NOT-TAKING CYCLOBENZAPRINE HCL 10 MG TABLET 1 TABLET AT BEDTIME NEEDED ORALLY THREE TIMES DAILY NEEDED NOT-TAKING SLOW-MAG 71.5-119 MG TABLET DELAYED RELEASE TAKE 3 TABLETS BY MOUTH ONCE DAILY. 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 POS COPD HISTORY OF PULMONARY EMBOLISM VERTIGO GASTRIC ULCER ANEURESYM BRAIN STEM RHEUMATOID ARTHRITIS PNEUMONIA ALLERGIES CIPRO: THROAT SWELLING - ALLERGY LYRICA: MEMORY LOSS - SIDE EFFECTS ROBAXIN: RASH - ALLERGY SULFASALAZINE: HIVES - ALLERGY SULFA (FOR ALLERGY USE ONLY): HIVES - SIDE EFFECTS SURGICAL HISTORY EYE OPERATION - LEFT "LAZY EYE" 1964 C - SECTION 1979 C- SECTION 1988 BREAST REDUCTION 1998 GASTRIC BYPASS 2005 GALLBALDDER 2007 CYST REMOVAL (BENIGN) ARM AND BACK 2008 LEFT KNEE SURGERY 2008 RIGHT KNEE SURGERY 2009 HERNIA SURGERY 2009 APPENDECTOMY WITH COMPLICATIONS (COLOSTOMY BAG - REMOVED 10/07) 2010 REMOVED SEVERAL CYSTS FROM COLON AND BREASTS (ABSCESSES) 2010 HERNIAS REPAIRED X 2 09/2011 NECK FUSION C5-6-7-8 2010 UPPER ENDOSCOPY 10/2011 COLONOSCOPY 09/06 EPIDURAL 02/04/15 INCISIONAL HERNIA REPAIR 09/2016 CHANDU BLOCK AT [facility] 2018 CATARACTS FAMILY HISTORY FATHER: , DIAGNOSED WITH OTHER MALIGNANT NEOPLASM OF UNSPECIFIED SITE, DIABETES MOTHER: , OTHER SPECIFIED CONDITIONS INFLUENCING HEALTH STATUS, DIABETES 3 BROTHER(S) . 1 SON(S) , 2 DAUGHTER(S) - HEALTHY. DAUGHTER (HAYDE) WITH RA OR MS. SOCIAL HISTORY GENERAL: TOBACCO USE ARE YOU A:NONSMOKER NEVER A SMOKER LATEX QUESTIONNAIRE LATEX ALLERGY : HAVE YOU EVER DEVELOPED ANY TYPE OF REACTION AFTER HANDLING LATEX PRODUCTS SUCH RUBBER GLOVES, CONDOMS, DIAPHRAGMS, BALLOONS, SOCKS, OR UNDERWEAR?NO LATEX ALLERGY : HAVE YOU EVER DEVELOPED ANY TYPE OF REACTION DURING OR AFTER DENTAL APPOINTMENT, VAGINAL/RECTAL EXAMINATION, SURGICAL PROCEDURE, OR ANY OTHER EXPOSURE?NO LATEX RISK : HAVE YOU EVER HAD ANY DIFFICULTY BREATHING OR HIVES AFTER EATING OR HANDLING ANY FRUITS, OR VEGETABLES; SUCH KIWI, BANANAS, STONE FRUITS, OR CHESTNUTSNO LATEX RISK : DO YOU HAVE A PREVIOUS PERSONAL HISTORY OF MORE THAN NINE SURGERIES, SPINA BIFIDA, OR REPEATED CATHERIZATIONS? NO LATEX RISK : ARE YOU FREQUENTLY EXPOSED TO LATEX PRODUCTS IN YOUR OCCUPATION?NO DATE ASKED : 01/11/2020 LUNG CANCER SCREENING SMOKING STATUS:NON SMOKER ALCOHOL SCREENING DID YOU HAVE A DRINK CONTAINING ALCOHOL IN THE PAST YEAR?NO POINTS0 INTERPRETATIONNEGATIVE RECREATIONAL DRUG USE DRUG USE?NO CAFFEINE CAFFEINE USE?YES HOW OFTEN AND HOW MUCH? DAILY SEXUAL HX HAD SEX IN THE LAST 12 MONTHS (VAGINAL, ORAL, OR ANAL)?NO HAVE YOU EVER HAD AN STD?NO HIV / HEP-C SCREENING HIV TEST OFFERED TO PATIENT:YES DATE OFFERED:03/28/2019 TEST ACCEPTED:NO HEP-C TEST OFFERED TO PATIENT:YES DATE OFFERED:03/28/2019 REASON:PATIENT DECLINED TEST ACCEPTED:NO REASON:PATIENT DECLINED BROCHURE PROVIDED TO PATIENTNO NONDENOMINATIONAL NONDENOMINATIONAL NO SCIENTOLOGY BELIEFS THAT WOULD IMPACT HEALTH CARE. LANGUAGE LANGUAGES SPOKEN:CHINESE LEARNING BARRIERS / SPECIAL NEEDS CHANGE FROM LAST VISIT?NO BARRIERS TO LEARNING?NO HEARING IMPAIRED?NO VISION IMPAIRED?YES :CORRECTIVE LENSES COGNITIVELY IMPAIRED?NO READINESS TO LEARN?YES LEARNING PREFERENCES?NO LEARNING CAPABILITIES PRESENT?YES EMOTIONAL BARRIERS?NO SPECIAL DEVICES?NO CHIEF OPERATOR HYDROFORMER NEEDED?NO DOMESTIC VIOLENCE DO YOU FEEL SAFE IN YOUR ENVIRONMENT?YES PAIN CLINIC PFS, CLERGY, PUBLIC HEALTH REFERRALS PFS REFERRAL NEEDED?NO CLERGY REFERRAL NEEDED?NO PUBLIC HEALTH REFERRAL NEEDED?NO WAS THE PROVIDER NOTIFIED OF ANY PERTINENT INFO?NO HAS THE PATIENT BEEN EDUCATED REGARDING HIS/HER PLAN OF CARE?YES HAS THE PATIENT BEEN EDUCATED REGARDING PAIN, THE RISK FOR PAIN, THE IMPORTANCE OF EFFECTIVE PAIN MANAGEMENT, AND THE PAIN ASSESSMENT PROCESS?YES ADVANCE DIRECTIVE ADVANCE DIRECTIVE DISCUSSED WITH PATIENT:YES HCP - REMBERTO LOMAX (GRAND-DAUGHTER) HOSPITALIZATION/MAJOR DIAGNOSTIC PROCEDURE COPD FLARE UP X2 05/11 SURGERY SURGERY 10/12 PNEUMONIA/BRONCHITIS CHEST PAIN ([facility]) SEPTEMBER 2017 PNEUMONIA APRIL 2018 DOUBLE PNEUMONIA MAY 2018 PNEUMONIA & KIDNEY INFECTION 06/2019 ER VISIT [facility] - LEG PAIN 12/22/19 REVIEW OF SYSTEMS CONSTITUTIONAL: ANY RECENT FEVER NO . CHILLS NO . WEIGHT CHANGE OF UNKNOWN REASONS NO . GASTROENTEROLOGY: NEW UNEXPLAINABLE CHANGES IN BOWEL CONTROL NO . CONSTIPATION NO . GENITOURINARY: ANY NEW CHANGE IN BLADDER CONTROL? NO . NEUROLOGY: NEW ONSET DIZZINESS OR NEUROLOGICAL CHANGES NOT MENTIONED NO . NEW NUMBNESS OR PAIN PATTERNS NOT MENTIONED AND PERTINENT TO TODAY'S VISIT NO . CARDIOLOGY: NEW CHEST PRESSURE NO . NEW CHEST PAIN NO . RESPIRATORY: UNEXPLAINABLE COUGH NO . NEW SHORTNESS OF BREATH NO . VITAL SIGNS WT 184.6 LBS, HT 62.5 IN, BMI 33.22 INDEX, BP 133/74 MM HG, HR 76 /MIN, RR 18 /MIN, TEMP 96.8 F, OXYGEN SAT % 94%, NA INITIALS AW 1110, REVIEWED BY: MT. EXAMINATION GENERAL EXAMINATION: GENERALWELL DEVELOPED AND WELL NOURISHED, WELL GROOMED. PSYCHAPPROPRIATE MOOD AND AFFECT , NORMAL SPEECH, GOOD EYE CONTACT. CHEST:NORMAL, SYMMETRICAL. LUNGS:CLEAR TO AUSCULTATION, NO WHEEZES, NO RHONCHI. HEART:NORMAL SINUS RHYTHM. 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 BRINGS IN MEDICATIONS WHICH IS APPROPRIATE FOR WHAT WAS DISPENSED. RECENT URINE TOXICOLOGY REVIEWED. NO UNAUTHORIZED MEDICATIONS. NO ILLICIT SUBSTANCES AND PRESCRIBED MEDICATIONS WERE PRESENT. GET UTOX NEXT VISIT , RISKS OF NARCOTIC/OPIOD MEDICATIONS INCLUDES BUT IS NOT LIMITED TO RISK OF DEPENDANCE/DEVELOPMENT OF ADDICTION, MOOD DISTURBANCE AND DEPRESSION, OSTEOPOROSIS, HORMONAL AND LABIDAL CHANGES, RESPIRATORY DEPRESSION AND . PATIENT IS ADVISED NOT TO DRIVE OR DRINK ALCOHOL WHILE ON THESE MEDICATIONS. PROCEDURE CODES [id number] ESTABILISHED PATIENT [facility] FACILITY CHARGE DISPOSITION & COMMUNICATION FOLLOW UP 2 MONTHS (REASON: REVIEW CRVICAL MRI/URINE TOX) ELECTRONICALLY SIGNED BY CHETAN HOWELL ON 01/15/2020 AT 09:55 AM EDT DISCLAIMER : THIS IS A VISIT SUMMARY EXTRACTED FROM THE [employer] CHART. IT IS NOT A COPY OF THE [employer] PROGRESS NOTE. YURIY
== END ==
LOC: M PAIN 11:00
PROVIDERS: ATTEND Nurse Practitioner Family
DX: M79.18 Myalgia, other site (principal); M47.22 Other spondylosis with radiculopathy, cervical region

== ENCOUNTER → 2020-01-26 | Outpatient (POV) | payer MEDICARE, MEDICAID | LOC: M PAIN 11:15 | PROVIDERS: ATTEND Nurse Practitioner Family | DX: M54.5 Low back pain (principal) ==

== ENCOUNTER → 2020-02-01 | Outpatient (CLI) | payer MEDICARE, MEDICAID ==
[~2020-02-01] MED LIST changes: +PROHANCE 279.3MG/ML 15ML VIAL As Ordered ONE; +PROHANCE 279.3MG/ML 5ML VIAL As Ordered ONE
== END ==
LOC: M RAD 13:00
PROVIDERS: ATTEND Nurse Practitioner Family
DX: M50.31 Other cervical disc degeneration, high cervical region (principal); M50.321 Other cervical disc degeneration at C4-C5 level; M50.322 Other cervical disc degeneration at C5-C6 level; M79.18 Myalgia, other site; M43.22 Fusion of spine, cervical region; M25.78 Osteophyte, vertebrae
CPT/HCPCS: 72156; A9576

== ENCOUNTER 2020-02-15 16:30 | Inpatient (IN) | payer MEDICARE, MEDICAID ==
[~2020-02-15] VITALS: Ht 157.5 cm; Wt 82.5 kg
[~2020-02-15 16:30] MED LIST changes: -ARAV1TAB PO; -AUGM875T28 PO; -CARA1TAB6 PO; -DICL1GEL3; -DICL1GEL3 TOP; -DOCU100C16 PO; -DULO60CA35 PO; -ELIQ5TAB PO; -FOLI1TAB11; -FOLI1TAB11 PO; -GABA600T4; -GABA600T4 PO; -HYDR25TAB; -HYDR25TAB PO; -LEFL20TA10; -MIRT1TAB; -MIRT1TAB PO; -NABU-53 PO; -OXYC10TA3; -PERC10TA26 PO; -PROAAER10 INH; -PROHANCE 279.3MG/ML 15ML VIAL As Ordered ONE; -PROHANCE 279.3MG/ML 5ML VIAL As Ordered ONE; -SLOWTAB2 PO; -SYNT25TA PO; -TRAZ150T90 PO; -TRAZ1TAB14; -VITA50005; -VITA50005 PO; -VITMTA PO; -ZOLP10TA2; -ZOLP10TA2 PO
[2020-02-15] MEDS ORDERED: LEFL20TA10 (18:31)
[2020-02-15] MEDS ORDERED: MIRT1TAB (18:31)
[2020-02-15] MEDS ORDERED: ZOLP10TA2 (18:31)
[2020-02-15] MEDS ORDERED: CARA1TAB6 PO ×2 (18:31→22:42)
[2020-02-15] MEDS ORDERED: OXYC10TA3 (18:31)
[2020-02-15] MEDS ORDERED: GABA600T4 (18:31)
[2020-02-15] MEDS ORDERED: VITA50005 (18:31)
[2020-02-15] MEDS ORDERED: SLOWTAB2 PO (18:31)
[2020-02-15] MEDS ORDERED: FOLI1TAB11 (18:31)
[2020-02-15] MEDS ORDERED: HYDR25TAB (18:31)
[2020-02-15] MEDS ORDERED: TRAZ1TAB14 (18:31)
[2020-02-15] MEDS ORDERED: DICL1GEL3 (18:31)
[2020-02-15] MEDS ORDERED: NS 1,000 ML IV ONE (20:00)
[2020-02-15] MEDS ORDERED: MORPHINE 4 MG/ML 1ML VIAL/SYRINGE (J2270) IV ONE (20:00)
[2020-02-15 20:40] LABS: BASO % 0.7 % (0.0-1.0); EOS # 0.1 10^3/uL (0.0-0.5); EOS % 2.2 % (0.0-3.0); HEMATOCRIT 33.5 % (36.0-47.0); HEMOGLOBIN 10.8 g/dl (12.0-15.5); LYMPH # 2.2 10^3/uL (1.5-5.0); LYMPH % 40.1 % (24.0-44.0); MEAN CORPUSCULAR HEMOGLOBIN 29.4 pg (27.0-33.0); MEAN CORPUSCULAR HGB CONC 32.2 g/dl (32.0-36.5); MEAN CORPUSCULAR VOLUME 91.3 fl (80.0-96.0); MONO # 0.4 10^3/uL (0.0-0.8); MONO % 8.1 % (0.0-5.0); NEUTROPHILS # 2.7 10^3/uL (1.5-8.5); NEUTROPHILS % 48.7 % (36.0-66.0); PLATELET COUNT, AUTOMATED 212 10^3/uL (150-450); RED BLOOD COUNT 3.67 10^6/uL (4.00-5.40); WHITE BLOOD COUNT 5.5 10^3/uL (4.0-10.0)
--- NOTE | 2020-02-15 20:59 | REPVR ---
PROCEDURE INFORMATION: Exam: US Duplex Left Lower Extremity Veins, Limited Exam date and time: 02/15/2020 8:49 PM Age: 64 years old Clinical indication: Pain; Leg, upper and leg, lower and foot; Left; Additional info: R/O dvt, pain TECHNIQUE: Imaging protocol: Real-time Duplex ultrasound of the Left Lower Extremity with 2-D perez scale, color Doppler flow and spectral waveform analysis with image documentation. Limited exam focused on the left lower extremity veins. COMPARISON: No relevant prior studies available. FINDINGS: Left deep veins: Unremarkable. The common femoral, femoral, proximal profunda femoral and popliteal veins are patent without thrombus. Normal Doppler waveforms. Normal compressibility and/or augmentation response. Left superficial veins: Unremarkable. Saphenofemoral junction is patent without thrombus. Soft tissues: Complex popliteal fossa cyst measures 3.9 x 6.2 x 3.4 cm. IMPRESSION: Complex popliteal fossa cyst measures 3.9 x 6.2 x 3.4 cm. No DVT. Electronically signed by: Norman Keane On 02/15/2020 20:59:11 PM
[2020-02-15 21:15] LABS: ALBUMIN 3.9 GM/DL (3.2-5.2); ALT/SGPT 18 U/L (12-78); BILIRUBIN,DIRECT 0.1 MG/DL (0.0-0.2); BILIRUBIN,TOTAL 0.6 MG/DL (0.2-1.0); BLOOD UREA NITROGEN 13 MG/DL (7-18); C REACTIVE PROTEIN QUANTITATIV < 0.30 MG/DL (0.00-0.30); CALCIUM LEVEL 9.2 MG/DL (8.8-10.2); CARBON DIOXIDE LEVEL 29 MEQ/L (21-32); CHLORIDE LEVEL 107 MEQ/L (98-107); CREATININE FOR GFR 1.07 MG/DL (0.55-1.30); GLUCOSE, FASTING 97 MG/DL (70-100); POTASSIUM SERUM 4.1 MEQ/L (3.5-5.1); SODIUM LEVEL 137 MEQ/L (136-145); TOTAL PROTEIN 7.2 GM/DL (6.4-8.2)
[2020-02-15 21:30] LABS: ERYTHROCYTE SEDIMENTATION RATE 14 mm/hr (0-30)
[2020-02-15] MEDS ORDERED: FOLI1TAB11 PO (22:42)
[2020-02-15] MEDS ORDERED: SYNT25TA PO (22:42)
[2020-02-15] MEDS ORDERED: VITA50005 PO (22:42)
[2020-02-15] MEDS ORDERED: MIRT1TAB PO (22:42)
[2020-02-15] MEDS ORDERED: VITMTA PO (22:42)
[2020-02-15] MEDS ORDERED: NABU-53 PO (22:42)
[2020-02-15] MEDS ORDERED: HYDR25TAB PO (22:42)
[2020-02-15] MEDS ORDERED: TRAZ150T90 PO (22:42)
[2020-02-15] MEDS ORDERED: ZOLP10TA2 PO (22:42)
[2020-02-15] MEDS ORDERED: ARAV1TAB PO (22:42)
[2020-02-15] MEDS ORDERED: DULO60CA35 PO (22:42)
[2020-02-15] MEDS ORDERED: GABA600T4 PO (22:42)
[2020-02-15] MEDS ORDERED: AUGM875T28 PO (22:42)
[2020-02-15] MEDS ORDERED: PROAAER10 INH (22:42)
[2020-02-15] MEDS ORDERED: PERC10TA26 PO (22:42)
[2020-02-15] MEDS ORDERED: DICL1GEL3 TOP (22:42)
[2020-02-15] MEDS ORDERED: AMITRIPTYLINE 25 MG TAB PO ONE (23:45)
[2020-02-15] MEDS ORDERED: MOM 30ML SUSPENSION UDC PO PRN (23:45)
[2020-02-15] MEDS ORDERED: ALBUTEROL 90 MCG/ACT 8GM HFA INHALER INH PRN (23:45)
[2020-02-15] MEDS ORDERED: MAALOX 30 ML SUSP *UDC PO PRN (23:45)
[2020-02-15] MEDS ORDERED: KETOROLAC 30 MG/ML 1ML VIAL IV ONE (23:45)
--- NOTE | 2020-02-15 23:54 | HPEPDOC ---
General Date of Admission 02/15/20 Date of Service: Feb 15, 2020 Chief Complaint The patient is a 64-year-old female admitted with a reason for visit of Left Foot Problem. Source: Patient, RN/MD History of Present Illness 64 year old female with Rheumatoid arthritis, osteoarthritis, fibromyalgia, chronic neck and back pain follows at pain clinic, obesity, HOPE, COPD, GERD, hypothyroid, peptic ulcer disease presented to ED for left foot and toe pain. Patient reported that left foot has nerve damage and she reported that all the toes on the left foot has been extremely painful with pain extending up the foot to the leg. The pain started on November 17 and the pain has been increasing since then. It is 10/10, burning and stinging in character, and has numbness of the foot. She was seen by pain clinic last week and told to come to ED but she did not want to come. She was and started on antibiotics by PMD and was seen today for follow up and then sent to the ED for evaluation for DVT. US of the leg shows a popiteal cyst but no DVT. She is admitted for pain control and evaluation of the toe and foot pain. Home Medications Scheduled Apixaban (Eliquis) 5 Mg Tablet, 5 MG PO BID Docusate Sodium (Docusate Sodium) 100 Mg Capsule, 100 MG PO BID Duloxetine HCl (Duloxetine HCl) 60 Mg Capsule.dr, 60 MG PO DAILY, (Reported) Ergocalciferol (Vitamin D2) (Vitamin D2) 50,000 Units Cap, 50,000 UNITS PO 2XWK, (Reported) WEDNESDAY AND WEDNESDAY Folic Acid (Folic Acid) 1 Mg Tablet, 1 MG PO DAILY, (Reported) Gabapentin (Gabapentin) 600 Mg Tablet, 600 MG PO TID, (Reported) Leflunomide (Arava) 10 Mg Tablet, 10 MG PO DAILY, (Reported) Levothyroxine Sodium (Synthroid) 25 Mcg Tablet, 25 MCG PO DAILY, (Reported) Mirtazapine (Mirtazapine) 7.5 Mg Tablet, 7.5 MG PO QHS, (Reported) Multivitamins (Thera M Plus Tablet) 1 Each Tablet, 1 TAB PO DAILY, (Reported) Pantoprazole Sodium (Pantoprazole Sodium) 40 Mg Tab, 40 MG PO DAILY, (Reported) Sucralfate (Carafate) 1 Gm Tablet, 1 GM PO TID, (Reported) 4 times per day take on an empty stomach Trazodone HCl (Trazodone HCl) 150 Mg Tablet, 300 MG PO QHS, (Reported) Zolpidem Tartrate (Zolpidem Tartrate) 10 Mg Tablet, 10 MG PO QHS, (Reported) Scheduled PRN Albuterol Sulfate (Proair Hfa) 8.5 Gm Hfa.aer.ad, 2 PUFF INH Q4H PRN for SHORTNESS OF BREATH, (Reported) Oxycodone HCl/Acetaminophen (Percocet 10-325 mg Tablet) 1 Each Tablet, 1 TAB PO Q4H PRN for PAIN, (Reported) Tramadol HCl (Tramadol HCl) 50 Mg Tab, 50 MG PO BID PRN for PAIN, (Reported) Allergies Coded Allergies: ciprofloxacin (Verified Allergy, Severe, ANGIOEDEMA, 02/15/20) Sulfa (Sulfonamide Antibiotics) (Verified Allergy, Intermediate, HIVES, 02/15/20) ropinirole (Verified Allergy, Intermediate, RASH, 02/15/20) sulfasalazine (Verified Allergy, Intermediate, HIVES, 02/15/20) methocarbamol (Verified Allergy, Mild, RASH, 02/15/20) pregabalin (Verified Adverse Reaction, Intermediate, MEMORY LOSS, 02/15/20) Past Medical History Medical History RHEUMATOID ARTHRITIS HX NECK FUSION FIBROMYALGIA GERD HYPOTHYROID OSTEOARTHRITIS INSOMNIA LOW VITAMIN D DEGENERATIVE DISC DISEASE OBESITY DIVERTICULITIS SLEEP APNEA WYMAN'S PALSY 2007 COPD HISTORY OF PULMONARY EMBOLISM VERTIGO GASTRIC ULCER ANEURYSM BRAIN STEM Surgical History EYE OPERATION - LEFT "LAZY EYE" 1964 C - SECTION 1979 C- SECTION 1988 BREAST REDUCTION 1998 GASTRIC BYPASS 2005 GALLBALDDER 2008 CYST REMOVAL (BENIGN) ARM AND BACK 2008 LEFT KNEE SURGERY 2009 RIGHT KNEE SURGERY 2010 HERNIA SURGERY 2009 APPENDECTOMY WITH COMPLICATIONS (COLOSTOMY BAG - REMOVED 10/07) 2010 REMOVED SEVERAL CYSTS FROM COLON AND BREASTS (ABSCESSES) 2010 HERNIAS REPAIRED X 2 09/2011 NECK FUSION C5-6-7-8 2011 EPIDURAL 02/04/15 INCISIONAL HERNIA REPAIR 09/2016 NERVE BLOCK AT [facility] 2018 Family History FATHER: , DIAGNOSED WITH DIABETES, OTHER MALIGNANT NEOPLASM OF UNSPECIFIED SITE MOTHER: , DIABETES, DAUGHTER (HAYDE) WITH RA OR MS. Social History * Smoker: non-smoker Alcohol: Denies Drugs: denies A-FIB/CHADSVASC A-FIB History Current/History of A-Fib/PAF?: No Physical Examination General Exam: Positive: Alert, Cooperative, No Acute Distress Eye Exam: Positive: PERRLA, Conjunctiva & lids normal, EOMI; Negative: Sclera icteric ENT Exam: Positive: Atraumatic, Mucous membr. moist/pink, Pharynx Normal Neck Exam: Positive: Supple; Negative: JVD, thyromegaly Chest Exam: Positive: Clear to auscultation, Normal air movement Heart Exam: Positive: Rate Normal, Regular Rhythm, Normal S1, Normal S2; Negative: Murmurs, Rubs Abdomen Exam: Positive: Normal bowel sounds, Soft; Negative: Tenderness, Hepatospenomegaly Extremity Exam: Positive: Tenderness Skin Exam: Positive: Other skin issue (left toes are pale, shinny, loss of hair. ) Neuro Exam: Positive: Normal Speech, Strength at 5/5 X4 ext, Normal Tone Psych Exam: Positive: Memory Intact, Oriented x 3 Vital Signs Vital Signs Date Time Temp Pulse Resp B/P (MAP) Pulse Ox O2 Delivery O2 Flow Rate FiO2 02/15/20 22:38 18 02/15/20 22:37 66 145/82 (103) 96 Room Air 02/15/20 16:31 97.2 Laboratory Data Labs 24H Laboratory Tests 2 02/15/20 20:17: Immature Granulocyte % (Auto) 0.2, Neutrophils (%) (Auto) 48.7, Lymphocytes (%) (Auto) 40.1, Monocytes (%) (Auto) 8.1H, Eosinophils (%) (Auto) 2.2, Basophils (%) (Auto) 0.7, Neutrophils # (Auto) 2.7, Lymphocytes # (Auto) 2.2, Monocytes # (Auto) 0.4, Eosinophils # (Auto) 0.1, Basophils # (Auto) 0.0, Nucleated Red Blood Cells % (auto) 0.0, Erythrocyte Sedimentation Rate 14, Anion Gap 1L, Glom erular Filtration Rate 55.0, Lactic Acid Level 0.7, Calcium Level 9.2, Total Bilirubin 0.6, Direct Bilirubin 0.1, Aspartate Amino Transf (AST/SGOT) 30, Alanine Aminotransferase (ALT/SGPT) 18, Alkaline Phosphatase 91, C-Reactive Protein, Quantitative < 0.30, Total Protein 7.2, Albumin 3.9, Albumin/Globulin Ratio 1.2 CBC/BMP Laboratory Tests 02/15/20 20:17 Microbiology Microbiology 02/15/20 Blood Culture, Received Pending Assessment/Plan 64 year old female with Rheumatoid arthritis, osteoarthritis, fibromyalgia, chronic neck and back pain follows at pain clinic, obesity, HOPE, COPD, GERD, hypothyroid, peptic ulcer disease presented to ED for left foot and toe pain. Patient reported that left foot has nerve damage and she reported that all the toes on the left foot has been extremely painful with pain extending up the foot to the leg. The pain started on November 17 and the pain has been increasing since then. It is 10/10, burning and stinging in character, and has numbness of the foot. She was seen by pain clinic last week and told to come to ED but she did not want to come. She was and started on antibiotics by PMD and was seen today for follow up and then sent to the ED for evaluation for DVT. US of the leg shows a popiteal cyst but no DVT. She is admitted for pain control and evaluation of the toe and foot pain. Toe and foot pain has nerve damage reported by pt. May have RSDS/ leg ischemia consider consulting neurology/ vascular pain control with IV toradol, IV dilaudid, morphine immediate release, gabapentin, amitriptyline RA/Fibromyalgia continue home meds Hypothyroid synthroid COPD albuterol prn Hypertension HCTZ. GERD/Peptic ulcer disease continue PPI. Plan / VTE VTE Prophylaxis Ordered?: Yes FLORENTIN BALDERAS MD Feb 15, 2020 23:18
[2020-02-16] MEDS ORDERED: PILL CUTTER 1 EACH XX PRN (00:30)
[2020-02-16] MEDS: traZODone 100 MG TAB PO SCH ×2 (00:47→21:00)
[2020-02-16] MEDS: PANTOPRAZOLE 40MG TAB (PROTONIX) PO SCH ×3 (00:47→19:54)
[2020-02-16] MEDS: DOCUSATE SODIUM 100 MG CAP PO SCH ×3 (00:48→19:54)
[2020-02-16] MEDS: HYDROMORPHONE HCL 0.5 MG/ 0.5 ML SYRINGE (J1170 PER 1) IV PRN ×3 (00:56→16:30)
[2020-02-16] MEDS: MIRTAZAPINE 7.5MG PER 1/2 TABLET PO SCH ×2 (03:03→21:00)
[2020-02-16 06:00] VITALS: BP 130/70
[2020-02-16] MEDS: LEVOTHYROXINE 25MCG TABLET (0.025MG) PO SCH (06:48)
[2020-02-16] MEDS: MORPHINE 30 MG TAB **MSIR PO PRN ×2 (06:49→19:54)
[2020-02-16] MEDS ORDERED: KETOROLAC 30 MG/ML 1ML VIAL IV SCH (08:00)
[2020-02-16 08:03] LABS: HEMATOCRIT 31.3 % (36.0-47.0); HEMOGLOBIN 10.5 g/dl (12.0-15.5); MEAN CORPUSCULAR HEMOGLOBIN 30.1 pg (27.0-33.0); MEAN CORPUSCULAR HGB CONC 33.5 g/dl (32.0-36.5); MEAN CORPUSCULAR VOLUME 89.7 fl (80.0-96.0); PLATELET COUNT, AUTOMATED 185 10^3/uL (150-450); RED BLOOD COUNT 3.49 10^6/uL (4.00-5.40); WHITE BLOOD COUNT 4.9 10^3/uL (4.0-10.0)
[2020-02-16 08:22] LABS: CALCIUM LEVEL 8.6 MG/DL (8.8-10.2); CREATININE FOR GFR 1.02 MG/DL (0.55-1.30); GLOMERULAR FILTRATION RATE 58.1 (>45); POTASSIUM SERUM 3.7 MEQ/L (3.5-5.1)
[2020-02-16] MEDS: MULTIVITAMINS/MINERALS THERAP 1 TAB PO SCH (08:32)
[2020-02-16] MEDS: SUCRALFATE 1 GM TAB PO SCH ×3 (08:33→19:54)
[2020-02-16] MEDS: FOLIC ACID 1 MG TAB PO SCH (08:34)
[2020-02-16] MEDS: hydroCHLOROthiazide 25 MG TAB PO SCH (08:34)
[2020-02-16] MEDS: AMITRIPTYLINE 25 MG TAB PO SCH ×2 (08:34→19:53)
[2020-02-16] MEDS: GABAPENTIN 300 MG CAP PO SCH ×3 (08:35→19:54)
[2020-02-16] MEDS: DULoxetine 30 MG CAP (CYMBALTA) PO SCH (08:35)
[2020-02-16] MEDS ORDERED: PANTOPRAZOLE 40MG TAB (PROTONIX) PO SCH (09:00)
[2020-02-16] MEDS ORDERED: ENOXAPARIN 40MG/0.4ML SYRINGE (J1650 PER 10MG) SC SCH (09:00)
[2020-02-16] MEDS ORDERED: ISOVUE-370 76% 100ML VIAL As Ordered ONE (12:00)
--- NOTE | 2020-02-16 12:08 | IPNPDOC ---
Text Note Date of Service The patient was seen on 02/16/20. NOTE Subjective: Pt has been having left foot/LE pain since October, however has noticed foot discoloration and increased pain since 3 weeks ago. Pt also has radiculopathy and lower back pain since october and has been following with ortho; had MRI l spine outpt. Objective: Vitals: (see below) General: No acute distress, laying comfortably in bed. HEENT: Moist mucous membranes. Neck: No JVD or lymphadenopathy Cardiac: RRR, No murmurs Pulm: Clear to auscultation b/l. No wheezing, rhonchi Abd: NT/ND + BS Ext: Left foot with diminished pulses L>R. Skin discoloration. TTP with minimal palpation. Labs (see below) U/S LE negative for dvt; has bakers cyst. 64 year old female with Rheumatoid arthritis, osteoarthritis, fibromyalgia, chronic neck and back pain follows at pain clinic, obesity, HOPE, COPD, GERD, hypothyroid, peptic ulcer disease presented to ED for left foot and toe pain. Patient reported that left foot has nerve damage and she reported that all the toes on the left foot has been extremely painful with pain extending up the foot to the leg. The pain started on November 17 and the pain has been increasing since then. It is 10/10, burning and stinging in character, and has numbness of the foot. She was seen by pain clinic last week and told to come to ED but she did not want to come. She was and started on antibiotics by PMD and was seen today for follow up and then sent to the ED for evaluation for DVT. US of the leg shows a popiteal cyst but no DVT. She is admitted for pain control and evaluation of the toe and foot pain. Ischemic leg - CTA (see above) - Discussed with Dr. Blanco; pt likely need tpa; to be done on Wednesday. In the meantime, can start heparin drip. Discussed with Dr. 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 Will send pt for MRA Head without contrast to re-eval aneurysm. - Discussed risks of bleeding, and she is agreeable with anticoagulation with heparin drip and thrombolysis on wednesday. - CTA abd/LE to r/o ischemic leg - Ortho consult for Back pain with Radiculopathy - Starts recently had MRI L spine; will obtain records - pain control with IV dilaudid, morphine immediate release, gabapentin, amitriptyline RA/Fibromyalgia continue home meds Hypothyroid synthroid COPD albuterol prn Hypertension HCTZ. GERD/Peptic ulcer disease continue PPI. DVT Prophy Lovenox VS,Fishbone, I+O VS, Fishbone, I+O Laboratory Tests 02/15/20 20:17 02/16/20 06:52 Vital Signs Date Time Temp Pulse Resp B/P (MAP) Pulse Ox O2 Delivery O2 Flow Rate FiO2 02/16/20 10:18 18 02/16/20 06:00 97.5 60 130/70 (90) 95 Room Air I&O- Last 24 Hours up to 6 AM 02/16/20 06:00 Intake Total 1100 ml Output Total 200 ml Balance 900 ml AUSTIN CAREY MD Feb 16, 2020 12:08
--- NOTE | 2020-02-16 13:21 | REPVR ---
PROCEDURE INFORMATION: Exam: CTA Angiogram of the Abdominal Aorta and Bilateral Lower Extremities (Run-off) With IV Contrast Exam date and time: 02/16/2020 12:09 PM Age: 64 years old Clinical indication: Foot pain; Left; Additional info: Possible ischemic leg L TECHNIQUE: Imaging protocol: CT angiogram of the abdominal aorta, pelvis and bilateral lower extremities with IV iodinated contrast. 3D rendering (Not supervised by radiologist): MIP and/or 3D reconstructed images were created by the technologist. Radiation optimization: All CT scans at this facility use at least one of these dose optimization techniques: automated exposure control; mA and/or kV adjustment per patient size (includes targeted exams where dose is matched to clinical indication); or iterative reconstruction. Contrast material: ISOVUE 370; Contrast volume: 100 ml; Contrast route: INTRAVENOUS (IV); COMPARISON: CT ABD PELVIS WITH CONTRAST 12/25/2014 2:51 PM FINDINGS: Aorta: No aortic aneurysm. No aortic dissection. Celiac trunk and mesenteric arteries: No occlusion or significant stenosis. Renal arteries: There are 2 right renal arteries. They are not well seen on the reconstructions due to slice thickness parameters. There may be a 50-70% stenosis involving the dual smaller right renal arteries. The left renal artery demonstrates possible 30-50% stenosis. Right iliac arteries: No occlusion or significant stenosis. Right femoral/popliteal arteries: Unremarkable. Right infrapopliteal arteries: No occlusion or significant stenosis. Left iliac arteries: No occlusion or significant stenosis. 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 Geniculate vessels reconstitute distal left the popliteal artery which is smaller than its counterpart on the right. Right popliteal artery is 4.6 mm in the reconstituted left popliteal artery is 2.1 mm. There is a 4 cm gap. Left infrapopliteal arteries: No occlusion or significant stenosis. Liver: No mass. Gallbladder and bile ducts: There are cholecystectomy clips which are stable. Pancreas: Pancreas demonstrates moderate atrophy. Spleen: Normal. No splenomegaly. Adrenals: Normal. No mass. Kidneys and ureters: Normal. No mass. Stomach and bowel: There is sequelae of bariatric surgery which is stable. There is scattered colonic diverticula. Appendix: No evidence of appendicitis. Bladder: Unremarkable. No mass. Reproductive: Unremarkable. Intraperitoneal space: Unremarkable. No free air. No significant fluid collection. Lymph nodes: No lymphadenopathy. Bones/joints: Previously seen left effusion has resolved. Arthritic changes are noted moderate involving both knees. Soft tissues: There are surgical clips and juan david involving anterior wall pelvis. IMPRESSION: 1. 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 Collateral vessels caused a reconstruction of this vessel after 4 cm gap. 2. Small questionably moderate stenosis 2 right renal arteries. If this is an area of further concern, dedicated renal artery CT angiogram with very thin section imaging and thin section reconstructions due to these being small vessels. 3. Other incidental findings stable the abdomen and pelvis cavity with the exception of resolution of the left effusion. Electronically signed by: Flip Owen On 02/16/2020 13:22:08 PM
--- NOTE | 2020-02-16 13:35 | CR.PDOC ---
General Date of Consultation: Feb 16, [address] Blanco. REASON FOR CONSULTATION/CHIEF COMPLAINT: Intractable LLE pain. HISTORY OF PRESENT ILLNESS: The pt is a 64 yo female who reported to ED for left foot and toe pain. The pt states that left foot and that all the toes on the left foot have been extremely painful with pain extending up the foot to the leg. The pain started on November 17 and the pain has been increasing since then. Vascular Surgery is consulted due to dusky left foot. The pt CTA imaging of the LLE and Dr Blanco noted a thrombosed popliteal artery aneurysm. The pt also reports h/o brain stem aneurysm followed by Neurology, Dr Tate in the past. Pt cannot recall last imaging, states about 2 years ago, pt states she has not returned for FU since then. ALLERGIES: Please see below. HOME MEDICATIONS: Please see below. PAST MEDICAL HISTORY: RHEUMATOID ARTHRITIS HX NECK FUSION FIBROMYALGIA GERD HYPOTHYROID OSTEOARTHRITIS/DDD INSOMNIA LOW VITAMIN D OBESITY DIVERTICULITIS HOPE WYMAN'S PALSY 2008 COPD HISTORY OF PULMONARY EMBOLISM VERTIGO GASTRIC ULCER ANEURYSM BRAIN STEM Surgical History EYE OPERATION - LEFT "LAZY EYE" 1964 C - SECTION 1979 C- SECTION 1988 BREAST REDUCTION 1998 GASTRIC BYPASS 2005 GALLBALDDER 2008 CYST REMOVAL (BENIGN) ARM AND BACK 2009 LEFT KNEE SURGERY 2009 RIGHT KNEE SURGERY 2010 HERNIA SURGERY 2010 APPENDECTOMY WITH COMPLICATIONS 2010 (COLOSTOMY reversal 10/07) REMOVED SEVERAL CYSTS FROM COLON AND BREASTS (ABSCESSES) 2010 HERNIAS REPAIRED X 2 09/2011 NECK FUSION C5-6-7-8 2011 EPIDURAL 02/04/15 INCISIONAL HERNIA REPAIR 09/2016 NERVE BLOCK AT [facility] 2018 Family History FATHER: , DIAGNOSED WITH DIABETES, OTHER MALIGNANT NEOPLASM OF UNSPECIFIED SITE MOTHER: , DIABETES, DAUGHTER (HAYDE) WITH RA OR MS. SOCIAL HISTORY: non smoker REVIEW OF SYSTEMS: as noted in HPI otherwise 11 pt ROS remarkable fro chronic pain. PHYSICAL EXAMINATION: VITAL SIGNS: Please see below. GENERAL APPEARANCE: NAD. HEENT: MMM. RESPIRATORY: CTA. CARDIOVASCULAR: S1S2 RRR. ABDOMEN: soft NT. EXTREMITIES: Left foot TTP, warm to touch, reddish discoloration of the toes, DP/PT nonpalpable. NEUROLOGICAL: moving UE and LEs, no focal deficit. PSYCHIATRIC: A/O x 3. LABORATORY DATA: Please see below. ASSESSMENT/PLAN: 1. LLE pain with thrombosed popliteal aneurysm. CTA Imaging is reviewed as per Dr Blanco, measuring 3.6 cm Would like to possibly consider a minimally invasive endovascular approach with LLE angiogram, Tpa thrombolysis of popliteal aneurysm thrombosis and possible popliteal stent placement. The pt however reports h/o brain stem aneurysm and previously followed with Neurology for surveillance. Would appreciate Neurology opinion if this would be an option in this Pt. If this option is not recommended as per Neurology, could consider an open procedure with above knee to below knee popliteal bypass either on this admission or electively as an outpt, the pt would need medical and cardiac clearance with stress study. IV heparin gtt per protocol if OK with Neurology, would skip loading dose. Continue to follow. Vital Signs/I&O Vital Signs Date Time Temp Pulse Resp B/P (MAP) Pulse Ox O2 Delivery O2 Flow Rate FiO2 02/16/20 10:28 18 02/16/20 06:00 97.5 60 130/70 (90) 95 Room Air I&O- Last 24 Hours up to 6 AM 02/16/20 06:00 Intake Total 1100 ml Output Total 200 ml Balance 900 ml Laboratory Data Labs 24H Laboratory Tests 2 02/15/20 20:17: Immature Granulocyte % (Auto) 0.2, Neutrophils (%) (Auto) 48.7, Lymphocytes (%) (Auto) 40.1, Monocytes (%) (Auto) 8.1H, Eosinophils (%) (Auto) 2.2, Basophils (%) (Auto) 0.7, Neutrophils # (Auto) 2.7, Lymphocytes # (Auto) 2.2, Monocytes # (Auto) 0.4, Eosinophils # (Auto) 0.1, Basophils # (Auto) 0.0, Nucleated Red Blood Cells % (auto) 0.0, Erythrocyte Sedimentation Rate 14, Anion Gap 1L, Glomerular Filtration Rate 55.0, Lactic Acid Level 0.7, Calcium Level 9.2, Total Bilirubin 0.6, Direct Bilirubin 0.1, Aspartate Amino Transf (AST/SGOT) 30, Alanine Aminotransferase (ALT/SGPT) 18, Alkaline Phosphatase 91, C-Reactive Protein, Quantitative < 0.30, Total Protein 7.2, Albumin 3.9, Albumin/Globulin Ratio 1.2 02/16/20 06:52: Nucleated Red Blood Cells % (auto) 0.0, Anion Gap 2L, Glomerular Filtration Rate 58.1, Calcium Level 8.6L CBC/BMP Laboratory Tests 02/15/20 20:17 02/16/20 06:52 Microbiology Microbiology 02/15/20 Blood Culture, Received Pending Allergies Coded Allergies: ciprofloxacin (Verified Allergy, Severe, ANGIOEDEMA, 02/15/20) Sulfa (Sulfonamide Antibiotics) (Verified Allergy, Intermediate, HIVES, 02/15/20) ropinirole (Verified Allergy, Intermediate, RASH, 02/15/20) sulfasalazine (Verified Allergy, Intermediate, HIVES, 02/15/20) methocarbamol (Verified Allergy, Mild, RASH, 02/15/20) pregabalin (Verified Adverse Reaction, Intermediate, MEMORY LOSS, 02/15/20) Home Medications Scheduled Amoxicillin/Potassium Clav (Augmentin 875-125 Tablet) 1 Each Tablet, 875 MG PO BID for 10 Days, (Reported) STARTING 02/08/20 FOR 10 DAYS Duloxetine HCl (Duloxetine HCl) 60 Mg Capsule.dr, 60 MG PO DAILY, (Reported) Ergocalciferol (Vitamin D2) (Vitamin D2) 50,000 Units Cap, 50,000 UNITS PO 2XWK, (Reported) WEDNESDAY AND WEDNESDAY Folic Acid (Folic Acid) 1 Mg Tablet, 1 MG PO DAILY, (Reported) Gabapentin (Gabapentin) 600 Mg Tablet, 600 MG PO TID, (Reported) Hydrochlorothiazide (Hydrochlorothiazide) 25 Mg Tablet, 25 MG PO DAILY, (Report ed) Leflunomide (Arava) 10 Mg Tablet, 10 MG PO DAILY, (Reported) Levothyroxine Sodium (Synthroid) 25 Mcg Tablet, 25 MCG PO DAILY, (Reported) Mirtazapine (Mirtazapine) 7.5 Mg Tablet, 7.5 MG PO QHS, (Reported) Multivitamins (Thera M Plus Tablet) 1 Each Tablet, 1 TAB PO DAILY, (Reported) Nabumetone (Nabumetone) 750 Mg Tablet, 750 MG PO BID, (Reported) Pantoprazole Sodium (Pantoprazole Sodium) 40 Mg Tab, 40 MG PO DAILY, (Reported) Sucralfate (Carafate) 1 Gm Tablet, 1 GM PO TID, (Reported) 4 times per day take on an empty stomach Trazodone HCl (Trazodone HCl) 150 Mg Tablet, 300 MG PO QHS, (Reported) Zolpidem Tartrate (Zolpidem Tartrate) 10 Mg Tablet, 10 MG PO QHS, (Reported) Scheduled PRN Albuterol Sulfate (Proair Hfa) 8.5 Gm Hfa.aer.ad, 2 PUFF INH Q4H PRN for SHORTNESS OF BREATH, (Reported) Diclofenac Sodium (Diclofenac Sodium) 1% 100GM Gel..gram., 1 DOSE TOP QID PRN for PAIN, (Reported) USES ON THIGHS Oxycodone HCl/Acetaminophen (Percocet 10-325 mg Tablet) 1 Each Tablet, 1 TAB PO Q4H PRN for PAIN, (Reported) Tramadol HCl (Tramadol HCl) 50 Mg Tab, 50 MG PO BID PRN for PAIN, (Reported) Andreea Beaver Feb 16, 2020 13:35 MERCEDES BLANCO MD Feb 17, 2020 18:20
[2020-02-16 14:00] VITALS: BP 128/68
[2020-02-16 16:06] VITALS: BP 129/58
--- NOTE | 2020-02-16 16:15 | REPVR ---
PROCEDURE INFORMATION: Exam: MR Angiogram Head Without Contrast, Arteries Exam date and time: 02/16/2020 3:32 PM Age: 64 years old Clinical indication: Condition or disease; Aneurysm, cerebral; Patient HX: HX aneurysm, increased neuro symptoms; Additional info: Eval prior aneurysm TECHNIQUE: Imaging protocol: MR angiogram head without contrast. Exam focused on the arteries. 3D rendering (Not supervised by radiologist): MIP and/or 3D reconstructed images were created by the technologist. COMPARISON: No relevant prior studies available. FINDINGS: ANTERIOR CIRCULATION: Right internal carotid artery: Intracranial segment is patent with no significant stenosis. No aneurysm. Right middle cerebral artery: No occlusion or significant stenosis. No aneurysm. Right anterior cerebral artery: No occlusion or significant stenosis. No aneurysm. Left internal carotid artery: Intracranial segment is patent with no significant stenosis. No aneurysm. Left middle cerebral artery: No occlusion or significant stenosis. No aneurysm. Left anterior cerebral artery: No occlusion or significant stenosis. No aneurysm. POSTERIOR CIRCULATION: Right vertebral artery: No occlusion or significant stenosis. No aneurysm. Left vertebral artery: No occlusion or significant stenosis. No aneurysm. Basilar artery: No occlusion or significant stenosis. No aneurysm. Right posterior cerebral artery: No occlusion or significant stenosis. No aneurysm. Left posterior cerebral artery: No occlusion or significant stenosis. No aneurysm. IMPRESSION: No stenosis or occlusion. Electronically signed by: Flip Oewn On 02/16/2020 16:15:22 PM
[2020-02-16] MEDS ORDERED: SLF 3 ML SYR IV PRN (17:00)
[2020-02-16] MEDS ORDERED: HEPARIN SOD (PORCINE) 5000UNITS/ML 1ML VIAL/SYRINGE IV PRN (17:00)
[2020-02-16] MEDS ORDERED: NS 1,000 ML IV SCH (17:30)
--- NOTE | 2020-02-16 17:40 | IPNPDOC ---
Date Seen The patient was seen on 02/16/20. Progress Note Patient seen and examined. Please see Andreea valdivia for full consult. 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 The patient's description of her left lower extremity symptoms varies between joint pain complaints calf pain complaints foot pain complaints and complaints that sound related to vasculature. It is therefore difficult to know how long her arterial occlusion has been present. Likely, this is been at least a month or 2 because the patient has excellent collateral flow through her genicular is around the aneurysm occlusion to the below-knee popliteal artery which is widely patent with good runoff through the tibial vessels. However, with complete occlusion of the aneurysm and no in-line flow to the tibials, I do suspect the patient has significant short distance claudication. However, she is not at risk for acute limb loss, as her foot is warm with good capillary refill and monophasic signals in the tibial vessels at the ankle and foot. The patient has a history of right cavernous carotid aneurysm, but has not been followed up for this in a few years, so we discussed with her neurologist, Dr. Tate, and he is agreeable for us to be able to use anticoagulation and/or tPA if needed if the aneurysm is less than 5 mm. We obtained an MRA of the brain, and the radiologist did not note a carotid aneurysm, and upon my measurements, the vessel measures 3 mm proximally and distally and 4.8-5.1 diameter in the area of aneurysm. We will discuss this with Dr. Tate but I suspect he will be agreeable to us proceeding with a heparin drip and tPA anticoagulation. We will ask him to write a consult note regarding this. Tentatively, I have scheduled the patient for a left lower extremity arteriogram and attempt to cross occluded left popliteal aneurysm with planned tPA thrombolysis followed by a planned repeat arteriogram the following day and possible popliteal artery covered stent placement to exclude the aneurysm. Alternatively, if we are unable to use TPA or if it is unsuccessful, we can do an above-knee to below-knee popliteal bypass. Further recommendations to follow. VS, I&O, 24H, Fishbone Vital Signs/I&O Vital Signs Date Time Temp Pulse Resp B/P (MAP) Pulse Ox O2 Delivery O2 Flow Rate FiO2 02/16/20 16:40 18 02/16/20 16:06 98.4 63 129/58 (81) 96 Room Air I&O- Last 24 Hours up to 6 AM 02/16/20 06:00 Intake Total 1100 ml Output Total 200 ml Balance 900 ml Laboratory Data 24H LABS Laboratory Tests 2 02/15/20 20:17: Immature Granulocyte % (Auto) 0.2, Neutrophils (%) (Auto) 48.7, Lymphocytes (%) (Auto) 40.1, Monocytes (%) (Auto) 8.1H, Eosinophils (%) (Auto) 2.2, Basophils (%) (Auto) 0.7, Neutrophils # (Auto) 2.7, Lymphocytes # (Auto) 2.2, Monocytes # (Auto) 0.4, Eosinophils # (Auto) 0.1, Basophils # (Auto) 0.0, Nucleated Red Blood Cells % (auto) 0.0, Erythrocyte Sedimentation Rate 14, Anion Gap 1L, Glomerular Filtration Rate 55.0, Lactic Acid Level 0.7, Calcium Level 9.2, Total Bilirubin 0.6, Direct Bilirubin 0.1, Aspartate Amino Transf (AST/SGOT) 30, Alanine Aminotransferase (ALT/SGPT) 18, Alkaline Phosphatase 91, C-Reactive Protein, Quantitative < 0.30, Total Protein 7.2, Albumin 3.9, Albumin/Globulin Ratio 1.2 02/16/20 06:52: Nucleated Red Blood Cells % (auto) 0.0, Anion Gap 2L, Glomerular Filtration Rate 58.1, Calcium Level 8.6L CBC/BMP Laboratory Tests 02/15/20 20:17 02/16/20 06:52 Microbiology Microbiology 02/15/20 Blood Culture, Received Pending MERCEDES PIERRE MD Feb 16, 2020 17:40
[2020-02-16] MEDS: HEPARIN DRIP 25,000 UNITS in IV 1 EA IV SCH (19:37)
[2020-02-16 19:41] LABS: INR 0.96
[2020-02-16 19:42] LABS: PARTIAL THROMBOPLASTIN TIME 32.3 SECONDS (25.0-38.4)
[2020-02-16] MEDS: SLF 3 ML SYR IV SCH (19:56)
[2020-02-16 20:00] VITALS: BP 129/58
[2020-02-16] MEDS ORDERED: AMITRIPTYLINE 25 MG TAB PO SCH (21:00)
[2020-02-17] MEDS: HYDROMORPHONE HCL 0.5 MG/ 0.5 ML SYRINGE (J1170 PER 1) IV PRN ×6 (01:08→22:15)
[2020-02-17] MEDS: MORPHINE 30 MG TAB **MSIR PO PRN ×5 (01:17→20:37)
[2020-02-17 04:00] VITALS: BP 130/67
[2020-02-17] MEDS: LEVOTHYROXINE 25MCG TABLET (0.025MG) PO SCH (05:07)
[2020-02-17] MEDS: SLF 3 ML SYR IV SCH ×3 (05:07→20:40)
[2020-02-17 08:00] VITALS: BP 135/77
[2020-02-17] MEDS: DOCUSATE SODIUM 100 MG CAP PO SCH ×2 (08:40→20:37)
[2020-02-17] MEDS: SUCRALFATE 1 GM TAB PO SCH ×3 (08:41→20:37)
[2020-02-17] MEDS: MULTIVITAMINS/MINERALS THERAP 1 TAB PO SCH (08:41)
[2020-02-17] MEDS: FOLIC ACID 1 MG TAB PO SCH (08:41)
[2020-02-17] MEDS: PANTOPRAZOLE 40MG TAB (PROTONIX) PO SCH ×2 (08:41→20:37)
[2020-02-17] MEDS: hydroCHLOROthiazide 25 MG TAB PO SCH (08:41)
[2020-02-17] MEDS: DULoxetine 30 MG CAP (CYMBALTA) PO SCH (08:41)
[2020-02-17] MEDS: GABAPENTIN 300 MG CAP PO SCH ×3 (08:41→20:38)
[2020-02-17] MEDS: AMITRIPTYLINE 25 MG TAB PO SCH ×2 (09:10→20:38)
[2020-02-17 12:00] VITALS: BP 127/61
--- NOTE | 2020-02-17 12:05 | IPNPDOC ---
Text Note Date of Service The patient was seen on 02/17/20. NOTE Subjective: Pt notes discoloration of left foot improving since yesterday. Denies CP/SOB/palpitations. No bleeding. Objective: Vitals: (see below) General: No acute distress, laying comfortably in bed. HEENT: Moist mucous membranes. Neck: No JVD or lymphadenopathy Cardiac: RRR, No murmurs Pulm: Clear to auscultation b/l. No wheezing, rhonchi Abd: NT/ND + BS Ext: Left foot with diminished pulses L>R. Skin discoloration slightly improved. Less tenderness to palpation of left foot. Labs (see below) U/S LE negative for dvt; has bakers cyst. CTA Abd/LE IMPRESSION: 1. 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 Collateral vessels caused a reconstruction of this vessel after 4 cm gap. 2. Small questionably moderate stenosis 2 right renal arteries. If this is an area of further concern, dedicated renal artery CT angiogram with very thin section imaging and thin section reconstructions due to these being small vessels. 3. Other incidental findings stable the abdomen and pelvis cavity with the exception of resolution of the left effusion. 64 year old female with Rheumatoid arthritis, osteoarthritis, fibromyalgia, chronic neck and back pain follows at pain clinic, obesity, HOPE, COPD, GERD, hypothyroid, peptic ulcer disease presented to ED for left foot and toe pain. Patient reported that left foot has nerve damage and she reported that all the toes on the left foot has been extremely painful with pain extending up the foot to the leg. The pain started on November 17 and the pain has been increasing since then. It is 10/10, burning and stinging in character, and has numbness of the foot. She was seen by pain clinic last week and told to come to ED but she did not want to come. She was and started on antibiotics by PMD and was seen today for follow up and then sent to the ED for evaluation for DVT. US of the leg shows a popiteal cyst but no DVT. She is admitted for pain control and evaluation of the toe and foot pain. Ischemic leg - CTA (see above) - Discussed with Dr. Blanco; pt likely needs tpa; to be done on Wednesday. In the meantime, can start heparin drip. MRA Head done 02/16 - Discussed results with Dr. Paras kate for heparin drip. He will re-eval MRA Brain for recc of tpa on Wednesday. - Discussed risks of bleeding, and she is agreeable with anticoagulation with heparin drip and thrombolysis on wednesday. - Ortho consult for Back pain with Radiculopathy - pain control with IV dilaudid, morphine immediate release, gabapentin, amitriptyline RA/Fibromyalgia continue home meds Hypothyroid synthroid COPD albuterol prn Hypertension HCTZ. GERD/Peptic ulcer disease continue PPI. DVT Prophy on heparin drip VS,Fishbone, I+O VS, Fishbone, I+O Vital Signs Date Time Temp Pulse Resp B/P (MAP) Pulse Ox O2 Delivery O2 Flow Rate FiO2 02/17/20 10:00 16 02/17/20 08:00 98.3 61 135/77 (96) 95 Room Air I&O- Last 24 Hours up to 6 AM 02/17/20 06:00 Intake Total 1860 ml Output Total 600 ml Balance 1260 ml AUSTIN CAREY MD Feb 17, 2020 12:05
[2020-02-17] MEDS: HEPARIN DRIP 25,000 UNITS in IV 1 EA IV SCH (15:06)
[2020-02-17] MEDS: MIRTAZAPINE 7.5MG PER 1/2 TABLET PO SCH (20:37)
[2020-02-17] MEDS: traZODone 100 MG TAB PO SCH (20:38)
[2020-02-17 22:00] VITALS: BP 128/70
[2020-02-18] MEDS: HYDROMORPHONE HCL 0.5 MG/ 0.5 ML SYRINGE (J1170 PER 1) IV PRN ×5 (02:06→23:34)
[2020-02-18 06:00] VITALS: BP 114/55
[2020-02-18] MEDS: MORPHINE 30 MG TAB **MSIR PO PRN ×2 (06:07→20:50)
[2020-02-18] MEDS: LEVOTHYROXINE 25MCG TABLET (0.025MG) PO SCH (06:07)
[2020-02-18] MEDS: SLF 3 ML SYR IV SCH ×3 (06:08→20:51)
[2020-02-18 06:42] LABS: HEMATOCRIT 29.9 % (36.0-47.0); HEMOGLOBIN 9.7 g/dl (12.0-15.5); MEAN CORPUSCULAR HEMOGLOBIN 29.5 pg (27.0-33.0); MEAN CORPUSCULAR HGB CONC 32.4 g/dl (32.0-36.5); MEAN CORPUSCULAR VOLUME 90.9 fl (80.0-96.0); PLATELET COUNT, AUTOMATED 162 10^3/uL (150-450); RED BLOOD COUNT 3.29 10^6/uL (4.00-5.40); WHITE BLOOD COUNT 4.6 10^3/uL (4.0-10.0)
[2020-02-18 06:59] LABS: BLOOD UREA NITROGEN 16 MG/DL (7-18); CALCIUM LEVEL 9.1 MG/DL (8.8-10.2); CARBON DIOXIDE LEVEL 26 MEQ/L (21-32); CHLORIDE LEVEL 107 MEQ/L (98-107); CREATININE FOR GFR 0.99 MG/DL (0.55-1.30); GLOMERULAR FILTRATION RATE > 60.0 (>45); GLUCOSE, FASTING 88 MG/DL (70-100); MAGNESIUM LEVEL 1.4 MG/DL (1.8-2.4); POTASSIUM SERUM 3.8 MEQ/L (3.5-5.1); SODIUM LEVEL 141 MEQ/L (136-145)
[2020-02-18] MEDS: SUCRALFATE 1 GM TAB PO SCH ×3 (08:21→20:49)
[2020-02-18] MEDS: DOCUSATE SODIUM 100 MG CAP PO SCH ×2 (08:21→20:49)
[2020-02-18] MEDS: MULTIVITAMINS/MINERALS THERAP 1 TAB PO SCH (08:21)
[2020-02-18] MEDS: PANTOPRAZOLE 40MG TAB (PROTONIX) PO SCH ×2 (08:21→20:49)
[2020-02-18] MEDS: GABAPENTIN 300 MG CAP PO SCH ×3 (08:21→20:49)
[2020-02-18] MEDS: FOLIC ACID 1 MG TAB PO SCH (08:21)
[2020-02-18] MEDS: AMITRIPTYLINE 25 MG TAB PO SCH ×2 (08:23→20:49)
[2020-02-18] MEDS: DULoxetine 30 MG CAP (CYMBALTA) PO SCH (08:24)
[2020-02-18] MEDS: hydroCHLOROthiazide 25 MG TAB PO SCH (08:26)
[2020-02-18] MEDS ORDERED: MAG SULF 1GM/100ML (MAG RUN) 1 GM in IV 1 EA IV ONE (09:00)
--- NOTE | 2020-02-18 10:45 | IPNPDOC ---
Text Note Date of Service The patient was seen on 02/18/20. NOTE Subjective: No acute changes overnight. Pain controlled. Denies CP/SOB/palpit ations. No bleeding. Objective: Vitals: (see below) General: No acute distress, laying comfortably in bed. HEENT: Moist mucous membranes. Neck: No JVD or lymphadenopathy Cardiac: RRR, No murmurs Pulm: Clear to auscultation b/l. No wheezing, rhonchi Abd: NT/ND + BS Ext: Left foot with diminished pulses L>R. Skin discoloration slightly improved. Less tenderness to palpation of left foot. Labs (see below) U/S LE negative for dvt; has bakers cyst. CTA Abd/LE IMPRESSION: 1. 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 Collateral vessels caused a reconstruction of this vessel after 4 cm gap. 2. Small questionably moderate stenosis 2 right renal arteries. If this is an area of further concern, dedicated renal artery CT angiogram with very thin section imaging and thin section reconstructions due to these being small vessels. 3. Other incidental findings stable the abdomen and pelvis cavity with the exception of resolution of the left effusion. 64 year old female with Rheumatoid arthritis, osteoarthritis, fibromyalgia, chronic neck and back pain follows at pain clinic, obesity, HOPE, COPD, GERD, hypothyroid, peptic ulcer disease presented to ED for left foot and toe pain. Patient reported that left foot has nerve damage and she reported that all the toes on the left foot has been extremely painful with pain extending up the foot to the leg. The pain started on November 17 and the pain has been increasing since then. It is 10/10, burning and stinging in character, and has numbness of the foot. She was seen by pain clinic last week and told to come to ED but she did not want to come. She was and started on antibiotics by PMD and was seen today for follow up and then sent to the ED for evaluation for DVT. US of the leg shows a popiteal cyst but no DVT. She is admitted for pain control and evaluat ion of the toe and foot pain. Ischemic leg - CTA (see above) - Discussed with Dr. Blanco; pt likely needs tpa; to be done on Wednesday. In the meantime, can start heparin drip. MRA Head done 02/16 - Discussed results with Dr. Paras kate for heparin drip. He will re-eval MRA Brain for recc of tpa on Wednesday. - Discussed risks of bleeding, and she is agreeable with anticoagulation with heparin drip and thrombolysis on wednesday. - Ortho consult for Back pain with Radiculopathy - pain control with IV dilaudid, morphine immediate release, gabapentin, amitriptyline RA/Fibromyalgia continue home meds Hypothyroid synthroid COPD albuterol prn Hypertension HCTZ. GERD/Peptic ulcer disease continue PPI. DVT Prophy on heparin drip Plan for OR tomorrow. VS,Fishbone, I+O VS, Fishbone, I+O Laboratory Tests 02/18/20 06:02 02/18/20 06:03 Vital Signs Date Time Temp Pulse Resp B/P (MAP) Pulse Ox O2 Delivery O2 Flow Rate FiO2 02/18/20 08:48 17 02/18/20 06:38 Room Air 02/18/20 06:00 98.5 63 114/55 (74 93 I&O- Last 24 Hours up to 6 AM 02/18/20 06:00 Intake Total 738 ml Output Total 225 ml Balance 513 ml AUSTIN CAREY MD Feb 18, 2020 10:45
--- NOTE | 2020-02-18 11:00 | IPNPDOC ---
Date Seen The patient was seen on 02/18/20. Progress Note Patient seen and examined. She still complains of pain in her left foot and knee, but says most of that is chronic. She says her pain in her left foot is a little bit better since starting the heparin drip. On my exam, I don't notice much improvement in her Doppler signals in the DP and PT, but likely he will require or more permanent solution before her perfusion will improve enough to notice a difference in auscultation. Nevertheless, her foot is warm and adequately perfused and not at acute risk of tissue loss, and no skin changes, gangrene, or ulcers noted. Today the patient and I had a long discussion about attempting tPA thrombolysis of her left popliteal artery thrombosed aneurysm tomorrow. Proceeding will depend on a note from Dr. Tate saying it is safe from an intracranial aneurysm standpoint, but I am told by Dr. Dover that Dr. Tate did give his blessing and a note is forthcoming. This is good news as I think the patient would do better with a minimal invasive approach. I discussed with her the risks benefits and alternatives to tPA thrombolysis and the fact that this would require a drip overnight in the ICU and she is agreeable. We went through a long list of questions about bleeding risks and the patient denies any recent bleeding episodes, any bleeding or clotting disorders, any history of intracranial hemorrhage falls or trauma to the head, any history of trauma or falls affecting any other part of her body, any recent history of surgery, any history of nosebleeds, gum bleeding, hemoptysis or hematemesis, hematuria or hematochezia, any history of bleeding hemorrhoids, any history of easy bruising, and therefore we feel her risk benefit ratio is satisfactory to proceed with tPA thrombolysis, as long as we receive a blessing from Dr. Tate. I discussed with the patient that because we are unclear of the chronicity of the left popliteal aneurysm thrombosis, tPA may or may not be successful. It is possible we will not be able to cross through the clot to place a tPA catheter, but most likely we will. However, even if we are able to cross through, the tPA may not be successful if the thrombus is chronic. Based on her history, were unclear if this is been present for 3 weeks or 3 months. If it is been present for 3 months, likely tPA will be minimally effective. If that is the case, we likely will need to do an above-knee to below-knee bypass, but I discussed with the patient this would not be done right away as we would like to obtain cardiac clearance and a cardiac stress test prior to surgery. For now, we will plan on proceeding with an attempt for tPA thrombolysis in the left lower extremity tomorrow. The patient has been extensively counseled about the risks and benefits and she is agreeable to proceed. Informed consent was obtained. She will need to be nothing by mouth after midnight. We do not need to hold the heparin drip prior to surgery and we would like it to be sent down with the patient to interventional radiology. She will need an ICU bed postprocedure. We appreciate the opportunity to produce patent care of this patient. VS, I&O, 24H, Fishbone Vital Signs/I&O Vital Signs Date Time Temp Pulse Resp B/P (MAP) Pulse Ox O2 Delivery O2 Flow Rate FiO2 02/18/20 08:48 17 02/18/20 06:38 Room Air 02/18/20 06:00 98.5 63 114/55 (74) 93 I&O- Last 24 Hours up to 6 AM 02/18/20 06:00 Intake Total 738 ml Output Total 225 ml Balance 513 ml Laboratory Data 24H LABS Laboratory Tests 2 02/18/20 06:02: Nucleated Red Blood Cells % (auto) 0.0, Activated Partial Thromboplast Time 73.4H 02/18/20 06:03: Anion Gap 8, Glomerular Filtration Rate > 60.0, Calcium Level 9.1, Magnesium Level 1.4L CBC/BMP Laboratory Tests 02/18/20 06:02 02/18/20 06:03 Microbiology Microbiology 02/18/20 Stool Occult Blood (JOSE) - Final, Complete 02/15/20 Blood Culture - Preliminary, Resulted No Growth after 48 hours. All Specime... 02/15/20 Blood Culture - Preliminary, Resulted No growth after 24 hours . All specim... MERCEDES PIERRE MD Feb 18, 2020 11:00
[2020-02-18 14:00] VITALS: BP 136/71
[2020-02-18] MEDS: HEPARIN DRIP 25,000 UNITS in IV 1 EA IV SCH (14:35)
[2020-02-18] MEDS: MIRTAZAPINE 7.5MG PER 1/2 TABLET PO SCH (20:49)
[2020-02-18] MEDS: traZODone 100 MG TAB PO SCH (20:49)
[2020-02-18 22:00] VITALS: BP 141/81
[2020-02-18] MEDS: PERCOCET 5MG/325MG TAB PO PRN (22:13)
[2020-02-19] VITALS (13 sets, daily range): BP systolic 107–158; BP diastolic 56–80
[2020-02-19] MEDS: LEVOTHYROXINE 25MCG TABLET (0.025MG) PO SCH (05:45)
[2020-02-19] MEDS: SLF 3 ML SYR IV SCH ×3 (05:51→20:13)
[2020-02-19] MEDS: HYDROMORPHONE HCL 0.5 MG/ 0.5 ML SYRINGE (J1170 PER 1) IV PRN ×4 (05:52→19:12)
[2020-02-19] MEDS ORDERED: LIDOCAINE 1% MDV 20ML VIAL As Ordered ONE (06:58)
[2020-02-19] MEDS ORDERED: ISOVUE-300 61% 50ML VIAL As Ordered ONE (06:58)
[2020-02-19] MEDS ORDERED: ceFAZolin SOD 2 GM in IV 1 EA IV ONE (07:00)
[2020-02-19] MEDS ORDERED: MIDAZOLAM INJ 2MG/2ML VIAL (J2250 PER 1MG) As Ordered ONE (07:23)
[2020-02-19] MEDS ORDERED: fentaNYL 100 MCG/2 ML INJECTION (J3010) As Ordered ONE (07:23)
[2020-02-19 08:02] LABS: HEMATOCRIT 32.3 % (36.0-47.0); HEMOGLOBIN 10.5 g/dl (12.0-15.5); MEAN CORPUSCULAR HEMOGLOBIN 29.7 pg (27.0-33.0); MEAN CORPUSCULAR HGB CONC 32.5 g/dl (32.0-36.5); MEAN CORPUSCULAR VOLUME 91.2 fl (80.0-96.0); PLATELET COUNT, AUTOMATED 172 10^3/uL (150-450); RED BLOOD COUNT 3.54 10^6/uL (4.00-5.40); WHITE BLOOD COUNT 4.3 10^3/uL (4.0-10.0)
[2020-02-19] MEDS ORDERED: ALTEPLASE 2MG/2ML VIAL As Ordered ONE (08:24)
[2020-02-19] MEDS ORDERED: HEPARIN 25,000 UNITS/250 ML D5W BAG (100 UNITS/ML) (J1644 PER 1000UNITS) As Ordered ONE (08:41)
[2020-02-19] MEDS ORDERED: ceFAZolin 1GM VIAL (J0690 PER 500MG) As Ordered ONE (08:46)
[2020-02-19 08:55] LABS: BLOOD UREA NITROGEN 15 MG/DL (7-18); CALCIUM LEVEL 9.3 MG/DL (8.8-10.2); CARBON DIOXIDE LEVEL 30 MEQ/L (21-32); CHLORIDE LEVEL 104 MEQ/L (98-107); CREATININE FOR GFR 0.99 MG/DL (0.55-1.30); GLOMERULAR FILTRATION RATE > 60.0 (>45); GLUCOSE, FASTING 99 MG/DL (70-100); MAGNESIUM LEVEL 1.5 MG/DL (1.8-2.4); POTASSIUM SERUM 3.9 MEQ/L (3.5-5.1); SODIUM LEVEL 140 MEQ/L (136-145)
[2020-02-19] MEDS: GABAPENTIN 300 MG CAP PO SCH ×3 (09:00→20:15)
[2020-02-19] MEDS: AMITRIPTYLINE 25 MG TAB PO SCH ×2 (09:00→20:12)
[2020-02-19] MEDS: SUCRALFATE 1 GM TAB PO SCH ×3 (09:00→20:12)
[2020-02-19] MEDS: HEPARIN DRIP 25,000 UNITS in IV 1 EA IV SCH (09:53)
[2020-02-19] MEDS ORDERED: HYDROMORPHONE HCL 0.5 MG/ 0.5 ML SYRINGE (J1170 PER 1) IV PRN (10:00)
[2020-02-19] MEDS: ALTEPLASE RECOMBINANT 25 MG in NS 225 ML IV SCH (10:00)
[2020-02-19] MEDS ORDERED: HYDROmorphone HCL 2 MG/ML 1ML VIAL (J1170) As Ordered ONE (10:17)
[2020-02-19] MEDS ORDERED: HYDROmorphone HCL 2 MG/ML 1ML VIAL (J1170) IV PRN (10:25)
--- NOTE | 2020-02-19 10:25 | ROOPDOC ---
[facility] Report Of Operation Report of Operation DATE OF PROCEDURE: 02/19/20 PREPROCEDURE DIAGNOSES: Thrombosed left popliteal artery aneurysm POSTPROCEDURE DIAGNOSES: Same PROCEDURE: 1. Ultrasound-guided access right common femoral artery 2. Aortoiliofemoral arteriogram with left lower extremity runoff 3. Placement of a 20 cm infusion length catheter left lower extremity from tibioperoneal trunk to distal SFA for TPA thrombolysis SURGEON: Mercedes Blanco MD ANESTHESIA: Local anesthesia 10 mL lidocaine. Moderate intravenous conscious sedation with supervised by Dr. Blanco. The patient is independently monitored by registered nurse assigned to the Department of radiology using automated blood pressure, EKG, and pulse oximetry. The detailed sedation records permanently stored in the hospital information system. The following is a brief sedation record: Start time 08:06, stop time 09:33, Versed 1.5 mg IV, fentanyl 75 g IV, tPA 8 mg IV. CONTRAST: 21 mL Isovue-300 INDICATION FOR PROCEDURE: This is a very pleasant 64-year-old patient with long- term chronic pain issues who developed worsening pain in her left lower extremity over the past 3 weeks to 3 months, timing unclear. She had a CTA and after a review at this, I noted a thrombosed left popliteal artery aneurysm. Risks benefits alternatives to an attempt at TPA thrombolysis were discussed with the patient and she is agreeable to proceed. Informed consent was obtained. Extensive conversation was held with the patient about risks of bleeding, and has been documented in her progress note. INTERPRETATION: 1. The aortoiliac arterial vessels are widely patent. There is no stenosis noted at the distal aorta, the common iliac arteries, the hypogastric arteries, or the external iliac arteries bilaterally. 2. The left superficial femoral artery and profunda are widely patent. There is excellent flow in the proximal popliteal artery but it abruptly occludes at the thrombosed aneurysm and reconstitutes at the distal popliteal artery from collaterals from the genicular vessels. There is then excellent runoff through the anterior tibial artery, posterior tibial artery, and peroneal artery, although the best of the 3 vessels is the posterior tibial artery which is the most rapid flow to the distal foot. 3. After crossing through the occlusion in the popliteal aneurysm on the left, contrast injection confirmed we are in the true lumen and there was good runoff through the tibial vessels. TPA lysis catheter placement was confirmed with im aging. REPORT OF OPERATION: The patient was brought to the angiographic suite in stable condition. Her bilateral groins were prepped and draped in a sterile fashion. A timeout was performed. Sedation was administered without complication. Local anesthesia was a implementation manager to skin and subcutaneous tissue over the right common femoral artery. A microneedle was used to access her right common femoral artery under ultrasound guidance. A wire was passed through this access and the needle was removed. A 4 Mongolian sheath was placed and flushed with saline. A Glidewire and flushing catheter were introduced to the infrarenal aorta under fluoroscopic guidance. Aortoiliofemoral arteriograms were performed. Please see interpretation above. We then went up and over the bifurcation with a Glidewire and flushing catheter and selected the right common femoral artery and superficial femoral artery. Left lower extremity runoff was performed. Please see interpretation above. We then advanced the wire down to the distal superficial femoral artery. The catheter over the wire helped as navigated the wire through the thrombosed popliteal aneurysm and once the catheter was distal to the thrombosis, aquatic contrast injection confirmed we're in the true lumen and no extravasation or embolization were noted. We then exchange the catheter over the wire and exchanged our sheath for a 7 Mongolian 45 cm destination sheath and flushed the sheath with saline. We then placed a 20 cm infusion length catheter with the distal aspect in the tibioperoneal trunk and the proximal aspect in the distal SFA on the left. 8 mg of TPA was given as a bolus through the catheter and then a 1 mg an hour drip was started through the catheter. 400 units an hour heparin drip was started through the sheath. Sterile dressings were applied and the patient was taken to recovery in stable condition. She tolerated the procedure and sedation well. ESTIMATED BLOOD LOSS: Approximately 2 mL. COMPLICATIONS: None. PLAN: The patient will go to the ICU for TPA drip overnight. The heparin should be maintained through the sheath of 400 units an hour. It is not to be titrated based on PTT. It is okay to draw labs through the sheath, but is 45 cm best it will need to be flushed with saline with several syringes prior to drawing labs. We are hopeful that the TPA will be successful across the subacute versus chronic thrombus in the left popliteal artery. Unfortunately, since we are not sure of the chronicity, this may not be successful. The patient may require an above-knee to below-knee bypass if that is unsuccessful. We will know better tomorrow based on her response to the TPA. If the TPA is successful, likely we will be able to give her minimally invasive solution with a viabahn covered stent across the popliteal aneurysm to excluded it. We will see how she does overnight and plan for repeat imaging tomorrow. We appreciate the opportunity to participate in the care of this patient. MERCEDES BLANCO MD Feb 19, 2020 10:25
[2020-02-19] MEDS ORDERED: ONDANSETRON 4MG/2ML VIAL IV PRN (10:30)
[2020-02-19] MEDS: hydroCHLOROthiazide 25 MG TAB PO SCH (13:04)
[2020-02-19] MEDS: FOLIC ACID 1 MG TAB PO SCH (13:04)
[2020-02-19] MEDS: diazePAM 5 MG TAB PO PRN (13:05)
[2020-02-19] MEDS: PANTOPRAZOLE 40MG TAB (PROTONIX) PO SCH ×2 (13:05→20:12)
[2020-02-19] MEDS: DOCUSATE SODIUM 100 MG CAP PO SCH ×2 (13:05→20:12)
[2020-02-19] MEDS: DULoxetine 30 MG CAP (CYMBALTA) PO SCH (13:05)
[2020-02-19] MEDS: MULTIVITAMINS/MINERALS THERAP 1 TAB PO SCH (13:05)
--- NOTE | 2020-02-19 14:15 | IPNPDOC ---
Text Note Date of Service The patient was seen on 02/19/20. NOTE Subjective: Pt seen post op, has pain at the LLE, however tolerated procedure well. Currently getting tpa. No changes in mentation or bleeding. Objective: Vitals: (see below) General: No acute distress, laying comfortably in bed. HEENT: Moist mucous membranes. Neck: No JVD or lymphadenopathy Cardiac: RRR, No murmurs Pulm: Clear to auscultation b/l. No wheezing, rhonchi Abd: NT/ND + BS Ext: Left foot with diminished pulses L>R. Skin discoloration slightly improved. Labs (see below) U/S LE negative for dvt; has bakers cyst. CTA Abd/LE IMPRESSION: 1. 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 Collateral vessels caused a reconstruction of this vessel after 4 cm gap. 2. Small questionably moderate stenosis 2 right renal arteries. If this is an area of further concern, dedicated renal artery CT angiogram with very thin section imaging and thin section reconstructions due to these being small vessels. 3. Other incidental findings stable the abdomen and pelvis cavity with the exception of resolution of the left effusion. Aortofemoral arteriogram INTERPRETATION: 1. The aortoiliac arterial vessels are widely patent. There is no stenosis noted at the distal aorta, the common iliac arteries, the hypogastric arteries, or the external iliac arteries bilaterally. 2. The left superficial femoral artery and profunda are widely patent. There is excellent flow in the proximal popliteal artery but it abruptly occludes at the thrombosed aneurysm and reconstitutes at the distal popliteal artery from collaterals from the genicular vessels. There is then excellent runoff through the anterior tibial artery, posterior tibial artery, and peroneal artery, although the best of the 3 vessels is the posterior tibial artery which is the most rapid flow to the distal foot. 3. After crossing through the occlusion in the popliteal aneurysm on the left, contrast injection confirmed we are in the true lumen and there was good runoff through the tibial vessels. TPA lysis catheter placement was confirmed with imaging. 64 year old female with Rheumatoid arthritis, osteoarthritis, fibromyalgia, chronic neck and back pain follows at pain clinic, obesity, HOPE, COPD, GERD, hypothyroid, peptic ulcer disease presented to ED for left foot and toe pain. Patient reported that left foot has nerve damage and she reported that all the toes on the left foot has been extremely painful with pain extending up the foot to the leg. The pain started on November 17 and the pain has been increasing since then. It is 10/10, burning and stinging in character, and has numbness of the foot. She was seen by pain clinic last week and told to come to ED but she did not want to come. She was and started on antibiotics by PMD and was seen today for follow up and then sent to the ED for evaluation for DVT. US of the leg shows a popiteal cyst but no DVT. She is admitted for pain control and evaluation of the toe and foot pain. Thrombosed left popliteal artery aneurysm s/p Ultrasound-guided access right common femoral artery, Aortoiliofemoral arteriogram with left lower extremity runoff, Placement of a 20 cm infusion length catheter left lower extremity from tibioperoneal trunk to distal SFA for TPA thrombolysis 02/18 - CTA (see above) - Appreciate Dr. Blanco's input - pain control - Tpa until tomorrow for re-eval per Dr. Blanco. Back pain with Radiculopathy - Ortho consulted RA/Fibromyalgia continue home meds Hypothyroid synthroid COPD albuterol prn Hypertension HCTZ. GERD/Peptic ulcer disease continue PPI. Monitor in ICU VSLeanna, I+O VSLeanna I+O Laboratory Tests 02/19/20 07:12 Vital Signs Date Time Temp Pulse Resp B/P (MAP) Pulse Ox O2 Delivery O2 Flow Rate FiO2 02/19/20 12:57 18 94 Room Air 02/19/20 10:45 66 02/19/20 10:38 123/77 02/19/20 09:25 2 02/19/20 07:20 98.1 I&O- Last 24 Hours up to 6 AM 02/19/20 05:59 Intake Total 1094 ml Output Total 750 ml Balance 344 ml AUSTIN CAREY MD Feb 19, 2020 14:15
[2020-02-19] MEDS: MORPHINE 30 MG TAB **MSIR PO PRN (15:14)
[2020-02-19 18:21] LABS: HEMATOCRIT 30.2 % (36.0-47.0); HEMOGLOBIN 9.6 g/dl (12.0-15.5); MEAN CORPUSCULAR HEMOGLOBIN 29.4 pg (27.0-33.0); MEAN CORPUSCULAR HGB CONC 31.8 g/dl (32.0-36.5); MEAN CORPUSCULAR VOLUME 92.4 fl (80.0-96.0); PLATELET COUNT, AUTOMATED 144 10^3/uL (150-450); RED BLOOD COUNT 3.27 10^6/uL (4.00-5.40); WHITE BLOOD COUNT 4.9 10^3/uL (4.0-10.0)
[2020-02-19] MEDS: ceFAZolin SOD 1 GM in D5W MINI-BAG PLUS 50 ML IV SCH (18:23)
[2020-02-19] MEDS: traZODone 100 MG TAB PO SCH (20:12)
[2020-02-19] MEDS: MIRTAZAPINE 7.5MG PER 1/2 TABLET PO SCH (20:12)
[2020-02-20] VITALS (23 sets, daily range): BP systolic 100–155; BP diastolic 51–84
[2020-02-20] MEDS: ceFAZolin SOD 1 GM in D5W MINI-BAG PLUS 50 ML IV SCH ×3 (01:53→18:29)
[2020-02-20] MEDS: HYDROMORPHONE HCL 0.5 MG/ 0.5 ML SYRINGE (J1170 PER 1) IV PRN ×6 (03:53→18:43)
[2020-02-20] MEDS: SLF 3 ML SYR IV SCH ×3 (05:58→20:25)
[2020-02-20] MEDS: LEVOTHYROXINE 25MCG TABLET (0.025MG) PO SCH (05:58)
[2020-02-20] MEDS: MORPHINE 30 MG TAB **MSIR PO PRN ×4 (05:58→20:24)
[2020-02-20 06:28] LABS: HEMATOCRIT 32.1 % (36.0-47.0); HEMOGLOBIN 10.4 g/dl (12.0-15.5); MEAN CORPUSCULAR HEMOGLOBIN 29.4 pg (27.0-33.0); MEAN CORPUSCULAR HGB CONC 32.4 g/dl (32.0-36.5); MEAN CORPUSCULAR VOLUME 90.7 fl (80.0-96.0); PLATELET COUNT, AUTOMATED 142 10^3/uL (150-450); RED BLOOD COUNT 3.54 10^6/uL (4.00-5.40); WHITE BLOOD COUNT 5.4 10^3/uL (4.0-10.0)
[2020-02-20 07:03] LABS: BLOOD UREA NITROGEN 13 MG/DL (7-18); CARBON DIOXIDE LEVEL 26 MEQ/L (21-32); CHLORIDE LEVEL 105 MEQ/L (98-107); CREATININE FOR GFR 0.94 MG/DL (0.55-1.30); GLOMERULAR FILTRATION RATE > 60.0 (>45); GLUCOSE, FASTING 106 MG/DL (70-100); MAGNESIUM LEVEL 1.4 MG/DL (1.8-2.4); SODIUM LEVEL 138 MEQ/L (136-145)
[2020-02-20] MEDS ORDERED: MAG SULF 1GM/100ML (MAG RUN) 1 GM in IV 1 EA IV ONE (07:45)
--- NOTE | 2020-02-20 08:49 | IPNPDOC ---
Text Note Date of Service The patient was seen on 02/20/20. NOTE Patient seen and examined. She still complains of pain in her left foot especially toes and knee. States it was bad about 5 AM, received pain med and now resting comfortably. On my exam, faint monophasic left DP, mono PT Doppler signals. Her foot is warm and no skin changes, gangrene, or ulcers noted. Rt groin site with dressing intact no bleeding. Continue with tPA thrombolysis in the left lower extremity as per Dr Blanco. Plan is for repeat LLE angiogram today with possible removal of Tpa thrombolysis catheter, possible angioplasty, possible stent. She is currently nothing by mouth after midnight. VS,Fishbone, I+O VS, Fishbone, I+O Laboratory Tests 02/19/20 16:55 02/20/20 06:00 Vital Signs Date Time Temp Pulse Resp B/P (MAP) Pulse Ox O2 Delivery O2 Flow Rate FiO2 02/20/20 08:23 14 95 Nasal Cannula 2.0 02/20/20 07:00 75 125/57 (79) 02/20/20 04:00 97.5 I&O- Last 24 Hours up to 6 AM 02/20/20 05:59 Intake Total 1126 ml Balance 1126 ml Andreea Beaver Feb 20, 2020 08:49
[2020-02-20] MEDS: ALTEPLASE RECOMBINANT 25 MG in NS 225 ML IV SCH (09:32)
[2020-02-20] MEDS: HEPARIN DRIP 25,000 UNITS in IV 1 EA IV SCH (09:58)
[2020-02-20] MEDS: DOCUSATE SODIUM 100 MG CAP PO SCH ×2 (09:59→20:21)
[2020-02-20] MEDS: GABAPENTIN 300 MG CAP PO SCH ×3 (09:59→20:19)
[2020-02-20] MEDS: PANTOPRAZOLE 40MG TAB (PROTONIX) PO SCH ×2 (09:59→20:19)
[2020-02-20] MEDS: AMITRIPTYLINE 25 MG TAB PO SCH ×2 (09:59→20:21)
[2020-02-20] MEDS: SUCRALFATE 1 GM TAB PO SCH ×4 (10:00→21:00)
[2020-02-20] MEDS: FOLIC ACID 1 MG TAB PO SCH (10:00)
[2020-02-20] MEDS: MULTIVITAMINS/MINERALS THERAP 1 TAB PO SCH (10:00)
[2020-02-20] MEDS: DULoxetine 30 MG CAP (CYMBALTA) PO SCH (10:00)
--- NOTE | 2020-02-20 11:59 | IPNPDOC ---
Text Note Date of Service The patient was seen on 02/20/20. NOTE Subjective: Pt feeling a little better today. Pain better controlled, although had some increased pain overnight. Currently getting tpa. No changes in mentation or bleeding. Objective: Vitals: (see below) General: No acute distress, laying comfortably in bed. HEENT: Moist mucous membranes. Neck: No JVD or lymphadenopathy Cardiac: RRR, No murmurs Pulm: Clear to auscultation b/l. No wheezing, rhonchi Abd: NT/ND + BS Ext: Left foot with diminished pulses L>R, mild improvement on Left DP. Skin discoloration improved. Labs (see below) U/S LE negative for dvt; has bakers cyst. CTA Abd/LE IMPRESSION: 1. 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 Collateral vessels caused a reconstruction of this vessel after 4 cm gap. 2. Small questionably moderate stenosis 2 right renal arteries. If this is an area of further concern, dedicated renal artery CT angiogram with very thin section imaging and thin section reconstructions due to these being small vessels. 3. Other incidental findings stable the abdomen and pelvis cavity with the exception of resolution of the left effusion. Aortofemoral arteriogram INTERPRETATION: 1. The aortoiliac arterial vessels are widely patent. There is no stenosis noted at the distal aorta, the common iliac arteries, the hypogastric arteries, or the external iliac arteries bilaterally. 2. The left superficial femoral artery and profunda are widely patent. There is excellent flow in the proximal popliteal artery but it abruptly occludes at the thrombosed aneurysm and reconstitutes at the distal popliteal artery from collaterals from the genicular vessels. There is then excellent runoff through the anterior tibial artery, posterior tibial artery, and peroneal artery, although the best of the 3 vessels is the posterior tibial artery which is the m ost rapid flow to the distal foot. 3. After crossing through the occlusion in the popliteal aneurysm on the left, contrast injection confirmed we are in the true lumen and there was good runoff through the tibial vessels. TPA lysis catheter placement was confirmed with imaging. 64 year old female with Rheumatoid arthritis, osteoarthritis, fibromyalgia, chronic neck and back pain follows at pain clinic, obesity, HOPE, COPD, GERD, hypothyroid, peptic ulcer disease presented to ED for left foot and toe pain. Patient reported that left foot has nerve damage and she reported that all the toes on the left foot has been extremely painful with pain extending up the foot to the leg. The pain started on November 17 and the pain has been increasing since then. It is 10/10, burning and stinging in character, and has numbness of the foot. She was seen by pain clinic last week and told to come to ED but she did not want to come. She was and started on antibiotics by PMD and was seen today for follow up and then sent to the ED for evaluation for DVT. US of the leg shows a popiteal cyst but no DVT. She is admitted for pain control and evaluation of the toe and foot pain. Thrombosed left popliteal artery aneurysm s/p Ultrasound-guided access right common femoral artery, Aortoiliofemoral arteriogram with left lower extremity runoff, Placement of a 20 cm infusion length catheter left lower extremity from tibioperoneal trunk to distal SFA for TPA thrombolysis 02/18 - CTA (see above) - Appreciate Dr. Blanco's input - pain control - Tpa until this afternoon for re-eval per Dr. Blanco. - Plan is for repeat LLE angiogram today with possible removal of Tpa thrombolysis catheter, possible angioplasty, possible stent Back pain with Radiculopathy - Ortho consulted RA/Fibromyalgia continue home meds Hypothyroid synthroid COPD albuterol prn Hypertension HCTZ. GERD/Peptic ulcer disease continue PPI. Monitor in ICU VS,Fishbone, I+O VS, Fishbone, I+O Laboratory Tests 02/19/20 16:55 02/20/20 06:00 Vital Signs Date Time Temp Pulse Resp B/P (MAP) Pulse Ox O2 Delivery O2 Flow Rate FiO2 02/20/20 11:00 69 14 120/57 (78) 96 Nasal Cannula 2.0 02/20/20 08:00 97.8 I&O- Last 24 Hours up to 6 AM 02/20/20 06:00 Intake Total 1154 ml Output Total 700 ml Balance 454 ml AUSTIN CAREY MD Feb 20, 2020 11:59
[2020-02-20] MEDS ORDERED: LIDOCAINE 1% MDV 20ML VIAL As Ordered ONE (15:53)
[2020-02-20] MEDS ORDERED: ISOVUE-300 61% 50ML VIAL As Ordered ONE (15:53)
[2020-02-20] MEDS ORDERED: MIDAZOLAM INJ 2MG/2ML VIAL (J2250 PER 1MG) As Ordered ONE (16:36)
[2020-02-20] MEDS ORDERED: fentaNYL 100 MCG/2 ML INJECTION (J3010) As Ordered ONE (16:36)
--- NOTE | 2020-02-20 18:48 | ROOPDOC ---
[facility] Report Of Operation Report of Operation DATE OF PROCEDURE: 02/20/20 PREPROCEDURE DIAGNOSES: Thrombosed left popliteal artery aneurysm status post TPA thrombolysis catheter placement POSTPROCEDURE DIAGNOSES: Same PROCEDURE: 1. Planned repeat arteriogram left lower extremity from existing sheath and catheter 2. Mynx closure right common femoral artery SURGEON: Meaghan Blanco MD ANESTHESIA: Local anesthesia was not used for this procedure since the patient already had a sheath in place in the right common femoral artery. Additionally, the patient did not receive full sedation because we did not do an additional procedure other than arteriogram through the existing sheath. She did however receive 25 g IV fentanyl to make her more comfortable while we held pressure on her right groin. She tolerated this well and her vitals remained stable. 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 Risks benefits and alternatives to the procedure were explained to the patient she is agreeable to proceed. Informed consent was obtained. INTERPRETATION: 1. The superficial femoral artery and tibial arteries are still widely patent, although the tibial arteries are only receiving flow from the genicular vessels around the knee. There is almost no improvement in flow through the popliteal artery aneurysm. Although her perfusion is not optimal, it is stable and maybe e venessa a little bit better than when she was admitted. REPORT OF OPERATION: The patient was brought to the angiographic suite in stable condition. Her right groin and catheter and sheath were prepped and draped in sterile fashion. A timeout was performed. An arteriogram was performed through the existing sheath and catheter, and no significant improvement in flow was noted through the popliteal artery aneurysm thrombosis. There was still patent flow through the SFA, around the occlusion through the genicular vessels, to the tibial vessels. However, no marked improvement was noted in flow. We therefore exchange the sheath over wire for short 7 Moroc[place] sheath and deployed a Mynx closure device with good hemostasis. Because the patient had had TPA and heparin, we held pressure for 30 minutes to ensure good hemostasis. Sterile dressings were applied. She was then taken back to the ICU in stable condition. ESTIMATED BLOOD LOSS: Approximately 5 mL. COMPLICATIONS: NONE. PLAN: I discussed with the patient, her daughter Maria M, and our hospitalist team that the patient will need an above-knee to below-knee bypass. Unfortunately, if the thrombus is chronic, TPA often is unsuccessful. We were not sure of the chronicity of the thrombus preprocedure, as the patient's sy mptoms have waxed and waned and changed over the past 3 months, and she was not sure when her exact symptoms in the left lower extremity began. She felt fairly certain that the majority of her symptoms began 3 weeks ago. Therefore, we are hopeful that TPA would be successful and we could provide her an endovascular option to revascularize her left lower extremity. However we will need to go to Plan B which is the bypass. I explained to the patient and her daughter that despite his being an open surgery, and despite her chronic pain issues making everything a bit harder, I really feel the bypass may be an even better long- term option once we get through the acute period after surgery. I think it will provide better long-term revascularization, as stent patency can vary patient to patient. We will schedule this outpatient. The patient will need a stress test and cardiac clearance prior to surgery. She is agreeable to this plan. We appreciate the opportunity to participate in the care of this patient. MEAGHAN BLANCO MD Feb 20, 2020 18:48
[2020-02-20] MEDS: APIXABAN 5 MG TAB (ELIQUIS) PO SCH (20:21)
[2020-02-20] MEDS: MIRTAZAPINE 7.5MG PER 1/2 TABLET PO SCH (20:24)
[2020-02-20] MEDS: traZODone 100 MG TAB PO SCH (22:00)
[2020-02-21] VITALS (8 sets, daily range): BP systolic 101–134; BP diastolic 55–75
[2020-02-21] MEDS: diazePAM 5 MG TAB PO PRN (02:41)
[2020-02-21] MEDS: HYDROMORPHONE HCL 0.5 MG/ 0.5 ML SYRINGE (J1170 PER 1) IV PRN ×4 (02:43→15:03)
[2020-02-21] MEDS: LEVOTHYROXINE 25MCG TABLET (0.025MG) PO SCH (05:00)
[2020-02-21] MEDS: SLF 3 ML SYR IV SCH ×3 (05:01→20:27)
[2020-02-21 05:09] LABS: HEMATOCRIT 29.7 % (36.0-47.0); HEMOGLOBIN 9.6 g/dl (12.0-15.5); MEAN CORPUSCULAR HEMOGLOBIN 29.6 pg (27.0-33.0); MEAN CORPUSCULAR HGB CONC 32.3 g/dl (32.0-36.5); MEAN CORPUSCULAR VOLUME 91.7 fl (80.0-96.0); PLATELET COUNT, AUTOMATED 136 10^3/uL (150-450); RED BLOOD COUNT 3.24 10^6/uL (4.00-5.40); WHITE BLOOD COUNT 5.5 10^3/uL (4.0-10.0)
[2020-02-21 05:30] LABS: BLOOD UREA NITROGEN 10 MG/DL (7-18); CALCIUM LEVEL 9.2 MG/DL (8.8-10.2); CARBON DIOXIDE LEVEL 32 MEQ/L (21-32); CHLORIDE LEVEL 103 MEQ/L (98-107); CREATININE FOR GFR 0.89 MG/DL (0.55-1.30); GLOMERULAR FILTRATION RATE > 60.0 (>45); GLUCOSE, FASTING 97 MG/DL (70-100); MAGNESIUM LEVEL 1.4 MG/DL (1.8-2.4); POTASSIUM SERUM 4.5 MEQ/L (3.5-5.1); SODIUM LEVEL 139 MEQ/L (136-145)
[2020-02-21] MEDS: DOCUSATE SODIUM 100 MG CAP PO SCH ×2 (08:16→20:25)
[2020-02-21] MEDS: MAG SULF 1GM/100ML (MAG RUN) 1 GM in IV 1 EA IV SCH ×2 (08:16→08:45)
[2020-02-21] MEDS: MULTIVITAMINS/MINERALS THERAP 1 TAB PO SCH (08:16)
[2020-02-21] MEDS: GABAPENTIN 300 MG CAP PO SCH ×3 (08:16→20:25)
[2020-02-21] MEDS: APIXABAN 5 MG TAB (ELIQUIS) PO SCH ×2 (08:16→20:25)
[2020-02-21] MEDS: DULoxetine 30 MG CAP (CYMBALTA) PO SCH (08:16)
[2020-02-21] MEDS: SUCRALFATE 1 GM TAB PO SCH ×4 (08:16→20:26)
[2020-02-21] MEDS: AMITRIPTYLINE 25 MG TAB PO SCH ×2 (08:17→20:26)
[2020-02-21] MEDS: FOLIC ACID 1 MG TAB PO SCH (08:17)
[2020-02-21] MEDS: PANTOPRAZOLE 40MG TAB (PROTONIX) PO SCH ×2 (08:17→20:25)
[2020-02-21] MEDS: PERCOCET 5MG/325MG TAB PO PRN ×2 (08:44→16:08)
--- NOTE | 2020-02-21 10:51 | IPNPDOC ---
Text Note Date of Service The patient was seen on 02/21/20. NOTE Subjective:Pt feeling better today; notes she may have pain in RLE but goal is to control it and be able to ambulate with PT. No changes in mentation or bleeding. Objective: Vitals: (see below) General: No acute distress, laying comfortably in bed. HEENT: Moist mucous membranes. Neck: No JVD or lymphadenopathy Cardiac: RRR, No murmurs Pulm: Clear to auscultation b/l. No wheezing, rhonchi Abd: NT/ND + BS Ext: Left foot with diminished pulses L>R; however present, mild improvement on Left DP. Skin discoloration improved. Labs (see below) U/S LE negative for dvt; has bakers cyst. CTA Abd/LE IMPRESSION: 1. 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 Collateral vessels caused a reconstruction of this vessel after 4 cm gap. 2. Small questionably moderate stenosis 2 right renal arteries. If this is an area of further concern, dedicated renal artery CT angiogram with very thin section imaging and thin section reconstructions due to these being small vessels. 3. Other incidental findings stable the abdomen and pelvis cavity with the exception of resolution of the left effusion. Aortofemoral arteriogram INTERPRETATION: 1. The aortoiliac arterial vessels are widely patent. There is no stenosis noted at the distal aorta, the common iliac arteries, the hypogastric arteries, or the external iliac arteries bilaterally. 2. The left superficial femoral artery and profunda are widely patent. There is excellent flow in the proximal popliteal artery but it abruptly occludes at the thrombosed aneurysm and reconstitutes at the distal popliteal artery from collaterals from the genicular vessels. There is then excellent runoff through the anterior tibial artery, posterior tibial artery, and peroneal artery, although the best of the 3 vessels is the posterior tibial artery which is the most rapid flow to the distal foot. 3. After crossing through the occlusion in the popliteal aneurysm on the left, contrast injection confirmed we are in the true lumen and there was good runoff through the tibial vessels. TPA lysis catheter placement was confirmed with imaging. 64 year old female with Rheumatoid arthritis, osteoarthritis, fibromyalgia, chronic neck and back pain follows at pain clinic, obesity, HOPE, COPD, GERD, hypothyroid, peptic ulcer disease presented to ED for left foot and toe pain. Patient reported that left foot has nerve damage and she reported that all the toes on the left foot has been extremely painful with pain extending up the foot to the leg. The pain started on November 17 and the pain has been increasing since then. It is 10/10, burning and stinging in character, and has numbness of the foot. She was seen by pain clinic last week and told to come to ED but she did not want to come. She was and started on antibiotics by PMD and was seen today for follow up and then sent to the ED for evaluation for DVT. US of the leg shows a popiteal cyst but no DVT. She is admitted for pain control and evaluation of the toe and foot pain. Thrombosed left popliteal artery aneurysm s/p Ultrasound-guided access right common femoral artery, Aortoiliofemoral arteriogram with left lower extremity runoff, Placement of a 20 cm infusion length catheter left lower extremity from tibioperoneal trunk to distal SFA for TPA thrombolysis 02/18 - CTA (see above) - Appreciate Dr. Blanco's input - pain control - Tpa until this afternoon for re-eval per Dr. Blanco. - Plan is for repeat LLE angiogram 02/19removal of Tpa thrombolysis catheter - Plan for outpt stress test/cardiac clearance and likely above-below knee bypass. - Started on Eliquis per Dr. Blanco Back pain with Radiculopathy - Ortho consulted RA/Fibromyalgia continue home meds Hypothyroid synthroid COPD albuterol prn Hypertension HCTZ. GERD/Peptic ulcer disease continue PPI. D/c pending PT and vascular surg clearance. VS,Fishbone, I+O VS, Fishbone, I+O Laboratory Tests 02/21/20 04:40 Vital Signs Date Time Temp Pulse Resp B/P (MAP) Pulse Ox O2 Delivery O2 Flow Rate FiO2 02/21/20 09:00 98.4 79 22 116/57 (76) 93 Nasal Cannula 2.0 I&O- Last 24 Hours up to 6 AM 02/21/20 06:00 Intake Total 1084 ml Output Total 2150 ml Balance -1066 ml AUSTIN CAREY MD Feb 21, 2020 10:51
--- NOTE | 2020-02-21 10:58 | IPNPDOC ---
Date Seen The patient was seen on 02/21/20. Progress Note Patient seen and examined status post removal TPA thrombolysis catheter for left thrombosed popliteal artery aneurysm. Since we were unable to improve her perfusion with TPA due to the chronicity of the clot, we plan to do an above- knee to below-knee bypass. The patient says her left leg feels better today than it did yesterday, and she is tolerating the eliquis without significant bleeding or bruising right groin access site. She does have signals in the left foot, but there monophasic. She has good collateral flow around the popliteal aneurysm occlusion from genicular vessels at the knee. However, long-term this is not adequate and we will need a bypass to improve her flow. We will obtain a vein mapping of the greater saphenous veins bilaterally today. The patient says she thinks she can handle this with her fibromyalgia and chronic pain as well as decreased perfusion in the left lower extremity. She is sitting up eating lunch and seems very comfortable right now, and she is asking if she could go home, but my concern is her weightbearing status and unsteadiness on her feet. I think it would be best if we obtained a PT eval to see if she is safe for home. Her daughter Maria M said she may come up to stay with her until her bypass surgery to help out, which would be great. We still plan for appropriate primary clearance and cardiac a clearance with stress test outpatient prior to surgery. We appreciate the opportunity to participate in the care of this patient. VS, I&O, 24H, Fishbone Vital Signs/I&O Vital Signs Date Time Temp Pulse Resp B/P (MAP) Pulse Ox O2 Delivery O2 Flow Rate FiO2 02/21/20 09:00 98.4 79 22 116/57 (76) 93 Nasal Cannula 2.0 I&O- Last 24 Hours up to 6 AM 02/21/20 06:00 Intake Total 1084 ml Output Total 2150 ml Balance -1066 ml Laboratory Data 24H LABS Laboratory Tests 2 02/21/20 04:40: Nucleated Red Blood Cells % (auto) 0.0, Anion Gap 4L, Glomerular Filtration Rate > 60.0, Calcium Level 9.2, Magnesium Level 1.4L CBC/BMP Laboratory Tests 02/21/20 04:40 Microbiology Microbiology 02/18/20 Stool Occult Blood (JOSE) - Final, Complete 02/15/20 Blood Culture - Final, Complete NO GROWTH AFTER 5 DAYS 02/15/20 Blood Culture - Preliminary, Resulted No Growth after 72 hours. All specime... MERCEDES PIERRE MD Feb 21, 2020 10:58
--- NOTE | 2020-02-21 12:39 | REPVR ---
PROCEDURE INFORMATION: Exam: US Duplex Lower Extremity Veins, Bilateral Exam date and time: 02/21/2020 12:04 PM Age: 64 years old Clinical indication: Condition or disease; Embolism or thrombosis; Lower extremity, left; Patient HX: Lt pop a occlusion eval for bypass gsv; Additional info: Vein mapping b gsv only, no lsv, for preop bypass TECHNIQUE: Imaging protocol: Real-time duplex ultrasound of the extremities with 2-D perez scale, color Doppler flow and spectral waveform analysis with image documentation. Complete exam focused on the bilateral lower extremity veins. COMPARISON: US Duplex, Ext,LOWER veins,unilat LEFT 02/15/2020 8:42 PM FINDINGS: Right deep veins: Unremarkable. The common femoral, femoral, proximal profunda femoral and popliteal veins are patent without thrombus. Normal Doppler waveforms. Normal compressibility and/or augmentation response. Right superficial veins: Patent without thrombus. Right greater saphenous vein: Junction: 3.9 mm Upper thigh: 2.0 mm Mid thigh: 1.9 mm Knee: 2.0 mm Proximal le.9 mm Mid le.5 mm Left deep veins: Unremarkable. The common femoral, femoral, proximal profunda femoral and popliteal veins are patent without thrombus. Normal Doppler waveforms. Normal compressibility and/or augmentation response. Left superficial veins: Patent without thrombus. Left greater saphenous vein: Junction: 4.0 mm Upper thigh: 23.2 mm Mid thigh: 3.4 mm Knee: 3.7 mm Proximal le.2 mm Mid le.3 mm Soft tissues: Right popliteal fossa 2.5 x 1.5 x 1.7 cm Mojica cyst containing anechoic fluid. Left popliteal fossa 4.7 x 2.5 x 2.8 cm Mojica cyst, containing internal mixed echogenicity and partial septations. IMPRESSION: No evidence of deep vein thrombosis. Bilateral Mojica cysts, complicated on the left. Bilateral greater saphenous venous mapping as above. Electronically signed by: Sandro Claros On 02/21/2020 12:39:57 PM
[2020-02-21] MEDS ORDERED: MORPHINE SULFATE ORAL SOLN 10 MG/5 ML UD PO PRN (16:15)
[2020-02-21] MEDS ORDERED: traMADol 50 MG TAB PO PRN (18:45)
[2020-02-21] MEDS: traZODone 100 MG TAB PO SCH (20:25)
[2020-02-21] MEDS: MIRTAZAPINE 7.5MG PER 1/2 TABLET PO SCH (20:26)
[2020-02-22] MEDS: PERCOCET 5MG/325MG TAB PO PRN ×3 (01:08→14:35)
[2020-02-22] MEDS: LEVOTHYROXINE 25MCG TABLET (0.025MG) PO SCH (05:35)
[2020-02-22] MEDS: SLF 3 ML SYR IV SCH ×2 (05:36→14:22)
[2020-02-22 06:00] VITALS: BP 131/74
[2020-02-22 06:48] LABS: HEMATOCRIT 29.1 % (36.0-47.0); HEMOGLOBIN 9.1 g/dl (12.0-15.5); MEAN CORPUSCULAR HEMOGLOBIN 28.7 pg (27.0-33.0); MEAN CORPUSCULAR HGB CONC 31.3 g/dl (32.0-36.5); MEAN CORPUSCULAR VOLUME 91.8 fl (80.0-96.0); PLATELET COUNT, AUTOMATED 149 10^3/uL (150-450); RED BLOOD COUNT 3.17 10^6/uL (4.00-5.40); WHITE BLOOD COUNT 5.5 10^3/uL (4.0-10.0)
[2020-02-22 07:16] LABS: BLOOD UREA NITROGEN 12 MG/DL (7-18); CALCIUM LEVEL 8.7 MG/DL (8.8-10.2); CARBON DIOXIDE LEVEL 30 MEQ/L (21-32); CHLORIDE LEVEL 104 MEQ/L (98-107); CREATININE FOR GFR 0.84 MG/DL (0.55-1.30); GLOMERULAR FILTRATION RATE > 60.0 (>45); GLUCOSE, FASTING 93 MG/DL (70-100); MAGNESIUM LEVEL 1.7 MG/DL (1.8-2.4); POTASSIUM SERUM 3.7 MEQ/L (3.5-5.1); SODIUM LEVEL 140 MEQ/L (136-145)
[2020-02-22] MEDS ORDERED: MAG SULF 1GM/100ML (MAG RUN) 1 GM in IV 1 EA IV ONE (07:30)
[2020-02-22] MEDS: FOLIC ACID 1 MG TAB PO SCH (08:15)
[2020-02-22] MEDS: DULoxetine 30 MG CAP (CYMBALTA) PO SCH (08:15)
[2020-02-22] MEDS: GABAPENTIN 300 MG CAP PO SCH (08:15)
[2020-02-22] MEDS: PANTOPRAZOLE 40MG TAB (PROTONIX) PO SCH (08:15)
[2020-02-22] MEDS: APIXABAN 5 MG TAB (ELIQUIS) PO SCH (08:15)
[2020-02-22] MEDS: DOCUSATE SODIUM 100 MG CAP PO SCH (08:15)
[2020-02-22] MEDS: MULTIVITAMINS/MINERALS THERAP 1 TAB PO SCH (08:15)
[2020-02-22] MEDS: AMITRIPTYLINE 25 MG TAB PO SCH (08:15)
--- NOTE | 2020-02-22 08:56 | IPNPDOC ---
Text Note Date of Service The patient was seen on 02/22/20. NOTE Vascular Surgery Dr Blanco. Patient seen and examined status post removal TPA thrombolysis catheter for left thrombosed popliteal artery aneurysm. Since we were unable to improve her perfusion with TPA due to the chronicity of the clot, we plan to do an above- knee to below-knee bypass. The patient says her left leg feels good today, and she is tolerating the eliquis. There is no bleeding or bruising at the right groin access site. She does have good doppler signals in the left foot, monophasic. She has good collateral flow around the popliteal aneurysm occlusion from genicular vessels at the knee. However, long-term this is not adequate and will need a bypass to improve her flow. Vein mapping of the greater saphenous veins bilaterally obtained 02/21/20 in p reparation for above knee to below knee popliteal artery bypass procedure. Plan is for appropriate primary clearance and cardiac a clearance with stress test outpatient prior to surgery. PT eval of patient for home 02/21/20: not safe. May need assistance or rehab? We appreciate the opportunity to participate in the care of this patient. VS,Fishbone, I+O VS, Fishbone, I+O Laboratory Tests 02/22/20 06:29 Vital Signs Date Time Temp Pulse Resp B/P (MAP) Pulse Ox O2 Delivery O2 Flow Rate FiO2 02/22/20 08:26 18 02/22/20 06:00 97.0 87 131/74 (93) 93 Room Air 02/21/20 12:00 2.0 I&O- Last 24 Hours up to 6 AM 02/22/20 05:59 Intake Total 2194 ml Output Total 750 ml Balance 1444 ml Andreea Beaver Feb 22, 2020 08:56 MERCEDES BLANCO MD Feb 22, 2020 14:29
[2020-02-22] MEDS: SUCRALFATE 1 GM TAB PO SCH (09:52)
[2020-02-22] MEDS ORDERED: DOCU100C16 PO (11:56)
[2020-02-22] MEDS ORDERED: ELIQ5TAB PO (11:56)
--- NOTE | 2020-02-22 12:43 | DS.PDOC ---
Discharge Summary General Date of Admission Feb 15, 2020 at 23:41 Date of Discharge 02/22/20 Attending Physician: AUSTIN CAREY MD Specialist/Consultants Involve: MERCEDES BLANCO MD Discharge Summary PROCEDURES PERFORMED DURING STAY: None. ADMITTING/DISCHARGE DIAGNOSES: 1. Thrombosed left popliteal artery aneurysm s/p Ultrasound-guided access right common femoral artery, Aortoiliofemoral arteriogram with left lower extremity runoff, Placement of a 20 cm infusion length catheter left lower extremity from tibioperoneal trunk to distal SFA for TPA thrombolysis 02/18 2. Back pain with Radiculopathy 3. RA/Fibromyalgia 4. Hypothyroid 5. Hypertension 6. GERD/Peptic ulcer disease COMPLICATIONS/CHIEF COMPLAINT: Left foot pain HISTORY OF PRESENT ILLNESS/HOSPITAL COURSE: 64 year old female with Rheumatoid arthritis, osteoarthritis, fibromyalgia, chronic neck and back pain follows at pain clinic, obesity, HOPE, COPD, GERD, hypothyroid, peptic ulcer disease presented to ED for left foot and toe pain. Patient reported that left foot has nerve damage and she reported that all the toes on the left foot has been extremely painful with pain extending up the foot to the leg. The pain started on November 17 and the pain has been increasing since then. It is 10/10, burning and stinging in character, and has numbness of the foot. She was seen by pain clinic last week and told to come to ED but she did not want to come. She was and started on antibiotics by PMD and was seen today for follow up and then sent to the ED for evaluation for DVT. US of the leg shows a popiteal cyst but no DVT. She is admitted for pain control and evaluation of the toe and foot pain. Thrombosed left popliteal artery aneurysm s/p Ultrasound-guided access right common femoral artery, Aortoiliofemoral arteriogram with left lower extremity runoff, Placement of a 20 cm infusion length catheter left lower extremity from tibioperoneal trunk to distal SFA for TPA thrombolysis 02/18 - CTA (see above) - Appreciate Dr. Blanco's input - pain control - s/p Tpa with Dr. Blanco; however no significant. - Plan for outpt stress test/cardiac clearance and likely above-below knee bypass. - Started on Eliquis per Dr. Blanco. Pt understands risks of bleeding/benefits; agreeable. Back pain with Radiculopathy - Ortho consulted - recc outpt f/u with her orthopedics in [place]. Dr. Beckwith examined pt and does not recc any further imaging. RA/Fibromyalgia continue home meds Hypothyroid synthroid COPD albuterol prn Hypertension HCTZ. GERD/Peptic ulcer disease continue PPI. DISCHARGE MEDICATIONS: Please see below. ALLERGIES: Please see below. PHYSICAL EXAMINATION ON DISCHARGE: Vitals: (see below) General: No acute distress, laying comfortably in bed. HEENT: Moist mucous membranes. Neck: No JVD or lymphadenopathy Cardiac: RRR, No murmurs Pulm: Clear to auscultation b/l. No wheezing, rhonchi Abd: NT/ND + BS Ext: Left foot with diminished pulses L>R; however improved. Skin discoloration improved. Strength 5/5 BUE Images CTA Abd/LE IMPRESSION: 1. 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 Collateral vessels caused a reconstruction of this vessel after 4 cm gap. 2. Small questionably moderate stenosis 2 right renal arteries. If this is an area of further concern, dedicated renal artery CT angiogram with very thin section imaging and thin section reconstructions due to these being small vessels. 3. Other incidental findings stable the abdomen and pelvis cavity with the exception of resolution of the left effusion. Aortofemoral arteriogram INTERPRETATION: 1. The aortoiliac arterial vessels are widely patent. There is no stenosis noted at the distal aorta, the common iliac arteries, the hypogastric arteries, or the external iliac arteries bilaterally. 2. The left superficial femoral artery and profunda are widely patent. There is excellent flow in the proximal popliteal artery but it abruptly occludes at the thrombosed aneurysm and reconstitutes at the distal popliteal artery from collaterals from the genicular vessels. There is then excellent runoff through the anterior tibial artery, posterior tibial artery, and peroneal artery, although the best of the 3 vessels is the posterior tibial artery which is the most rapid flow to the distal foot. 3. After crossing through the occlusion in the popliteal aneurysm on the left, contrast injection confirmed we are in the true lumen and there was good runoff through the tibial vessels. TPA lysis catheter placement was confirmed with imaging. LABORATORY DATA: Please see below. PROGNOSIS: ACTIVITY: As tolerated. DIET: Low Na DISCHARGE PLAN/DISPOSITION: Home with rolling walker DISCHARGE INSTRUCTIONS: 1.F/u with PCP, Dr. Blanco, Cardiology, Orthopedics, pain management in 1 week. Return to ED if symptoms worsen. DISCHARGE CONDITION: Stable. TIME SPENT ON DISCHARGE: 36 minutes. Vital Signs/I&Os Vital Signs Date Time Temp Pulse Resp B/P (MAP) Pulse Ox O2 Delivery O2 Flow Rate FiO2 02/22/20 09:45 16 02/22/20 06:00 97.0 87 131/74 (93) 93 Room Air 02/21/20 12:00 2.0 I&O- Last 24 Hours up to 6 AM 02/22/20 06:00 Intake Total 2194 ml Output Total 750 ml Balance 1444 ml Laboratory Data Labs 24H Laboratory Tests 2 02/22/20 06:29: Nucleated Red Blood Cells % (auto) 0.0, Anion Gap 6L, Glomerular Filtration Rate > 60.0, Calcium Level 8.7L, Magnesium Level 1.7L CBC/BMP Laboratory Tests 02/22/20 06:29 Microbiology Microbiology 02/18/20 Stool Occult Blood (JOSE) - Final, Complete 02/15/20 Blood Culture - Final, Complete NO GROWTH AFTER 5 DAYS 02/15/20 Blood Culture - Final, Complete NO GROWTH AFTER 5 DAYS Discharge Medications Scheduled Apixaban (Eliquis) 5 Mg Tablet, 5 MG PO BID Docusate Sodium (Docusate Sodium) 100 Mg Capsule, 100 MG PO BID Duloxetine HCl (Duloxetine HCl) 60 Mg Capsule.dr, 60 MG PO DAILY, (Reported) Ergocalciferol (Vitamin D2) (Vitamin D2) 50,000 Units Cap, 50,000 UNITS PO 2XWK, (Reported) WEDNESDAY AND WEDNESDAY Folic Acid (Folic Acid) 1 Mg Tablet, 1 MG PO DAILY, (Reported) Gabapentin (Gabapentin) 600 Mg Tablet, 600 MG PO TID, (Reported) Leflunomide (Arava) 10 Mg Tablet, 10 MG PO DAILY, (Reported) Levothyroxine Sodium (Synthroid) 25 Mcg Tablet, 25 MCG PO DAILY, (Reported) Mirtazapine (Mirtazapine) 7.5 Mg Tablet, 7.5 MG PO QHS, (Reported) Multivitamins (Thera M Plus Tablet) 1 Each Tablet, 1 TAB PO DAILY, (Reported) Pantoprazole Sodium (Pantoprazole Sodium) 40 Mg Tab, 40 MG PO DAILY, (Reported) Sucralfate (Carafate) 1 Gm Tablet, 1 GM PO TID, (Reported) 4 times per day take on an empty stomach Trazodone HCl (Trazodone HCl) 150 Mg Tablet, 300 MG PO QHS, (Reported) Zolpidem Tartrate (Zolpidem Tartrate) 10 Mg Tablet, 10 MG PO QHS, (Reported) Scheduled PRN Albuterol Sulfate (Proair Hfa) 8.5 Gm Hfa.aer.ad, 2 PUFF INH Q4H PRN for SHORTNESS OF BREATH, (Reported) Oxycodone HCl/Acetaminophen (Percocet 10-325 mg Tablet) 1 Each Tablet, 1 TAB PO Q4H PRN for PAIN, (Reported) Tramadol HCl (Tramadol HCl) 50 Mg Tab, 50 MG PO BID PRN for PAIN, (Reported) Allergies Coded Allergies: ciprofloxacin (Verified Allergy, Severe, ANGIOEDEMA, 02/15/20) Sulfa (Sulfonamide Antibiotics) (Verified Allergy, Intermediate, HIVES, 02/15/20) ropinirole (Verified Allergy, Intermediate, RASH, 02/15/20) sulfasalazine (Verified Allergy, Intermediate, HIVES, 02/15/20) methocarbamol (Verified Allergy, Mild, RASH, 02/15/20) pregabalin (Verified Adverse Reaction, Intermediate, MEMORY LOSS, 02/15/20) AUSTIN CAREY MD Feb 22, 2020 12:43
[2020-02-22 14:00] VITALS: BP 123/80
--- NOTE | 2020-03-05 10:11 | CR ---
DATE: 02/16/2020 ATTENDING PHYSICIAN: Dr. Beckwith CHIEF COMPLAINT: Back pain, longstanding urinary incontinence, and leg symptoms. HISTORY: This is a 64-year-old female patient, actually seen in our clinic for back pain, when she was sent to the pain center for symptoms. Patient has had a prior infusion done in [place]. She mead here. Generally lives in [place]. At that point, she had had persistent back pain when we had seen her in November, down both legs, her left a little greater than her right. She had then had an updated MRI done on 12/28/2019. It was notable for multilevel degenerative changes, status post fusion but no central stenosis. No large disc herniations were noted at that point. At the time of that visit, patient had noted urinary incontinence that had been going on for greater than a year, mainly stress incontinence. She does admit she has often had since then intermittent fecal incontinence that she just cannot make it to the bathroom quick enough. She does not have any incontinence at nighttime and seems only when she is awake. She notes her back pain is very similar to what it was when she went to the orthopedic clinic and very similar to the pain that sent her to the pain center. She denies any new injuries. She does note that she is unable to move as quickly due to her current arterial occlusion injury to her left leg, and it is noted the urinary incontinence seems to be more problematic, as she is not able to get to the bathroom. She denies any saddle anesthesia. Denies any numbness around the anus or around the vagina. She can feel the toilet paper when she wipes. She denies any cough or sneeze effect. She is not currently ambulating due to her other conditions. She does carry a history of rheumatoid arthritis, fibromyalgia, chronic neck and back pain, obesity, sleep apnea, chronic obstructive pulmonary disease (COPD), gastric reflux disease, hypothyroidism, and peptic ulcer disease. ALLERGIES: CIPROFLOXACIN, SULFA, ROPINIROLE, as well as SULFA MEDICATIONS, METHOCARBAMOL AND PRAGABALIN. MEDICAL HISTORY: As above. SURGICAL HISTORY: 1. History of eye surgery. 2. Two sections. 3. Breast reduction. 4. Gastric bypass. 5. Gallbladder surgery. 6. Bilateral knee surgery. 7. Hernia repair. 8. Appendectomy. 9. Multiple colonoscopies. 10. She has a cervical fusion, C5-C7, by report. 11. Lumbar fusion. FAMILY HISTORY: Diabetes, cancer, diabetes in her mother, as well also a daughter with rheumatoid arthritis. SOCIAL HISTORY: She is a nonsmoker. She does not use alcohol. Denies drug use. She is not currently employed. CURRENT MEDICATIONS: While in the hospital include amitriptyline, heparin, hydromorphone, Lovenox, folic acid, gabapentin, hydrochlorothiazide, multivitamins, Carafate, as well as Cymbalta, Synthroid. She is also taking milk of magnesemia, Colace, and Protonix. PHYSICAL EXAMINATION: Today reveals a female patient who appears her stated age, lying in the hospital bed. She has her left leg uncovered. Her right leg is covered. After removing the covers, her deep tendon reflexes are absent, knees, absent at the ankles. Clonus is not tested due to her history of an arterial occlusion. She lies with her legs out straight. Exam of the back does not reveal tenderness. On exam there is a well-healed surgical wound. There is also a well- healed surgical wound around the cervical spine. Zamorano's is negative. Spurling's is negative on exam today. Muscle strength in the upper extremities seems to be grossly 5/5, equal and symmetrical in major muscle groups. Unable to be tested on the left side to her artery occlusion. Muscle strength on the left side seems grossly 5/5, equal and symmetrical in major muscle groups. Sensation in the inner thigh is intact on exam today. She appears to be alert, and she is able to understand where she is, oriented to three places. There is good eye motion without pain. There is symmetric rise and fall of the chest. Heart is regular rate and rhythm. Abdomen is somewhat distended and obese. ASSESSMENT: From an orthopedic standpoint, status post lumbar fusion with longstanding urinary incontinence and fecal incontinence for greater than 1 year as well as status post cervical fusion with chronic neck and back pain. Options would include an MRI of the cervical and lumbar spine, though it may not change the plan at this point. At some point she will need physical therapy, to be up with physical therapy, as she did note about a 40% improvement when she was going to physical therapy. When she returns to [place], she should followup with her surgeons who performed her fusion, as there may be further indications for further treatment through their office. From an orthopedic standpoint, she could be up with physical therapy when cleared by her vascular doctors and her neurologist. They could work on gait training and transitions, and then she could followup with her surgeons in [place] at some point. Again, other options would include repeating a cervical and lumbar MRI, though the lumbar MRI done in December did not show any findings that would cause the urinary incontinence that has been going on for quite some time now. That would be our recommendations from an orthopedic standpoint. Feel free to re-consult us if further information is required. Otherwise, we will defer further treatment to her hospitalist and her vascular surgeon and her neurologist. Thank you for this pleasant consult. YURIY
--- NOTE | 2020-03-05 10:17 | CR ---
DATE: 02/17/2020 REASON FOR CONSULTATION: Cerebral aneurysm. HISTORY OF PRESENT ILLNESS: The patient is a 64-year-old woman with a history of rheumatoid arthritis, osteoarthritis, fibromyalgia, chronic neck and back pain, who follows with [facility] and also has chronic migraines for which she gets Botox in [place]. She has been getting Botox for the last couple of years at [facility] in [place], [place]. She also stated that she has episodes of urinary and bowel incontinence for the last few months. The patient has been following with a neurologist in [place], [place]. The patient states that she developed severe burning pain with tingling and weakness of the left foot in October 2019. Her pain has been getting worse. She feels tingling in her left foot. She developed redness of her left foot three weeks ago. She came to the emergency department as her symptoms were worsening. She was advised by her pain specialist last week to come to the emergency department but she did not come. She was found to have left popliteal artery 3.5 cm aneurysm with thrombosis. Vascular surgery plans to do thrombolysis on Wednesday. She will be started on intravenous Heparin until then. I was consulted from a neurological standpoint as the patient was found to have 1.5 mm fusiform dilation of left internal carotid artery in cavernous sinus region. The patient states she had an MRA scan of her brain in [place] and was told that everything was stable and it looked like it was in 2017. A repeat MRA scan at [facility] was reported as normal but on review showed minimal dilation and cavernous internal carotid artery and cavernous sinus region internal carotid artery diameter increases from 3.98 to 5.4 mm. MEDICAL HISTORY: Chronic neck and back pain, chronic migraines, rheumatoid arthritis, fibromyalgia, acid reflux, hypothyroidism, osteoarthritis, insomnia, obesity, sleep apnea, [place] palsy in 2007, COPD, pulmonary embolism, vertigo, peptic ulcer disease, gastric bypass, cholecystectomy, breast reduction, bilateral knee surgery, hernia repair, appendectomy, cervical fusion, and nerve blocks in back and neck at [facility]. ALLERGIES: CIPROFLOXACIN, SULFA, ROPINIROLE, SULFASALAZINE, METHYLCARBAMOL, LYRICA. MEDICATIONS: Augmentin 875 mg p.o. twice daily. Cymbalta 60 mg p.o. daily. folic acid 1 mg p.o. daily. Gabapentin 600 mg p.o. three times daily. hydrochlorothiazide 25 mg p.o. daily. Arava 10 mg p.o. daily. Levothyroxine 25 mcg p.o. daily. mirtazapine 7.5 mg p.o. at hour of sleep. Protonix 40 mg p.o. daily. Trazodone 150 mg two tablets p.o. at hour of sleep. Ambien 10 mg p.o. at hour of sleep. sucralfate 1 gm p.o. three times daily. SOCIAL HISTORY: She denies smoking, alcohol or illicit drugs. FAMILY HISTORY: Father had diabetes and cancer. Mother had diabetes. REVIEW OF SYSTEMS: All systems were reviewed and found to be noncontributory except as per mentioned. PHYSICAL EXAMINATION: VITAL SIGNS: Temperature 96.8, pulse 64, respiratory rate 20, blood pressure 127/61, 96% saturations on room air. HEART: Heart regular rate and rhythm. LUNGS: are clear to auscultation. ABDOMEN: Abdomen soft, nontender, nondistended. EXTREMITIES: No pedal edema. MUSCULOSKELETAL: No musculoskeletal abnormalities. SKIN: No rash. No signs of meningeal irritation. NEURO: The patient is awake, alert, oriented to place, person, and time. Normal speech, comprehension, and repetition. Extraocular muscles are intact. No facial weakness. Tongue and uvula are midline, 5/5 strength in all four extremities. Deep tendon reflexes are 2+ throughout. Normal sensation. Gait is normal. She has red discoloration of her left foot. IMPRESSION: Left popliteal artery 3.5 cm aneurysm with thrombosis for which anticoagulation and thrombolysis is planned. A 1.5 mm dilation of left internal carotid artery in cavernous sinus region. Chronic headaches, neck and back pain with fibromyalgia and insomnia. PLAN: Tiny 1.5 mm internal carotid artery dilation in cavernous sinus would likely be low to medium risk for bleeding complications. Vascular surgery would explain further pros and cons of her planned anticoagulation and thrombolysis for left popliteal artery aneurysm. The patient will follow with her neurologist in [place], [place] and [facility]. YURIY
== END 2020-02-22 15:08 | disposition home or self-care (01) | DRG 254 ==
LOC: M ED 16:30 → M ED INP 23:41 → M MS5PR 02-16 02:40 → M PCU 02-16 14:35 → M MSPAV 02-17 12:40 → M ICU 02-19 09:51 → M 4MAIN 02-21 15:05 → M MSPAV 02-21 15:06
PROVIDERS: ADMIT Internal Medicine Nephrology; ATTEND Internal Medicine
PROC: 047U3ZZ Dilation of Left Peroneal Artery, Percutaneous Approach (ICD-10-PCS; 2020-02-19)
PROC: 047N3ZZ Dilation of Left Popliteal Artery, Percutaneous Approach (ICD-10-PCS; 2020-02-19)
PROC: 047U3ZZ Dilation of Left Peroneal Artery, Percutaneous Approach (ICD-10-PCS; 2020-02-19)
PROC: 047N3ZZ Dilation of Left Popliteal Artery, Percutaneous Approach (ICD-10-PCS; 2020-02-19)
PROC: B41FYZZ Fluoroscopy of Right Lower Extremity Arteries using Other Contrast (ICD-10-PCS; 2020-02-19)
PROC: 047K3ZZ Dilation of Right Femoral Artery, Percutaneous Approach (ICD-10-PCS; principal; 2020-02-19 07:30)
PROC: 047K3ZZ Dilation of Right Femoral Artery, Percutaneous Approach (ICD-10-PCS; 2020-02-20)
DX: I72.4 Aneurysm of artery of lower extremity (principal); E03.9 Hypothyroidism, unspecified; M79.7 Fibromyalgia; K21.9 Gastro-esophageal reflux disease without esophagitis; I10 Essential (primary) hypertension; M06.9 Rheumatoid arthritis, unspecified; M19.90 Unspecified osteoarthritis, unspecified site; M54.2 Cervicalgia; M54.5 Low back pain; G47.33 Obstructive sleep apnea (adult) (pediatric); J44.9 Chronic obstructive pulmonary disease, unspecified; Z79.899 Other long term (current) drug therapy; Z88.2 Allergy status to sulfonamides; Z88.8 Allergy status to other drugs, medicaments and biological substances; E66.9 Obesity, unspecified; K57.30 Diverticulosis of large intestine without perforation or abscess without bleeding

== ENCOUNTER → 2020-04-10 | Outpatient (CLI) | payer MEDICARE, MEDICAID ==
[~2020-04-10] MED LIST changes: +ARAV1TAB PO; +AUGM875T28 PO; +CARA1TAB6 PO; +DICL1GEL3; +DICL1GEL3 TOP; +DOCU100C16 PO; +DULO60CA35 PO; +ELIQ5TAB PO; +FOLI1TAB11; +FOLI1TAB11 PO; +GABA600T4; +GABA600T4 PO; +HYDR25TAB; +HYDR25TAB PO; +LEFL20TA10; +MIRT1TAB; +MIRT1TAB PO; +NABU-53 PO; +OXYC10TA3; +PERC10TA26 PO; +PROAAER10 INH; +SLOWTAB2 PO; +SYNT25TA PO; +TRAZ150T90 PO; +TRAZ1TAB14; +VITA50005; +VITA50005 PO; +VITMTA PO; +ZOLP10TA2; +ZOLP10TA2 PO
== END ==
LOC: M PAIN 08:30
PROVIDERS: ATTEND Nurse Practitioner Family
DX: M47.812 Spondylosis without myelopathy or radiculopathy, cervical region (principal); M79.7 Fibromyalgia; K21.9 Gastro-esophageal reflux disease without esophagitis; E03.9 Hypothyroidism, unspecified; M19.90 Unspecified osteoarthritis, unspecified site; E66.9 Obesity, unspecified; E55.9 Vitamin D deficiency, unspecified; Z86.711 Personal history of pulmonary embolism; Z79.891 Long term (current) use of opiate analgesic; Z79.899 Other long term (current) drug therapy; Z88.1 Allergy status to other antibiotic agents; Z88.2 Allergy status to sulfonamides; Z88.8 Allergy status to other drugs, medicaments and biological substances

== ENCOUNTER → 2020-08-23 | Outpatient (CLI) | payer MEDICARE, MEDICAID ==
[~2020-08-23] MED LIST changes: +HYDR-3490; +HYDR-3490 PO; -HYDR25TAB; -HYDR25TAB PO
--- NOTE | 2020-09-01 23:13 | ECWPNPC ---
PATIENT NAME: DARLENE HICKEY : 1955 GENDER: FEMALE VISIT DATE: 08/23/2020 DISCHARGE DATE: 08/23/20 1203 VISIT LOCKED DATE TIME: PHYSICIAN: AMY SHAH PHYSICIAN PAGER NO: ACTIVE RESOURCE: AMY SHAH REASON FOR APPOINTMENT 1. MED MANAGEMENT HISTORY OF PRESENT ILLNESS GENERAL: -. FALL RISK SCREENING: SCREENING : NO FALLS REPORTED IN THE LAST YEAR. PAIN SCREENING: PATIENT HAS A COMPLAINT OF ACUTE OR CHRONIC PAIN :YES LOCATION OF PAIN:NECK INTENSITY OF PAIN (SCALE OF 1 TO 10):2 WHAT DOES YOUR PAIN FEEL LIKE:THROBBING DURATION:CONTINOUS, CONSTANT, ALL DAY PAIN IS INCREASED BY:ACTIVITIES PAIN IS DECREASED BY:USE OF PAIN MEDICATIONS NURSING NOTE: -. PAIN CENTER INTAKE QUESTIONS: DO YOU HAVE A HISTORY OF MRSA? :YES 12 YEARS AGO DO YOU TAKE A BLOOD THINNERS? :YES ELAQUIS DO YOU HAVE ANY BLEEDING DISORDERS? :NO ANY NEW NUMBNESS OR WEAKNESS IN YOUR LEGS OR ARMS? :YES IN RIGHT ARM ANY PACEMAKER,DEFIBRILLATOR, OR DORSAL COLUMN STIMULATOR? :NO DO YOU HAVE ANY RASHES OR OPEN SORES? :NO ARE YOU ALLERGIC TO IV DYE? :NO ARE YOU DIABETIC? :NO ANY NEW PROBLEMS WITH YOUR MEDICATIONS? :NO HAVE YOU RECEIVED A VACCINE IN THE PAST 30 DAYS? :NO DO YOU PLAN TO RECEIVE A VACCINE IN THE NEXT 21 DAYS? :NO DO YOU NEED ANY PRESCRIPTION? :NO DO YOU TAKE ANY IMMUNOSUPPRESSIVE MEDICATIONS? :NO IS THERE A CHANCE YOU COULD BE ? :NO ARE YOU BREAST FEEDING? :NO CURRENT MEDICATIONS TAKING AMBIEN 10 MG TABLET 1 TABLET AT BEDTIME NEEDED ORALLY ONCE A DAY TAKING DICLO GEL 1 % KIT DIRECTED TRANSDERMAL TAKING PROTONIX 40 MG TABLET DELAYED RELEASE 1 TABLET ORALLY ONCE A DAY TAKING NYSTATIN [id number] UNIT/GM POWDER 1 APPLICATION TO AFFECTED AREA EXTERNALLY TWICE A DAY TAKING CARAFATE 1 GM TABLET 1 TABLET ORALLY THREE X DAILY TAKING MULTIVITAMINS TABLET 1 TABLET ORALLY ONCE A DAY TAKING CYMBALTA 60 MG CAPSULE DELAYED RELEASE PARTICLES 1 CAPSULE ORALLY ONCE A DAY TAKING COLACE 100 MG CAPSULE 1 CAPSULE NEEDED ORALLY TWICE A DAY TAKING LEFLUNOMIDE 20 MG TABLET 1 TABLET ORALLY ONCE A DAY TAKING MIRTAZAPINE 7.5 MG TABLET 1 TABLET AT BEDTIME ORALLY ONCE A DAY TAKING VENTOLIN HFA 108 (90 BASE) MCG/ACT AEROSOL SOLUTION 2 PUFFS INHALATION QID PRN TAKING GABAPENTIN 600 MG TABLET 1 CAPSULE ORALLY TID TAKING VITAMIN D (ERGOCALCIFEROL) 1.25 MG (93684 UT) CAPSULE TAKE 1 CAPSULE BY MOUTH EVERY WEEK TAKING HYDROCHLOROTHIAZIDE 25 MG TABLET 1 TABLET IN THE MORNING ORALLY ONCE A DAY TAKING LEVOTHYROXINE SODIUM 25 MCG TABLET TAKE 1 TABLET BY MOUTH EVERY MORNING ON AN EMPTY STOMACH TAKING TRAZODONE HCL 100 MG TABLET 1-2 TABLET AT BEDTIME ORALLY ONCE A DAY TAKING TRAMADOL HCL 50 MG TABLET 1 TABLET NEEDED ORALLY Q6-8H PRN PAIN MDD2 TAKING OXYCODONE-ACETAMINOPHEN 10-325 MG TABLET 1 TABLET NEEDED ORALLY FOR PAIN Q4-6H PRN MDD5 TAKING ELIQUIS 5 MG TABLET DIRECTED ORALLY TWICE A DAY NOT-TAKING HYDROXYCHLOROQUINE SULFATE 200 MG TABLET 1 TABLET WITH FOOD OR MILK ORALLY ONCE A DAY FROM RA NOT-TAKING DERMOPLAST 20-0.5 % AEROSOL 1 APPLICATION TO AFFECTED AREA NEEDED EXTERNALLY THREE TIMES A DAY NOT-TAKING FOLIC ACID 1 MG TABLET 1 TABLET ORALLY ONCE A DAY NOT-TAKING SLOW-MAG 71.5-119 MG TABLET DELAYED RELEASE TAKE 3 TABLETS BY MOUTH ONCE DAILY. 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 POS COPD HISTORY OF PULMONARY EMBOLISM VERTIGO GASTRIC ULCER ANEURESYM BRAIN STEM RHEUMATOID ARTHRITIS PNEUMONIA ALLERGIES CIPRO: THROAT SWELLING - ALLERGY LYRICA: MEMORY LOSS - SIDE EFFECTS ROBAXIN: RASH - ALLERGY SULFASALAZINE: HIVES - ALLERGY SULFA (FOR ALLERGY USE ONLY): HIVES - SIDE EFFECTS SURGICAL HISTORY EYE OPERATION - LEFT "LAZY EYE" 1964 C - SECTION 1979 C- SECTION 1988 BREAST REDUCTION 1998 GASTRIC BYPASS 2005 GALLBALHEIDIER 2007 CYST REMOVAL (BENIGN) ARM AND BACK 2009 LEFT KNEE SURGERY 2009 RIGHT KNEE SURGERY 2010 HERNIA SURGERY 2010 APPENDECTOMY WITH COMPLICATIONS (COLOSTOMY BAG - REMOVED 10/07) 2010 REMOVED SEVERAL CYSTS FROM COLON AND BREASTS (ABSCESSES) 2010 HERNIAS REPAIRED X 2 09/2011 NECK FUSION C5-6-7-8 2010 UPPER ENDOSCOPY 10/2011 COLONOSCOPY 09/06 EPIDURAL 02/04/15 INCISIONAL HERNIA REPAIR 09/2016 [facility] 2018 CATARACTS FAMILY HISTORY FATHER: , DIAGNOSED WITH OTHER MALIGNANT NEOPLASM OF UNSPECIFIED SITE, DIABETES MOTHER: , DIABETES, OTHER SPECIFIED CONDITIONS INFLUENCING HEALTH STATUS 3 BROTHER(S) . 1 SON(S) , 2 DAUGHTER(S) - HEALTHY. DAUGHTER (HAYDE) WITH RA OR MS. SOCIAL HISTORY GENERAL: TOBACCO USE ARE YOU A:NONSMOKER NEVER A SMOKER LATEX QUESTIONNAIRE LATEX ALLERGY : HAVE YOU EVER DEVELOPED ANY TYPE OF REACTION AFTER HANDLING LATEX PRODUCTS SUCH RUBBER GLOVES, CONDOMS, DIAPHRAGMS, BALLOONS, SOCKS, OR UNDERWEAR?NO LATEX ALLERGY : HAVE YOU EVER DEVELOPED ANY TYPE OF REACTION DURING OR AFTER DENTAL APPOINTMENT, VAGINAL/RECTAL EXAMINATION, SURGICAL PROCEDURE, OR ANY OTHER EXPOSURE?NO LATEX RISK : HAVE YOU EVER HAD ANY DIFFICULTY BREATHING OR HIVES AFTER EATING OR HANDLING ANY FRUITS, OR VEGETABLES; SUCH KIWI, BANANAS, STONE FRUITS, OR CHESTNUTSNO LATEX RISK : DO YOU HAVE A PREVIOUS PERSONAL HISTORY OF MORE THAN NINE SURGERIES, SPINA BIFIDA, OR REPEATED CATHERIZATIONS? NO LATEX RISK : ARE YOU FREQUENTLY EXPOSED TO LATEX PRODUCTS IN YOUR OCCUPATION?NO DATE ASKED : 08/23/2020 ALCOHOL USE: NO. LUNG CANCER SCREENING SMOKING STATUS:NON SMOKER ALCOHOL SCREENING DID YOU HAVE A DRINK CONTAINING ALCOHOL IN THE PAST YEAR?NO POINTS0 INTERPRETATIONNEGATIVE RECREATIONAL DRUG USE DRUG USE?NO CAFFEINE CAFFEINE USE?YES HOW OFTEN AND HOW MUCH? DAILY SEXUAL HX HAD SEX IN THE LAST 12 MONTHS (VAGINAL, ORAL, OR ANAL)?NO HAVE YOU EVER HAD AN STD?NO HIV / HEP-C SCREENING HIV TEST OFFERED TO PATIENT:YES DATE OFFERED:03/28/2019 TEST ACCEPTED:NO HEP-C TEST OFFERED TO PATIENT:YES DATE OFFERED:03/28/2019 REASON:PATIENT DECLINED TEST ACCEPTED:NO REASON:PATIENT DECLINED BROCHURE PROVIDED TO PATIENTNO CHRISTIAN CHRISTIAN NO JAINISM BELIEFS THAT WOULD IMPACT HEALTH CARE. LANGUAGE LANGUAGES SPOKEN:BRUNEIAN LEARNING BARRIERS / SPECIAL NEEDS CHANGE FROM LAST VISIT?NO BARRIERS TO LEARNING?NO HEARING IMPAIRED?NO VISION IMPAIRED?YES :CORRECTIVE LENSES COGNITIVELY IMPAIRED?NO READINESS TO LEARN?YES LEARNING PREFERENCES?NO LEARNING CAPABILITIES PRESENT?YES EMOTIONAL BARRIERS?NO SPECIAL DEVICES?NO COMMUNITY RELATIONS ADVISOR NEEDED?NO DOMESTIC VIOLENCE DO YOU FEEL SAFE IN YOUR ENVIRONMENT?YES - PFS REFERRAL NEEDED?NO CLERGY REFERRAL NEEDED?NO PUBLIC HEALTH REFERRAL NEEDED?NO WAS THE PROVIDER NOTIFIED OF ANY PERTINENT INFO?NO HAS THE PATIENT BEEN EDUCATED REGARDING HIS/HER PLAN OF CARE?YES HAS THE PATIENT BEEN EDUCATED REGARDING PAIN, THE RISK FOR PAIN, THE IMPORTANCE OF EFFECTIVE PAIN MANAGEMENT, AND THE PAIN ASSESSMENT PROCESS?YES ADVANCE DIRECTIVE ADVANCE DIRECTIVE DISCUSSED WITH PATIENT:YES HCP - REMBERTO LOMAX (GRAND-DAUGHTER) HOSPITALIZATION/MAJOR DIAGNOSTIC PROCEDURE COPD FLARE UP X2 05/11 SURGERY SURGERY 10/12 PNEUMONIA/BRONCHITIS CHEST PAIN ([facility]) SEPTEMBER 2017 PNEUMONIA APRIL 2018 DOUBLE PNEUMONIA MAY 2018 PNEUMONIA & KIDNEY INFECTION 06/2019 ER VISIT [facility] - LEG PAIN 12/22/19 LEG SURGERY A MONTH AGO 03/23/2020 VITAL SIGNS WT 181.4 LBS, HT 62.5 IN, BMI 32.65 INDEX, BP 161/70 MM HG, HR 94 /MIN, RR 18 /MIN, TEMP 97.5 F, OXYGEN SAT % 95%, SAFE IN ENV? (Y/N) YES, NA INITIALS AW 1120T.TIM ARAUJO. ASSESSMENTS CHRONIC PRESCRIPTION OPIATE USE - Z79.891 (PRIMARY) MYALGIA OF MUSCLE OF NECK - M79.18 TREATMENT CHRONIC PRESCRIPTION OPIATE USE CONTINUE GABAPENTIN TABLET, 600 MG, 1 CAPSULE, ORALLY, TID CONTINUE TRAMADOL HCL TABLET, 50 MG, 1 TABLET NEEDED, ORALLY, Q6-8H PRN PAIN MDD2 CONTINUE OXYCODONE-ACETAMINOPHEN TABLET, 10-325 MG, 1 TABLET NEEDED, ORALLY FOR PAIN, Q4-6H PRN MDD5 LAB: URINE TEST GROUP 6-ACETYLMORPHINE SCREEN NEGATIVE (10 - NG/ML) BENZODIAZEPINES SCREEN NEGATIVE (200 - NG/ML) AMPHETAMINE SCREEN NEGATIVE (1000 - NG/ML) BARBITURATES SCREEN NEGATIVE (200 - NG/ML) BUPRENORPHINE SCREEN NEGATIVE (5 - NG/ML) COCAINE SCREEN NEGATIVE (300 - NG/ML) CARISOPRODOL SCREEN NEGATIVE (100 - NG/ML) FENTANYL SCREEN NEGATIVE (2 - NG/ML) GABAPENTIN SCREEN POSITIVE (1000 - NG/ML) METHADONE SCREEN NEGATIVE (300 - NG/ML) OPIATES SCREEN NEGATIVE (300 - NG/ML) OXYCODONE SCREEN POSITIVE (100 - NG/ML) PHENCYCLIDINE SCREEN NEGATIVE (25 - NG/ML) CREATININE 150.8 (>= 20 MG/DL - MG/DL) PH 5.6 (4.5 - 8.9 - ) CREATININE/SPECIFIC GRAVITY NORMAL (>= 20 MG/DL - ) PH NORMAL (4.5 - 8.9 - ) TCA ANTIDEPRESSANTS SCREEN NEGATIVE (150 - NG/ML) CANNABINOIDS SCREEN NEGATIVE (20 - NG/ML) MDMA SCREEN NEGATIVE (500 - NG/ML) TRAMADOL SCREEN POSITIVE (100 - NG/ML) TAE DUMONTKAREN 08/23/2020 11:45:57 AM > LAST DOSE: AMBIEN-08/23/20,TRAMADOL-08/22/20,OXYCODONE-08/23/20 NOTES: ISTOP REGISTRY REVIEWED AND DEMONSTRATES COMPLLIANCE. BRINGS IN MEDICATIONS WHICH IS APPROPRIATE FOR WHAT WAS DISPENSED. RECENT URINE TOXICOLOGY REVIEWED. NO UNAUTHORIZED MEDICATIONS. NO ILLICIT SUBSTANCES AND PRESCRIBED MEDICATIONS WERE PRESENT. LABS LAB: ILYA/PREGAB REFLEX, UR GABAPENTIN >[id number] (500 - NG/ML) PREGABALIN NEGATIVE (500 - NG/ML) [employer], SUPPORT 08/31/2020 10:05:02 : THIS ORDER WAS CREATED BY THE INTERFACE. LAB: OXYCODONE REFLEX SHS, UR OXYCODONE 2626 (25 - NG/ML) OXYMORPHONE 2018 (25 - NG/ML) NOROXYCODONE 4769 (50 - NG/ML) [employer], SUPPORT 08/31/2020 10:05:03 : THIS ORDER WAS CREATED BY THE INTERFACE. LAB: TRAMADOL REFLEX SHS, UR TRAMADOL >1000 (100 - NG/ML) [employer], SUPPORT 08/31/2020 10:05:03 : THIS ORDER WAS CREATED BY THE INTERFACE. PROCEDURE CODES FA211 ESTABILISHED PATIENT [facility] CHARGE DISPOSITION & COMMUNICATION FOLLOW UP 2 MONTHS (REASON: MED MGMNT REVIEW UTOX) ELECTRONICALLY SIGNED BY CHETAN HOWELL ON 09/01/2020 AT 07:31 AM EST DISCLAIMER : THIS IS A VISIT SUMMARY EXTRACTED FROM THE [employer] CHART. IT IS NOT A COPY OF THE [employer] PROGRESS NOTE. YURIY
== END ==
LOC: M PAIN 11:15
PROVIDERS: ATTEND Nurse Practitioner Family
DX: M79.18 Myalgia, other site (principal); K21.9 Gastro-esophageal reflux disease without esophagitis; E03.9 Hypothyroidism, unspecified; G47.00 Insomnia, unspecified; E55.9 Vitamin D deficiency, unspecified; J44.9 Chronic obstructive pulmonary disease, unspecified; Z86.14 Personal history of Methicillin resistant Staphylococcus aureus infection; Z86.711 Personal history of pulmonary embolism; Z98.84 Bariatric surgery status; Z88.1 Allergy status to other antibiotic agents; Z88.2 Allergy status to sulfonamides; Z88.8 Allergy status to other drugs, medicaments and biological substances; Z79.01 Long term (current) use of anticoagulants; Z79.899 Other long term (current) drug therapy

== ENCOUNTER → 2020-11-29 | Outpatient (CLI) | payer MEDICARE, MEDICAID ==
[~2020-11-29] MED LIST changes: +GABA-283 PO; -GABA-845 PO; -NABU-53 PO; +NABU-73 PO
--- NOTE | 2020-12-02 23:54 | ECWPNPC ---
PATIENT NAME: DARLENE HICKEY : 1955 GENDER: FEMALE VISIT DATE: 11/29/2020 DISCHARGE DATE: 11/29/20 1134 VISIT LOCKED DATE TIME: PHYSICIAN: AMY SHAH PHYSICIAN PAGER NO: ACTIVE RESOURCE: AMY SHAH REASON FOR APPOINTMENT 1. MED MANAGEMENT HISTORY OF PRESENT ILLNESS GENERAL: HERE FOR F/U OF CHRONIC NECK PAIN/LEFT SIDED.PAIN HAS INCREASED LATELY.DENIES PRECIPITATING EVENT.IS SCHEDULED FOR LEFT LEG VASCULAR SURGERY IN 2 WEEKS.ON CHRONIC PLAVIX THERAPY S/P LEFT LEG DVT W STENTING.REVIEWED MRI C SPINE AND DISCUSSED TREATMENT OPTIONS.WE WILL CONSIDER DOING THERAPEUTIC CERVICAL BLOCK OR TPI.SHE WILL HAVE TO BE 4-6 WEEKS POST VASCULAR SURGEY TO CONSIDER INJECTIONS. -. FALL RISK SCREENING: SCREENING : NO FALLS REPORTED IN THE LAST YEAR. PAIN SCREENING: PATIENT HAS A COMPLAINT OF ACUTE OR CHRONIC PAIN :YES LOCATION OF PAIN:NECK LEFT SIDE INTENSITY OF PAIN (SCALE OF 1 TO 10):4 WHAT DOES YOUR PAIN FEEL LIKE:BURNING, TENDER, SHOOTING DURATION:CONTINOUS, CONSTANT, ALL DAY PAIN IS INCREASED BY:ACTIVITIES PAIN IS DECREASED BY:USE OF PAIN MEDICATIONS NURSING NOTE: -. PAIN CENTER INTAKE QUESTIONS: DO YOU HAVE A HISTORY OF MRSA? :YES 12 YEARS AGO DO YOU TAKE A BLOOD THINNERS? :YES ELAQUIS DO YOU HAVE ANY BLEEDING DISORDERS? :NO ANY NEW NUMBNESS OR WEAKNESS IN YOUR LEGS OR ARMS? :YES IN BOTH ARM ANY PACEMAKER,DEFIBRILLATOR, OR DORSAL COLUMN STIMULATOR? :NO DO YOU HAVE ANY RASHES OR OPEN SORES? :NO ARE YOU ALLERGIC TO IV DYE? :NO ARE YOU DIABETIC? :NO ANY NEW PROBLEMS WITH YOUR MEDICATIONS? :NO HAVE YOU RECEIVED A VACCINE IN THE PAST 30 DAYS? :NO DO YOU PLAN TO RECEIVE A VACCINE IN THE NEXT 21 DAYS? :NO DO YOU NEED ANY PRESCRIPTION? :YES TRAMADOL HCL 50 MG DO YOU TAKE ANY IMMUNOSUPPRESSIVE MEDICATIONS? :NO IS THERE A CHANCE YOU COULD BE ? :NO ARE YOU BREAST FEEDING? :NO CURRENT MEDICATIONS TAKING AMBIEN 10 MG TABLET 1 TABLET AT BEDTIME NEEDED ORALLY ONCE A DAY TAKING DICLO GEL 1 % KIT DIRECTED TRANSDERMAL TAKING PROTONIX 40 MG TABLET DELAYED RELEASE 1 TABLET ORALLY ONCE A DAY TAKING NYSTATIN [id number] UNIT/GM POWDER 1 APPLICATION TO AFFECTED AREA EXTERNALLY TWICE A DAY TAKING CARAFATE 1 GM TABLET 1 TABLET ORALLY THREE X DAILY TAKING MULTIVITAMINS TABLET 1 TABLET ORALLY ONCE A DAY TAKING CYMBALTA 60 MG CAPSULE DELAYED RELEASE PARTICLES 1 CAPSULE ORALLY ONCE A DAY TAKING COLACE 100 MG CAPSULE 1 CAPSULE NEEDED ORALLY TWICE A DAY TAKING LEFLUNOMIDE 20 MG TABLET 1 TABLET ORALLY ONCE A DAY TAKING MIRTAZAPINE 7.5 MG TABLET 1 TABLET AT BEDTIME ORALLY ONCE A DAY TAKING VENTOLIN HFA 108 (90 BASE) MCG/ACT AEROSOL SOLUTION 2 PUFFS INHALATION QID PRN TAKING VITAMIN D (ERGOCALCIFEROL) 1.25 MG (20449 UT) CAPSULE TAKE 1 CAPSULE BY MOUTH EVERY WEEK TAKING HYDROCHLOROTHIAZIDE 25 MG TABLET 1 TABLET IN THE MORNING ORALLY ONCE A DAY TAKING LEVOTHYROXINE SODIUM 25 MCG TABLET TAKE 1 TABLET BY MOUTH EVERY MORNING ON AN EMPTY STOMACH TAKING ELIQUIS 5 MG TABLET DIRECTED ORALLY TWICE A DAY TAKING TRAMADOL HCL 50 MG TABLET 1 TABLET NEEDED ORALLY Q6-8H PRN PAIN MDD2 TAKING TRAZODONE HCL 100 MG TABLET 1-2 TABLET AT BEDTIME ORALLY ONCE A DAY TAKING GABAPENTIN 600 MG TABLET 1 CAPSULE ORALLY TID TAKING OXYCODONE-ACETAMINOPHEN 10-325 MG TABLET 1 TABLET NEEDED ORALLY FOR PAIN Q4-6H PRN MDD5 NOT-TAKING HYDROXYCHLOROQUINE SULFATE 200 MG TABLET 1 TABLET WITH FOOD OR MILK ORALLY ONCE A DAY FROM RA NOT-TAKING DERMOPLAST 20-0.5 % AEROSOL 1 APPLICATION TO AFFECTED AREA NEEDED EXTERNALLY THREE TIMES A DAY NOT-TAKING FOLIC ACID 1 MG TABLET 1 TABLET ORALLY ONCE A DAY NOT-TAKING SLOW-MAG 71.5-119 MG TABLET DELAYED RELEASE TAKE 3 TABLETS BY MOUTH ONCE DAILY. 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 POS COPD HISTORY OF PULMONARY EMBOLISM VERTIGO GASTRIC ULCER ANEURESYM BRAIN STEM RHEUMATOID ARTHRITIS PNEUMONIA ALLERGIES CIPRO: THROAT SWELLING - ALLERGY LYRICA: MEMORY LOSS - SIDE EFFECTS ROBAXIN: RASH - ALLERGY SULFASALAZINE: HIVES - ALLERGY SULFA (FOR ALLERGY USE ONLY): HIVES - SIDE EFFECTS SURGICAL HISTORY EYE OPERATION - LEFT "LAZY EYE" 1964 C - SECTION 1979 C- SECTION 1988 BREAST REDUCTION 1999 GASTRIC BYPASS 2005 GALLBALDDER 2008 CYST REMOVAL (BENIGN) ARM AND BACK 2009 LEFT KNEE SURGERY 2009 RIGHT KNEE SURGERY 2010 HERNIA SURGERY 2010 APPENDECTOMY WITH COMPLICATIONS (COLOSTOMY BAG - REMOVED 10/07) 2010 REMOVED SEVERAL CYSTS FROM COLON AND BREASTS (ABSCESSES) 2010 HERNIAS REPAIRED X 2 09/2011 NECK FUSION C5-6-7-8 2010 UPPER ENDOSCOPY 10/2011 COLONOSCOPY 09/06 EPIDURAL 02/04/15 INCISIONAL HERNIA REPAIR 09/2016 CHANDU BLOCK AT [facility] 2018 CATARACTS BLADDLER SLING SURG 11/06/2020 FAMILY HISTORY FATHER: , DIAGNOSED WITH DIABETES, OTHER MALIGNANT NEOPLASM OF UNSPECIFIED SITE MOTHER: , DIABETES, OTHER SPECIFIED CONDITIONS INFLUENCING HEALTH STATUS 3 BROTHER(S) . 1 SON(S) , 2 DAUGHTER(S) - HEALTHY. DAUGHTER (HAYDE) WITH RA OR MS. SOCIAL HISTORY GENERAL: TOBACCO USE ARE YOU A:NONSMOKER NEVER A SMOKER LATEX QUESTIONNAIRE LATEX ALLERGY : HAVE YOU EVER DEVELOPED ANY TYPE OF REACTION AFTER HANDLING LATEX PRODUCTS SUCH RUBBER GLOVES, CONDOMS, DIAPHRAGMS, BALLOONS, SOCKS, OR UNDERWEAR?NO LATEX ALLERGY : HAVE YOU EVER DEVELOPED ANY TYPE OF REACTION DURING OR AFTER DENTAL APPOINTMENT, VAGINAL/RECTAL EXAMINATION, SURGICAL PROCEDURE, OR ANY OTHER EXPOSURE?NO LATEX RISK : HAVE YOU EVER HAD ANY DIFFICULTY BREATHING OR HIVES AFTER EATING OR HANDLING ANY FRUITS, OR VEGETABLES; SUCH KIWI, BANANAS, STONE FRUITS, OR CHESTNUTSNO LATEX RISK : DO YOU HAVE A PREVIOUS PERSONAL HISTORY OF MORE THAN NINE SURGERIES, SPINA BIFIDA, OR REPEATED CATHERIZATIONS? NO LATEX RISK : ARE YOU FREQUENTLY EXPOSED TO LATEX PRODUCTS IN YOUR OCCUPATION?NO DATE ASKED : 11/29/2020 ALCOHOL USE: NO. LUNG CANCER SCREENING SMOKING STATUS:NON SMOKER ALCOHOL SCREENING DID YOU HAVE A DRINK CONTAINING ALCOHOL IN THE PAST YEAR?NO POINTS0 INTERPRETATIONNEGATIVE RECREATIONAL DRUG USE DRUG USE?NO CAFFEINE CAFFEINE USE?YES HOW OFTEN AND HOW MUCH? DAILY SEXUAL HX HAD SEX IN THE LAST 12 MONTHS (VAGINAL, ORAL, OR ANAL)?NO HAVE YOU EVER HAD AN STD?NO HIV / HEP-C SCREENING HIV TEST OFFERED TO PATIENT:YES DATE OFFERED:03/28/2019 TEST ACCEPTED:NO HEP-C TEST OFFERED TO PATIENT:YES DATE OFFERED:03/28/2019 REASON:PATIENT DECLINED TEST ACCEPTED:NO REASON:PATIENT DECLINED BROCHURE PROVIDED TO PATIENTNO SIKHISM SIKHISM NO ORTHODOXY BELIEFS THAT WOULD IMPACT HEALTH CARE. LANGUAGE LANGUAGES SPOKEN:PUERTO RICAN LEARNING BARRIERS / SPECIAL NEEDS CHANGE FROM LAST VISIT?NO BARRIERS TO LEARNING?NO HEARING IMPAIRED?NO VISION IMPAIRED?YES :CORRECTIVE LENSES COGNITIVELY IMPAIRED?NO READINESS TO LEARN?YES LEARNING PREFERENCES?NO LEARNING CAPABILITIES PRESENT?YES EMOTIONAL BARRIERS?NO SPECIAL DEVICES?YES :CANE NEEDED DUMP GRADER NEEDED?NO DOMESTIC VIOLENCE DO YOU FEEL SAFE IN YOUR ENVIRONMENT?YES - PFS REFERRAL NEEDED?NO CLERGY REFERRAL NEEDED?NO PUBLIC HEALTH REFERRAL NEEDED?NO WAS THE PROVIDER NOTIFIED OF ANY PERTINENT INFO?NO HAS THE PATIENT BEEN EDUCATED REGARDING HIS/HER PLAN OF CARE?YES HAS THE PATIENT BEEN EDUCATED REGARDING PAIN, THE RISK FOR PAIN, THE IMPORTANCE OF EFFECTIVE PAIN MANAGEMENT, AND THE PAIN ASSESSMENT PROCESS?YES ADVANCE DIRECTIVE ADVANCE DIRECTIVE DISCUSSED WITH PATIENT:YES HCP - REMBERTO LOMAX (GRAND-DAUGHTER) HOSPITALIZATION/MAJOR DIAGNOSTIC PROCEDURE COPD FLARE UP X2 05/11 SURGERY SURGERY 10/12 PNEUMONIA/BRONCHITIS CHEST PAIN ([facility] [place]) SEPTEMBER 2017 PNEUMONIA APRIL 2018 DOUBLE PNEUMONIA MAY 2018 PNEUMONIA & KIDNEY INFECTION 06/2019 ER VISIT [facility] - LEG PAIN 12/22/19 LEG SURGERY A MONTH AGO 03/23/2020 REVIEW OF SYSTEMS CONSTITUTIONAL: ANY RECENT FEVER NO . CHILLS NO . WEIGHT CHANGE OF UNKNOWN REASONS NO . GASTROENTEROLOGY: NEW UNEXPLAINABLE CHANGES IN BOWEL CONTROL NO . CONSTIPATION NO . GENITOURINARY: ANY NEW CHANGE IN BLADDER CONTROL? NO . NEUROLOGY: NEW ONSET DIZZINESS OR NEUROLOGICAL CHANGES NOT MENTIONED NO . NEW NUMBNESS OR PAIN PATTERNS NOT MENTIONED AND PERTINENT TO TODAY'S VISIT NO . CARDIOLOGY: NEW CHEST PRESSURE NO . PATIENT DENIES NO . RESPIRATORY: UNEXPLAINABLE COUGH NO . NEW SHORTNESS OF BREATH NO . VITAL SIGNS WT 183.0 LBS, HT 62.5 IN, BMI 32.93 INDEX, BP 140/67 MM HG, HR 85 /MIN, RR 18 /MIN, TEMP 97.6 F, OXYGEN SAT % 92%, SAFE IN ENV? (Y/N) YES, NA INITIALS AW 1111T.TIM ARAUJO. EXAMINATION GENERAL EXAMINATION: GENERALWELL DEVELOPED AND WELL NOURISHED, WELL GROOMED. PSYCHAPPROPRIATE MOOD AND AFFECT , NORMAL SPEECH, GOOD EYE CONTACT. CHEST:NORMAL, SYMMETRICAL. LUNGS:CLEAR TO AUSCULTATION, NO WHEEZES, NO RHONCHI. HEART:NORMAL SINUS RHYTHM. ASSESSMENTS SPONDYLOSIS OF CERVICAL REGION WITHOUT MYELOPATHY OR RADICULOPATHY - M47.812 (PRIMARY) CHRONIC PRESCRIPTION OPIATE USE - Z79.891 TREATMENT SPONDYLOSIS OF CERVICAL REGION WITHOUT MYELOPATHY OR RADICULOPATHY REFILL TRAMADOL HCL TABLET, 50 MG, 1 TABLET NEEDED, ORALLY, Q6-8H PRN PAIN MDD2, 30 DAYS, 60, REFILLS 2 REFILL GABAPENTIN TABLET, 600 MG, 1 CAPSULE, ORALLY, TID, 30 DAYS, 90 CAPSULE, REFILLS 2 REFILL OXYCODONE-ACETAMINOPHEN TABLET, 10-325 MG, 1 TABLET NEEDED, ORALLY FOR PAIN, Q4-6H PRN MDD5, 30 DAYS, 150 NOTES: ISTOP REGISTRY REVIEWED AND DEMONSTRATES COMPLLIANCE. BRINGS IN MEDICATIONS WHICH IS APPROPRIATE FOR WHAT WAS DISPENSED. RECENT URINE TOXICOLOGY REVIEWED. NO UNAUTHORIZED MEDICATIONS. NO ILLICIT SUBSTANCES AND PRESCRIBED MEDICATIONS WERE PRESENT. PROCEDURE CODES FA211 ESTABILISHED PATIENT [facility] CHARGE DISPOSITION & COMMUNICATION FOLLOW UP 2 MONTHS (REASON: MED MGMNT/UTOX) ELECTRONICALLY SIGNED BY CHETAN HOWELL ON 12/02/2020 AT 01:38 PM EDT DISCLAIMER : THIS IS A VISIT SUMMARY EXTRACTED FROM THE [employer] CHART. IT IS NOT A COPY OF THE [employer] PROGRESS NOTE. YURIY
== END ==
LOC: M PAIN 10:45
PROVIDERS: ATTEND Nurse Practitioner Family
DX: M47.812 Spondylosis without myelopathy or radiculopathy, cervical region (principal); G89.29 Other chronic pain; M79.7 Fibromyalgia; K21.9 Gastro-esophageal reflux disease without esophagitis; E03.9 Hypothyroidism, unspecified; G47.00 Insomnia, unspecified; E55.9 Vitamin D deficiency, unspecified; G47.30 Sleep apnea, unspecified; J44.9 Chronic obstructive pulmonary disease, unspecified; Z86.14 Personal history of Methicillin resistant Staphylococcus aureus infection; Z98.84 Bariatric surgery status; Z88.1 Allergy status to other antibiotic agents; Z88.2 Allergy status to sulfonamides; Z88.8 Allergy status to other drugs, medicaments and biological substances; Z79.01 Long term (current) use of anticoagulants; Z79.899 Other long term (current) drug therapy

== ENCOUNTER → 2021-01-29 | Outpatient (CLI) | payer MEDICARE, MEDICAID ==
[~2021-01-29] MED LIST changes: +ERGO500029; +ERGO500029 PO; -VITA50005; -VITA50005 PO
--- NOTE | 2021-01-31 03:39 | ECWPNPC ---
PATIENT NAME: DARLENE HCIKEY : 1955 GENDER: FEMALE VISIT DATE: 01/29/2021 DISCHARGE DATE: 01/29/21 1430 VISIT LOCKED DATE TIME: PHYSICIAN: AMY SHAH PHYSICIAN PAGER NO: INACTIVE RESOURCE: AMY SHAH REASON FOR APPOINTMENT 1. MED MGMNT/UTOX HISTORY OF PRESENT ILLNESS DEPRESSION SCREENING: PHQ-2 (2015 EDITION) LITTLE INTEREST OR PLEASURE IN DOING THINGS?NOT AT ALL FEELING DOWN, DEPRESSED, OR HOPELESS?NOT AT ALL TOTAL SCORE0 GENERAL: HERE FOR FOLLOW-UP OF PERSISTENT NECK PAIN. FINDS CURRENT CHRONIC PAIN MEDICATION SOMEWHAT HELPFUL AT REDUCING PAIN AND KEEPING HER FUNCTIONAL. DENIES ADVERSE SIDE EFFECTS WITH MEDICATION. BRINGS IN HER MEDICATION WHICH IS APPROPRIATE FOR WHAT WAS DISPENSED. -. FALL RISK SCREENING: SCREENING : NO FALLS REPORTED IN THE LAST YEAR. PAIN SCREENING: PATIENT HAS A COMPLAINT OF ACUTE OR CHRONIC PAIN :YES LOCATION OF PAIN:NECK INTENSITY OF PAIN (SCALE OF 1 TO 10):7 WHAT DOES YOUR PAIN FEEL LIKE:CONTINOUS, THROBBING, SHOOTING DURATION:CONTINOUS, CONSTANT, ALL DAY PAIN IS INCREASED BY:OTHERS SLEEPING PAIN IS DECREASED BY:USE OF PAIN MEDICATIONS NURSING NOTE: -. PAIN CENTER INTAKE QUESTIONS: DO YOU HAVE A HISTORY OF MRSA? :YES 12 YEARS AGO DO YOU TAKE A BLOOD THINNERS? :YES ELAQUIS DO YOU HAVE ANY BLEEDING DISORDERS? :NO ANY NEW NUMBNESS OR WEAKNESS IN YOUR LEGS OR ARMS? :YES IN BOTH ARM ANY PACEMAKER,DEFIBRILLATOR, OR DORSAL COLUMN STIMULATOR? :NO DO YOU HAVE ANY RASHES OR OPEN SORES? :NO ARE YOU ALLERGIC TO IV DYE? :NO ARE YOU DIABETIC? :NO ANY NEW PROBLEMS WITH YOUR MEDICATIONS? :YES GABAPENTIN AND OXYCODONE IS NOT LASTING LONG HAVE YOU RECEIVED A VACCINE IN THE PAST 30 DAYS? :NO DO YOU PLAN TO RECEIVE A VACCINE IN THE NEXT 21 DAYS? :NO DO YOU NEED ANY PRESCRIPTION? :YES TRAMADOL HCL 50 MG DO YOU TAKE ANY IMMUNOSUPPRESSIVE MEDICATIONS? :NO IS THERE A CHANCE YOU COULD BE ? :NO ARE YOU BREAST FEEDING? :NO CURRENT MEDICATIONS TAKING AMBIEN 10 MG TABLET 1 TABLET AT BEDTIME NEEDED ORALLY ONCE A DAY TAKING NYSTATIN [id number] UNIT/GM POWDER 1 APPLICATION TO AFFECTED AREA EXTERNALLY TWICE A DAY TAKING CARAFATE 1 GM TABLET 1 TABLET ORALLY THREE X DAILY TAKING MULTIVITAMINS TABLET 1 TABLET ORALLY ONCE A DAY TAKING COLACE 100 MG CAPSULE 1 CAPSULE NEEDED ORALLY TWICE A DAY TAKING LEFLUNOMIDE 20 MG TABLET 1 TABLET ORALLY ONCE A DAY TAKING MIRTAZAPINE 7.5 MG TABLET 1 TABLET AT BEDTIME ORALLY ONCE A DAY TAKING VENTOLIN HFA 108 (90 BASE) MCG/ACT AEROSOL SOLUTION 2 PUFFS INHALATION QID PRN TAKING VITAMIN D (ERGOCALCIFEROL) 1.25 MG ([id number] UT) CAPSULE TAKE 1 CAPSULE BY MOUTH EVERY WEEK TAKING HYDROCHLOROTHIAZIDE 25 MG TABLET 1 TABLET IN THE MORNING ORALLY ONCE A DAY TAKING LEVOTHYROXINE SODIUM 25 MCG TABLET TAKE 1 TABLET BY MOUTH EVERY MORNING ON AN EMPTY STOMACH TAKING ELIQUIS 5 MG TABLET DIRECTED ORALLY TWICE A DAY TAKING TRAMADOL HCL 50 MG TABLET 1 TABLET NEEDED ORALLY Q6-8H PRN PAIN MDD2 TAKING GABAPENTIN 600 MG TABLET 1 CAPSULE ORALLY TID TAKING PROTONIX 40 MG TABLET DELAYED RELEASE 1 TABLET ORALLY ONCE A DAY TAKING DICLOFENAC SODIUM 1 % GEL APPLY 1 APPLICATION TOPICALLY 3 TIMES DAILY EXTERNAL TAKING OXYCODONE-ACETAMINOPHEN 10-325 MG TABLET 1 TABLET NEEDED ORALLY FOR PAIN Q4-6H PRN MDD5 TAKING CYMBALTA 60 MG CAPSULE DELAYED RELEASE PARTICLES 1 CAPSULE ORALLY ONCE A DAY TAKING TRAZODONE HCL 100 MG TABLET 1-2 TABLET AT BEDTIME ORALLY ONCE A DAY NOT-TAKING HYDROXYCHLOROQUINE SULFATE 200 MG TABLET 1 TABLET WITH FOOD OR MILK ORALLY ONCE A DAY FROM RA NOT-TAKING DERMOPLAST 20-0.5 % AEROSOL 1 APPLICATION TO AFFECTED AREA NEEDED EXTERNALLY THREE TIMES A DAY NOT-TAKING FOLIC ACID 1 MG TABLET 1 TABLET ORALLY ONCE A DAY NOT-TAKING SLOW-MAG 71.5-119 MG TABLET DELAYED RELEASE TAKE 3 TABLETS BY MOUTH ONCE DAILY. ORALLY DAILY NOT-TAKING CYCLOBENZAPRINE HCL 10 MG TABLET 1 TABLET AT BEDTIME NEEDED ORALLY THREE TIMES DAILY NEEDED MEDICATION LIST REVIEWED AND RECONCILED WITH THE PATIENT SURGICAL HISTORY EYE OPERATION - LEFT "LAZY EYE" 1964 C - SECTION 1979 C- SECTION 1988 BREAST REDUCTION 1998 GASTRIC BYPASS 2005 GALLBALDDER 2007 CYST REMOVAL (BENIGN) ARM AND BACK 2009 LEFT KNEE SURGERY 2009 RIGHT KNEE SURGERY 2010 HERNIA SURGERY 2009 APPENDECTOMY WITH COMPLICATIONS (COLOSTOMY BAG - REMOVED 10/07) 2010 REMOVED SEVERAL CYSTS FROM COLON AND BREASTS (ABSCESSES) 2010 HERNIAS REPAIRED X 2 09/2011 NECK FUSION C5-6-7-8 2010 UPPER ENDOSCOPY 10/2011 COLONOSCOPY 09/06 EPIDURAL 02/04/15 INCISIONAL HERNIA REPAIR 09/2016 [facility] 2018 CATARACTS BLADDLER SLING SURG 11/06/2020 LEFT LEG VASCULAR SURGERY SOCIAL HISTORY GENERAL: TOBACCO USE ARE YOU A:NONSMOKER NEVER A SMOKER LATEX QUESTIONNAIRE LATEX ALLERGY : HAVE YOU EVER DEVELOPED ANY TYPE OF REACTION AFTER HANDLING LATEX PRODUCTS SUCH RUBBER GLOVES, CONDOMS, DIAPHRAGMS, BALLOONS, SOCKS, OR UNDERWEAR?NO LATEX ALLERGY : HAVE YOU EVER DEVELOPED ANY TYPE OF REACTION DURING OR AFTER DENTAL APPOINTMENT, VAGINAL/RECTAL EXAMINATION, SURGICAL PROCEDURE, OR ANY OTHER EXPOSURE?NO LATEX RISK : HAVE YOU EVER HAD ANY DIFFICULTY BREATHING OR HIVES AFTER EATING OR HANDLING ANY FRUITS, OR VEGETABLES; SUCH KIWI, BANANAS, STONE FRUITS, OR CHESTNUTSNO LATEX RISK : DO YOU HAVE A PREVIOUS PERSONAL HISTORY OF MORE THAN NINE SURGERIES, SPINA BIFIDA, OR REPEATED CATHERIZATIONS? NO LATEX RISK : ARE YOU FREQUENTLY EXPOSED TO LATEX PRODUCTS IN YOUR OCCUPATION?NO DATE ASKED : 01/29/2021 ALCOHOL USE: NO. LUNG CANCER SCREENING SMOKING STATUS:NON SMOKER ALCOHOL SCREENING DID YOU HAVE A DRINK CONTAINING ALCOHOL IN THE PAST YEAR?NO POINTS0 INTERPRETATIONNEGATIVE RECREATIONAL DRUG USE DRUG USE?NO CAFFEINE CAFFEINE USE?YES HOW OFTEN AND HOW MUCH? 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 NEEDED?NO DOMESTIC VIOLENCE DO YOU FEEL SAFE IN YOUR ENVIRONMENT?YES - PFS REFERRAL NEEDED?NO CLERGY REFERRAL NEEDED?NO PUBLIC HEALTH REFERRAL NEEDED?NO WAS THE PROVIDER NOTIFIED OF ANY PERTINENT INFO?NO HAS THE PATIENT BEEN EDUCATED REGARDING HIS/HER PLAN OF CARE?YES HAS THE PATIENT BEEN EDUCATED REGARDING PAIN, THE RISK FOR PAIN, THE IMPORTANCE OF EFFECTIVE PAIN MANAGEMENT, AND THE PAIN ASSESSMENT PROCESS?YES ADVANCE DIRECTIVE ADVANCE DIRECTIVE DISCUSSED WITH PATIENT:YES HCP - REMBERTO LOMAX (GRAND-DAUGHTER) HOSPITALIZATION/MAJOR DIAGNOSTIC PROCEDURE COPD FLARE UP X2 05/11 SURGERY SURGERY 10/12 PNEUMONIA/BRONCHITIS -[facility] 2017 PNEUMONIA APRIL 2018 DOUBLE PNEUMONIA MAY 2018 PNEUMONIA & KIDNEY INFECTION 06/[address] [facility] - LEG PAIN 12/22/19 LEG SURGERY A MONTH AGO 03/23/2020 REVIEW OF SYSTEMS CONSTITUTIONAL: ANY RECENT FEVER NO . CHILLS NO . WEIGHT CHANGE OF UNKNOWN REASONS NO . GASTROENTEROLOGY: NEW UNEXPLAINABLE CHANGES IN BOWEL CONTROL NO . CONSTIPATION NO . GENITOURINARY: ANY NEW CHANGE IN BLADDER CONTROL? NO . NEUROLOGY: NEW ONSET DIZZINESS OR NEUROLOGICAL CHANGES NOT MENTIONED NO . NEW NUMBNESS OR PAIN PATTERNS NOT MENTIONED AND PERTINENT TO TODAY'S VISIT NO . CARDIOLOGY: NEW CHEST PRESSURE NO . PATIENT DENIES NO . RESPIRATORY: UNEXPLAINABLE COUGH NO . NEW SHORTNESS OF BREATH NO . EXAMINATION GENERAL EXAMINATION: GENERALWELL DEVELOPED AND WELL NOURISHED, WELL GROOMED. PSYCHAPPROPRIATE MOOD AND AFFECT , NORMAL SPEECH, GOOD EYE CONTACT. CHEST:NORMAL, SYMMETRICAL. LUNGS:CLEAR TO AUSCULTATION, NO WHEEZES, NO RHONCHI. HEART:NORMAL SINUS RHYTHM. ASSESSMENTS CHRONIC PRESCRIPTION OPIATE USE - Z79.891 (PRIMARY) SPONDYLOSIS OF CERVICAL REGION WITHOUT MYELOPATHY OR RADICULOPATHY - M47.812 TREATMENT CHRONIC PRESCRIPTION OPIATE USE CONTINUE TRAMADOL HCL TABLET, 50 MG, 1 TABLET NEEDED, ORALLY, Q6-8H PRN PAIN MDD2 CONTINUE GABAPENTIN TABLET, 600 MG, 1 CAPSULE, ORALLY, TID REFILL OXYCODONE-ACETAMINOPHEN TABLET, 10-325 MG, 1 TABLET NEEDED, ORALLY FOR PAIN, Q4-6H PRN MDD5, 30 DAYS, 150 LAB: URINE TEST GROUP [facility] 01/29/2021 2:27:24 PM > LAST DOSE: GABAPENTIN 01/28/2021, OXYCODONE NOTES: ISTOP REGISTRY REVIEWED AND DEMONSTRATES COMPLLIANCE. BRINGS IN MEDICATIONS WHICH IS APPROPRIATE FOR WHAT WAS DISPENSED. RECENT URINE TOXICOLOGY REVIEWED. NO UNAUTHORIZED MEDICATIONS. NO ILLICIT SUBSTANCES AND PRESCRIBED MEDICATIONS WERE PRESENT. , RISKS OF NARCOTIC/OPIOD MEDICATIONS INCLUDES BUT IS NOT LIMITED TO RISK OF DEPENDANCE/DEVELOPMENT OF ADDICTION, MOOD DISTURBANCE AND DEPRESSION, OSTEOPOROSIS, HORMONAL AND LABIDAL CHANGES, RESPIRATORY DEPRESSION AND . PATIENT IS ADVISED NOT TO DRIVE OR DRINK ALCOHOL WHILE ON THESE MEDICATIONS. PROCEDURE CODES [id number] ESTABILISHED PATIENT [facility] CHARGE DISPOSITION & COMMUNICATION FOLLOW UP 3 MONTHS (REASON: MED MGMNT/NECK PAIN/REVIEW UTOX) ELECTRONICALLY SIGNED BY CHETAN HOWELL ON 01/30/2021 AT 11:22 AM EDT DISCLAIMER : THIS IS A VISIT SUMMARY EXTRACTED FROM THE [employer]ID CHART. IT IS NOT A COPY OF THE [employer] PROGRESS NOTE. YURIY
== END ==
LOC: M PAIN 13:45
PROVIDERS: ATTEND Nurse Practitioner Family
DX: M47.812 Spondylosis without myelopathy or radiculopathy, cervical region (principal); G89.29 Other chronic pain; Z86.14 Personal history of Methicillin resistant Staphylococcus aureus infection; Z98.84 Bariatric surgery status; Z79.01 Long term (current) use of anticoagulants; Z79.899 Other long term (current) drug therapy

== ENCOUNTER → 2021-03-25 | Outpatient (CLI) | payer MEDICARE, MEDICAID ==
[~2021-03-25] MED LIST changes: +LEFL10TA12; -LEFL20TA10
== END ==
LOC: M PAIN 11:30
PROVIDERS: ATTEND Nurse Practitioner Family
DX: M47.812 Spondylosis without myelopathy or radiculopathy, cervical region (principal); G89.29 Other chronic pain; M79.7 Fibromyalgia; K21.9 Gastro-esophageal reflux disease without esophagitis; E03.9 Hypothyroidism, unspecified; E55.9 Vitamin D deficiency, unspecified; G47.30 Sleep apnea, unspecified; J44.9 Chronic obstructive pulmonary disease, unspecified; Z86.14 Personal history of Methicillin resistant Staphylococcus aureus infection; Z86.711 Personal history of pulmonary embolism; Z88.1 Allergy status to other antibiotic agents; Z88.2 Allergy status to sulfonamides; Z88.8 Allergy status to other drugs, medicaments and biological substances; Z79.01 Long term (current) use of anticoagulants; Z79.899 Other long term (current) drug therapy

== ENCOUNTER → 2021-11-04 | Outpatient (CLI) | payer MEDICARE, MEDICAID | LOC: M PAIN 14:30 | PROVIDERS: ATTEND Nurse Practitioner Family | DX: M47.812 Spondylosis without myelopathy or radiculopathy, cervical region (principal); M96.1 Postlaminectomy syndrome, not elsewhere classified; M79.7 Fibromyalgia; K21.9 Gastro-esophageal reflux disease without esophagitis; E03.9 Hypothyroidism, unspecified; E55.9 Vitamin D deficiency, unspecified; G47.30 Sleep apnea, unspecified; J44.9 Chronic obstructive pulmonary disease, unspecified; Z86.14 Personal history of Methicillin resistant Staphylococcus aureus infection; Z86.711 Personal history of pulmonary embolism; Z98.84 Bariatric surgery status; Z88.1 Allergy status to other antibiotic agents; Z88.2 Allergy status to sulfonamides; Z88.8 Allergy status to other drugs, medicaments and biological substances; Z79.01 Long term (current) use of anticoagulants; Z79.899 Other long term (current) drug therapy ==

== ENCOUNTER → 2022-01-19 | Outpatient (REF) | payer MEDICARE, MEDICAID ==
[2022-01-19 22:21] LABS: CREATININE FOR GFR 1.33 MG/DL (0.55-1.30); GLOMERULAR FILTRATION RATE 42.5 (>45)
== END ==
LOC: M LAB REF 19:45
PROVIDERS: ATTEND Nurse Practitioner Family
DX: M47.812 Spondylosis without myelopathy or radiculopathy, cervical region (principal)

== ENCOUNTER → 2022-01-21 | Outpatient (CLI) | payer MEDICAID, MEDICARE ==
[~2022-01-21] MED LIST changes: +PROHANCE 279.3MG/ML 5ML VIAL ONE
== END ==
LOC: M PLAIMG 14:39
PROVIDERS: ATTEND Nurse Practitioner Family
DX: M43.02 Spondylolysis, cervical region (principal)
CPT/HCPCS: 72156; A9576

== ENCOUNTER → 2022-01-22 | Outpatient (REF) | payer MEDICARE, MEDICAID ==
[~2022-01-22] MED LIST changes: -PROHANCE 279.3MG/ML 5ML VIAL ONE
[2022-01-22 17:47] LABS: HEMOGLOBIN 10.1 g/dl (12.0-15.5); MEAN CORPUSCULAR HEMOGLOBIN 24.8 pg (27.0-33.0); MEAN CORPUSCULAR HGB CONC 29.7 g/dl (32.0-36.5); MEAN CORPUSCULAR VOLUME 83.3 fl (80.0-96.0); PLATELET COUNT, AUTOMATED 308 10^3/uL (150-450); RED BLOOD COUNT 4.08 10^6/uL (4.00-5.40); WHITE BLOOD COUNT 7.2 10^3/uL (4.0-10.0)
[2022-01-22 18:18] LABS: HEMOGLOBIN A1c 4.9 %
[2022-01-22 18:28] LABS: ALBUMIN 3.4 GM/DL (3.2-5.2); BILIRUBIN,TOTAL 0.6 MG/DL (0.2-1.0); CALCIUM LEVEL 9.3 MG/DL (8.8-10.2); CHOLESTEROL RISK RATIO 2.81 (<5); CREATININE FOR GFR 1.14 MG/DL (0.55-1.30); FREE T4 1.05 NG/DL (0.76-1.46); GLOMERULAR FILTRATION RATE 50.8 (>45); POTASSIUM SERUM 4.5 MEQ/L (3.5-5.1); THYROID STIMULATING HORMONE 1.06 uIU/ML (0.358-3.740); TOTAL PROTEIN 6.5 GM/DL (6.4-8.2)
[2022-01-22 18:39] LABS: FERRITIN 12 NG/ML (8-252); IRON (FE) 53 UG/DL (50-170); PERCENT SATURATION 14.2 % (13.2-45.0); TOTAL IRON BINDING CAPACITY 373 UG/DL (250-450)
[2022-01-22 19:07] LABS: FOLATE > 24.0 NG/ML; VITAMIN B12 LEVEL 549 PG/ML
== END ==
LOC: M SFHCCLAY 13:48
PROVIDERS: ATTEND Nurse Practitioner Family
DX: E03.9 Hypothyroidism, unspecified (principal); E78.5 Hyperlipidemia, unspecified; E55.9 Vitamin D deficiency, unspecified; R73.01 Impaired fasting glucose; M25.532 Pain in left wrist; Z98.84 Bariatric surgery status

== ENCOUNTER → 2022-01-26 | Outpatient (CLI) | payer MEDICARE, MEDICAID | LOC: M CLY 14:29 | PROVIDERS: ATTEND Nurse Practitioner Family | DX: M25.532 Pain in left wrist (principal) ==

== ENCOUNTER → 2022-01-27 | Outpatient (CLI) | payer MEDICARE, MEDICAID | LOC: M PAIN 11:30 | PROVIDERS: ATTEND Nurse Practitioner Family | DX: M47.812 Spondylosis without myelopathy or radiculopathy, cervical region (principal); G89.29 Other chronic pain; M79.7 Fibromyalgia; E03.9 Hypothyroidism, unspecified; E55.9 Vitamin D deficiency, unspecified; G47.30 Sleep apnea, unspecified; J44.9 Chronic obstructive pulmonary disease, unspecified; Z86.14 Personal history of Methicillin resistant Staphylococcus aureus infection; Z86.711 Personal history of pulmonary embolism; Z88.1 Allergy status to other antibiotic agents; Z88.2 Allergy status to sulfonamides; Z88.8 Allergy status to other drugs, medicaments and biological substances; Z79.01 Long term (current) use of anticoagulants; Z79.890 Hormone replacement therapy; Z79.899 Other long term (current) drug therapy ==

== ENCOUNTER → 2022-04-09 | Outpatient (CLI) | payer MEDICARE, MEDICAID | LOC: M PAIN 11:30 | PROVIDERS: ATTEND Nurse Practitioner Family | DX: M47.812 Spondylosis without myelopathy or radiculopathy, cervical region (principal); G89.29 Other chronic pain; M79.7 Fibromyalgia; E03.9 Hypothyroidism, unspecified; E55.9 Vitamin D deficiency, unspecified; G47.30 Sleep apnea, unspecified; J44.9 Chronic obstructive pulmonary disease, unspecified; I10 Essential (primary) hypertension; Z86.14 Personal history of Methicillin resistant Staphylococcus aureus infection; Z86.711 Personal history of pulmonary embolism; Z88.1 Allergy status to other antibiotic agents; Z88.2 Allergy status to sulfonamides; Z88.8 Allergy status to other drugs, medicaments and biological substances; Z79.01 Long term (current) use of anticoagulants; Z79.890 Hormone replacement therapy; Z79.899 Other long term (current) drug therapy ==

== ENCOUNTER → 2022-06-30 | Outpatient (CLI) | payer MEDICARE, MEDICAID | LOC: M PAIN 10:30 | PROVIDERS: ATTEND Nurse Practitioner Family | DX: M47.812 Spondylosis without myelopathy or radiculopathy, cervical region (principal); G89.29 Other chronic pain; M79.7 Fibromyalgia; E03.9 Hypothyroidism, unspecified; E55.9 Vitamin D deficiency, unspecified; G47.30 Sleep apnea, unspecified; J44.9 Chronic obstructive pulmonary disease, unspecified; M06.9 Rheumatoid arthritis, unspecified; I10 Essential (primary) hypertension; Z86.14 Personal history of Methicillin resistant Staphylococcus aureus infection; Z86.711 Personal history of pulmonary embolism; Z88.1 Allergy status to other antibiotic agents; Z88.2 Allergy status to sulfonamides; Z88.8 Allergy status to other drugs, medicaments and biological substances; Z79.01 Long term (current) use of anticoagulants; Z79.890 Hormone replacement therapy; Z79.899 Other long term (current) drug therapy ==

== ENCOUNTER → 2022-10-13 | Outpatient (CLI) | payer MEDICARE, MEDICAID | LOC: M PAIN 14:30 | PROVIDERS: ATTEND Nurse Practitioner Family | DX: M47.812 Spondylosis without myelopathy or radiculopathy, cervical region (principal); G89.29 Other chronic pain; M79.7 Fibromyalgia; E03.9 Hypothyroidism, unspecified; E55.9 Vitamin D deficiency, unspecified; G47.30 Sleep apnea, unspecified; J44.9 Chronic obstructive pulmonary disease, unspecified; I10 Essential (primary) hypertension; Z86.14 Personal history of Methicillin resistant Staphylococcus aureus infection; Z86.711 Personal history of pulmonary embolism; Z88.1 Allergy status to other antibiotic agents; Z88.2 Allergy status to sulfonamides; Z88.8 Allergy status to other drugs, medicaments and biological substances; Z79.01 Long term (current) use of anticoagulants; Z79.890 Hormone replacement therapy; Z79.899 Other long term (current) drug therapy ==

== ENCOUNTER → 2022-12-21 | Outpatient (CLI) | payer MEDICARE, MEDICAID | LOC: M PAIN 14:00 | PROVIDERS: ATTEND Nurse Practitioner Family | DX: M79.10 Myalgia, unspecified site (principal); G89.29 Other chronic pain; M79.7 Fibromyalgia; E03.9 Hypothyroidism, unspecified; E55.9 Vitamin D deficiency, unspecified; G47.30 Sleep apnea, unspecified; J44.9 Chronic obstructive pulmonary disease, unspecified; M06.9 Rheumatoid arthritis, unspecified; I10 Essential (primary) hypertension; Z86.14 Personal history of Methicillin resistant Staphylococcus aureus infection; Z86.711 Personal history of pulmonary embolism; Z88.1 Allergy status to other antibiotic agents; Z88.2 Allergy status to sulfonamides; Z88.8 Allergy status to other drugs, medicaments and biological substances; Z79.01 Long term (current) use of anticoagulants; Z79.890 Hormone replacement therapy; Z79.899 Other long term (current) drug therapy ==

== ENCOUNTER → 2023-02-15 | Outpatient (CLI) | payer MEDICARE, MEDICAID ==
[~2023-02-15] MED LIST changes: +DICL100G10; +DICL100G10 TOP; -DICL1GEL3; -DICL1GEL3 TOP; -GABA-283 PO; +GABA-284 PO
== END ==
LOC: M PAIN 10:30
PROVIDERS: ATTEND Anesthesiology
DX: M79.10 Myalgia, unspecified site (principal); M54.2 Cervicalgia; G89.29 Other chronic pain; M96.1 Postlaminectomy syndrome, not elsewhere classified; M79.7 Fibromyalgia; E03.9 Hypothyroidism, unspecified; E55.9 Vitamin D deficiency, unspecified; G47.30 Sleep apnea, unspecified; J44.9 Chronic obstructive pulmonary disease, unspecified; M06.9 Rheumatoid arthritis, unspecified; I10 Essential (primary) hypertension; Z86.14 Personal history of Methicillin resistant Staphylococcus aureus infection; Z86.711 Personal history of pulmonary embolism; Z98.84 Bariatric surgery status; Z88.1 Allergy status to other antibiotic agents; Z88.2 Allergy status to sulfonamides; Z88.8 Allergy status to other drugs, medicaments and biological substances; Z79.01 Long term (current) use of anticoagulants; Z79.899 Other long term (current) drug therapy

== ENCOUNTER → 2023-05-17 | Outpatient (CLI) | payer MEDICARE, MEDICAID | LOC: M PAIN 14:00 | PROVIDERS: ATTEND Nurse Practitioner Family | DX: M96.1 Postlaminectomy syndrome, not elsewhere classified (principal); G89.29 Other chronic pain; Z98.84 Bariatric surgery status; Z88.1 Allergy status to other antibiotic agents; Z88.2 Allergy status to sulfonamides; Z88.8 Allergy status to other drugs, medicaments and biological substances; Z79.01 Long term (current) use of anticoagulants; Z79.899 Other long term (current) drug therapy ==

== ENCOUNTER → 2023-11-11 | Outpatient (CLI) | payer MEDICARE, MEDICAID | LOC: M PAIN 11:15 | PROVIDERS: ATTEND Nurse Practitioner Family | DX: M96.1 Postlaminectomy syndrome, not elsewhere classified (principal); Z79.891 Long term (current) use of opiate analgesic; G89.29 Other chronic pain; M79.7 Fibromyalgia; K21.9 Gastro-esophageal reflux disease without esophagitis; E03.9 Hypothyroidism, unspecified; E55.9 Vitamin D deficiency, unspecified; E66.9 Obesity, unspecified; G47.30 Sleep apnea, unspecified; J44.9 Chronic obstructive pulmonary disease, unspecified; M06.9 Rheumatoid arthritis, unspecified; Z79.890 Hormone replacement therapy; Z79.899 Other long term (current) drug therapy; Z79.01 Long term (current) use of anticoagulants; Z86.711 Personal history of pulmonary embolism; Z88.1 Allergy status to other antibiotic agents; Z88.2 Allergy status to sulfonamides; Z88.8 Allergy status to other drugs, medicaments and biological substances; Z68.33 Body mass index [BMI] 33.0-33.9, adult ==

== ENCOUNTER → 2024-01-24 | Outpatient (CLI) | payer MEDICARE, MEDICAID | LOC: M PAIN 10:45 | PROVIDERS: ATTEND Nurse Practitioner Family | DX: M96.1 Postlaminectomy syndrome, not elsewhere classified (principal); Z79.891 Long term (current) use of opiate analgesic; M79.7 Fibromyalgia; K21.9 Gastro-esophageal reflux disease without esophagitis; E03.9 Hypothyroidism, unspecified; G47.00 Insomnia, unspecified; E55.9 Vitamin D deficiency, unspecified; E66.9 Obesity, unspecified; Z86.711 Personal history of pulmonary embolism; M06.9 Rheumatoid arthritis, unspecified; Z79.890 Hormone replacement therapy; Z79.899 Other long term (current) drug therapy; Z88.1 Allergy status to other antibiotic agents; Z88.2 Allergy status to sulfonamides; Z88.8 Allergy status to other drugs, medicaments and biological substances; Z68.32 Body mass index [BMI] 32.0-32.9, adult ==

== ENCOUNTER → 2024-05-23 | Outpatient (CLI) | payer MEDICARE, MEDICAID ==
[~2024-05-23] MED LIST changes: +GABA-1490; +GABA-1490 PO; -GABA600T4; -GABA600T4 PO
== END ==
LOC: M PAIN 11:15
PROVIDERS: ATTEND Nurse Practitioner Family
DX: M96.1 Postlaminectomy syndrome, not elsewhere classified (principal); Z79.891 Long term (current) use of opiate analgesic; G89.29 Other chronic pain; M79.7 Fibromyalgia; K21.9 Gastro-esophageal reflux disease without esophagitis; E03.9 Hypothyroidism, unspecified; G47.00 Insomnia, unspecified; E55.9 Vitamin D deficiency, unspecified; E66.9 Obesity, unspecified; G47.30 Sleep apnea, unspecified; M06.9 Rheumatoid arthritis, unspecified; Z86.711 Personal history of pulmonary embolism; Z79.890 Hormone replacement therapy; Z79.01 Long term (current) use of anticoagulants; Z79.899 Other long term (current) drug therapy; Z88.1 Allergy status to other antibiotic agents; Z88.2 Allergy status to sulfonamides; Z88.8 Allergy status to other drugs, medicaments and biological substances; Z68.33 Body mass index [BMI] 33.0-33.9, adult